=== PATIENT | male | born 1945 | race Caucasian/White ===

== ENCOUNTER 2017-09-03 15:17 | Inpatient (IN) | payer OTHER, MEDICARE ==
[~2017-09-03] VITALS: Ht 180.3 cm; Wt 138.9 kg
[2017-09-03 16:25] LABS: ABSOLUTE BASOPHIL COUNT 0 /CUMM (0.0-0.2); ABSOLUTE EOSINOPHIL COUNT 0.2 /CUMM (0.0-0.7); ABSOLUTE GRANULOCYTE CT 4.6 /CUMM (1.4-6.5); ABSOLUTE LYMPH COUNT 1.8 /CUMM (1.2-3.4); ABSOLUTE MONOCYTE COUNT 0.7 /CUMM (0.10-0.60); BASOPHIL % 0.5 % (0.0-2.0); EOSINOPHIL % 2.9 % (0-5); GRANULOCYTE % 62.5 % (42.2-75.2); HEMATOCRIT 37.7 % (42-52); MEAN CORPUSCULAR HGB 29.5 PG (27.0-31.0); MEAN CORPUSCULAR HGB CONC 33.5 G/DL (33.0-37.0); MEAN CORPUSCULAR VOLUME 88.2 FL (80.0-94.0); MEAN PLATELET VOLUME 9.1 FL (7.4-10.4); PLATELET COUNT 96 /CUMM (130-400); RBC DISTRIBUTION WIDTH 14.4 % (11.5-14.5); RED BLOOD CELL CT 4.28 /CUMM (4.70-6.10); WHITE BLOOD CELL COUNT 7.4 /CUMM (4.8-10.8)
--- NOTE | 2017-09-03 17:20 | ED DYSPNEA/ASTHMA COMPLAINT ---
History of Present Illness General Chief Complaint: General Adult Stated Complaint: SENT IN BY MD CORDOBA FOR ABNORMAL XRAY Source: patient Exam Limitations: no limitations Vital Signs & Intake/Output Vital Signs & Intake/Output Vital Signs Date Time Temp Pulse Resp B/P B/P Pulse O2 O2 Flow FiO2 Mean Ox Delivery Rate 09/04 0309 89 117/83 09/03 2244 97.4 66 18 140/80 94 Nasal 2.0L Cannula 09/03 2217 Nasal 2.0L Cannula 09/03 2054 98.2 72 22 154/68 92 Nasal 2.0L Cannula 09/03 2032 97.1 73 22 145/68 94 Nasal 2.0L Cannula 09/03 1955 Nasal 2.0L Cannula 09/03 1906 98.1 09/03 165 100 Nasal 2.0L Cannula 09/03 1656 97.3 77 20 121/64 100 Nasal 2.0L Cannula 09/03 1549 98.2 61 16 129/83 93 Room Air ED Intake and Output 09/04 0000 09/03 1200 Intake Total 0 Output Total Balance 0 Intake, Oral 0 Patient 306 lb Weight Weight Bed scale Measurement Method Allergies Coded Allergies: No Known Allergies (09/03/17) Triage Note: 72M C/O WORSENING SOB AT REST AND EXERTION X1 WEEK. DID AMBLATORY O2 AT DR SNEED OFFICE AND O2 SAT MID 80'S. AMB O2 90-91% IN TRIAGE AND 93% AT REST. REPORTS MARKETING RESEARCH COORDINATOR COUGH AND GENERAL MAILAISE. AFEBRILE. DENIES CHEST PAIN. DENIES SORE THROAT. ON COUMADIN FOR AFIB INR 2.9 TODAY Triage Nurses Notes Reviewed? yes Onset: Abrupt Duration: week(s):, constant, getting worse Timing: recent history Severity: severe HPI: 72-year-old male comes into the emergency room with worsening or shortness of breath has been going on for the past 6 months. Patient reports that his symptoms got profoundly worse over the past month in the past day especially. He has had a nonproductive cough. Shortness of breath is worse with exertion of any sort. He's had some intermittent chest tightness at times. Denies any fever. Denies any vomiting. Denies any diaphoresis. Denies any other associated symptoms. (Scot VENTURA,Montrell) Reconcile Medications Digoxin 250 MCG TABLET 1 TAB PO DAILY HEART (Reported) Fluticasone/Vilanterol (Breo Ellipta 200-25 Mcg INH) 200 MCG-25 MCG/DOSE BLST.W.DEV 1 PUFF INH QAM RESP. (Reported) Gabapentin 300 MG CAPSULE 1 CAP PO TID PRN NERVE PAIN (Reported) Glipizide 10 MG TABLET 1 TAB PO QAM DM (Reported) Insulin Glargine,Hum.rec.anlog (Lantus Solostar) 100 UNIT/ML (3 ML) INSULN.PEN 32 UNITS SC QAM DM (Reported) Insulin Lispro (Humalog Kwikpen U-100) 100 UNIT/ML INSULN.PEN 9 UNITS SC TIDAC /HS DM (Reported) Ipratropium [place] 21 MCG (0.03 %) SPRAY 2 SPRAY NASB AD PRN NASAL CONGESTION (Reported) Levocetirizine Dihydrochloride 5 MG TABLET 1 TAB PO QPM ALLERGIES (Reported) Metoprolol Succinate 200 MG TAB.ER.24H 1 TAB PO QAM HEART/BP (Reported) Metoprolol Succinate 100 MG TAB.ER.24H 1 TAB PO QPM HEART/BP (Reported) Multiple Vitamin (Multivitamins) 1 EACH TABLET 1 TAB PO DAILY SUPPLEMENT ( Reported) Oxycodone HCl/Acetaminophen (Oxycodone-Acetaminophen 5-325) 5 MG-325 MG TABLET 1 TAB PO TIDPRN PRN PAIN (Reported) Saxagliptin (Onglyza) 5 MG TABLET 1 TAB PO QAM DM (Reported) Trazodone HCl 100 MG TABLET 1 TAB PO QPM SLEEP (Reported) Valsartan 80 MG TABLET 1 TAB PO DAILY HEART (Reported) Warfarin Sodium (Jantoven) 7.5 MG TABLET 1 TAB PO Friday BLOOD THINNER (Reported) Warfarin Sodium (Coumadin) 5 MG TABLET 1 TAB PO [facility] BLOOD THINNER ( Reported) (Scott HICKEY,Venessa) Past History Travel History Traveled to [place] past 21 day No Medical History Any Pertinent Medical History? see below for history Cardiovascular: AFIB Endocrine: diabetes Surgical History Surgical History: non-contributory Psychosocial History Tobacco Use: Never used Family History Hx Contributory? No (Montrell Peres) Review of Systems Review of Systems Constitutional: Reports: no symptoms. EENTM: Reports: no symptoms. Respiratory: Reports: see HPI. Cardiovascular: Reports: no symptoms. GI: Reports: no symptoms. Genitourinary: Reports: no symptoms. Musculoskeletal: Reports: no symptoms. Skin: Reports: no symptoms. Neurological/Psychological: Reports: no symptoms. Hematologic/Endocrine: Reports: no symptoms. Immunologic/Allergic: Reports: no symptoms. All Other Systems: Reviewed and Negative (Montrell Peres) Physical Exam Physical Exam General Appearance: well developed/nourished, alert, awake Head: atraumatic, normal appearance Eyes: Bilateral: normal appearance. Ears, Nose, Throat: normal ENT inspection, hearing grossly normal Neck: normal inspection Respiratory: no respiratory distress, decreased breath sounds Cardiovascular: irregularly irregular Extremities: normal inspection Neurologic/Psych: awake, alert, oriented x 3 Skin: intact, normal color Core Measures ACS in differential dx? Yes CVA/TIA Diagnosis No Sepsis Present: No Sepsis Focused Exam Completed? No (Montrell Peres) Progress Differential Diagnosis: asthma, AMI, bronchitis, costochondritis, CHF, COPD, musculoskeletal pain, pericarditis, pulmonary embolism, pneumonia, pneumothorax, rib fracture, unstable angina Plan of Care: Orders Procedure Date/time Status Consistent Carbohydrate 3 09/04 B Active PROTHROMBIN TIME 09/04 06 Active CBC WITHOUT DIFFERENTIAL 09/04 0600 Active BASIC ELECTROLYTES PLUS BUN&CR 09/04 0600 Active PROTHROMBIN TIME 09/03 2344 Complete TRC EVALUATION (GEN) 09/03 2324 Active Pathway - chart 09/03 2324 Active House Staff 09/03 2324 Active Patient Data 09/03 2324 Active Code Status 09/03 2324 Active FingerStick- Glucose 09/03 225 Active Wound Care/Dressing 09/03 2252 Active Vital Signs 09/03 221 Active Teach/Educate 09/03 2214 Active Pain Treatment and Response 09/03 2214 Active Nutritional Intake, Monitor 09/03 2214 Active Isolation 09/03 2214 Active Intake & Output 09/03 2214 Active Patient Care Conference 09/03 2214 Active Activity/Ambulation 09/03 2214 Active OXYGEN SETUP (GEN) 09/03 2199 Complete Patient Data 09/03 205 Active Admit to inpatient 09/03 2044 Active Vital Signs 09/03 204 Active Intake & Output 09/03 1658 Complete B-TYPE NATRIURETIC PEP (BNP) 09/03 1614 Complete TROPONIN LEVEL 09/03 1605 Complete COMPREHENSIVE METABOLIC PANEL 09/03 1605 Complete CBC WITHOUT DIFFERENTIAL 09/03 1605 Complete RAPID VIRAL INFLUENZA A 09/03 1548 Complete EKG 09/03 1548 Active Lab Add-on Test 09/03 UNK Active VTE Mechanical Prophylaxis 09/03 UNK Active Vital Signs 09/03 UNK Complete Intake & Output 09/03 UNK Active Current Medications Sig/Shavon Start time Last Medication Dose Stop Time Status Admin Azithromycin 500 MG DAILY 09/04 1000 AC (Zithromax) Dextrose/Water 250 ML (D5W) Digoxin 0.25 MG DAILY 09/04 1000 AC (Lanoxin) Insulin Detemir 32 UNITS DAILY 09/04 1000 AC (Levemir) Losartan Potassium 25 MG DAILY 09/04 1000 AC (Cozaar) Methylprednisolone 40 MG Q12 09/04 1000 AC (Solumedrol) Metoprolol Succinate 200 MG DAILY 09/04 1000 CAN (Toprol Xl) Insulin Aspart 0 TIDAC 09/04 0800 AC (NovoLOG) Metoprolol Succinate 100 MG QPM 09/04 0300 AC 09/04 (Toprol Xl) 0309 Gabapentin 300 MG TID PRN 09/03 2330 AC (Neurontin) Acetaminophen 650 MG Q6P PRN 09/03 2315 AC (Tylenol) Oxycodone/ 1 TAB Q6P PRN 09/03 2315 AC Acetaminophen (Percocet) Laboratory Tests 09/04/17 0020: PT 32.8 H, INR 3.16 H 09/03/17 1614: Anion Gap 11, Estimated GFR > 60, BUN/Creatinine Ratio 30.0 H, Glucose 244 H, Calcium 8.9, Total Bilirubin 0.7, AST 40, ALT 51, Alkaline Phosphatase 60, Troponin I < 0.01, Kkl-R-Zyutrvugsxh Pept 1360 H, Total Protein 6.8, Albumin 3.3 L, Globulin 3.5, Albumin/Globulin Ratio 0.9 L, CBC w Diff NO MAN DIFF REQ, RBC 4.28 L, MCV 88.2, MCH 29.5, MCHC 33.5, RDW 14.4, MPV 9.1, Gran % 62.5, Lymphocytes % 24.5, Monocytes % 9.6 H, Eosinophils % 2.9, Basophils % 0.5, Absolute Granulocytes 4.6, Absolute Lymphocytes 1.8, Absolute Monocytes 0.7 H, Absolute Eosinophils 0.2, Absolute Basophils 0 Microbiology 09/03 1553 NASOPHARYN: Influenza Virus A & B Rapid Smear - COMP PATIENT REPORTS SEEING A MANAGER CLINICAL INFORMATICS IN [facility] 6 MONTHS AGO. DUE FOR PFT'S IN OCTOBER. HE WAS PRESCRIBED BREO. ALSO HAS A DIAGNOSIS OF LARISA BUT NON COMPLIANT WITH CPAP. TOLD THAT HE HAD SCARRING OF HIS LUNGS AND WAS EVALUTED AT THAT TIME FOR PNEUMONIA. PROGRESSIVE SOB WITH EXERTION FOR ONE MONTH BUT STATES THAT TODAY AND YESTERDAY SYMPTOMS GOT WORSE. (Scott HICKEY,Venessa) Diagnostic Imaging: Viewed by Me: CT Scan. Discussed w/RAD: CT Scan. Radiology Impression: PATIENT: ELAINE DELACRUZ PRESENT AGE: 72 PATIENT ACCOUNT NO: [id number] : 45 LOCATION: [facility] ORDERING PHYSICIAN: Montrell VENTURA SERVICE DATE: 09/03/17 EXAM TYPE: CAT - CTA CHEST-PULMONARY EMBOLISM EXAMINATION: CT ANGIOGRAM OF THE CHEST WITH AND WITHOUT CONTRAST (CT PULMONARY ANGIOGRAM FOR PE) CLINICAL INFORMATION: Shortness of breath and hypoxia. Assess for pulmonary embolus. COMPARISON: Chest x-ray obtained earlier 09/03/2017. TECHNIQUE: Prior to contrast administration, noncontrast localization images were obtained. Subsequently, multidetector volumetric imaging was performed from the thoracic inlet to below the diaphragms following the administration of 95 mL Optiray 320 intravenous contrast. No contrast reaction reported. Sagittal, coronal, and MIP oblique sagittal reformatted images were obtained on the CT workstation, uploaded to PACS, and reviewed. Total exam dose-length product 623.82 mGy-cm. FINDINGS: QUALITY OF STUDY/CONTRAST BOLUS: Satisfactory PULMONARY ARTERIES: There are no central or segmental pulmonary emboli or thrombi. THORACIC AORTA: There are atheromatous calcifications of the aortic arch and origins of the great vessels of the neck. There is no evidence of thoracic aortic aneurysm or dissection on the available images. LUNG: There are patchy areas of opacity in the left upper and left lower lobes peripherally. Subpleural nodular opacities with increased interstitial markings are seen in the right upper lobe anteriorly and at the right base posteriorly. Tree-in-bud opacities are seen in the anterior right upper lobe. PLEURA: There are small right and trace left pleural effusions. There is some fluid within the left major fissure. MEDIASTINUM: The heart is mildly prominent. There is no pericardial effusion. There are AP window, paratracheal, para-aortic , azygoesophageal and subcarinal enlarged lymph nodes measuring up to 2.2 cm ( image 31/69). The thyroid gland is not well assessed due to beam hardening artifact from adjacent contrast. The central airways are patent. The esophagus appears normal. No evidence of septal bowing or right heart strain. CHEST WALL/ AXILLA: There are no chest wall masses. There is no axillary lymphadenopathy. OSSEOUS STRUCTURES: There is a mild dextroscoliosis. There is multilevel narrowing of intervertebral disc height with marginal osteophytes and facet arthropathic changes. There are multilevel costovertebral degenerative changes. There are no suspicious lytic or sclerotic foci. The L1 transverse processes are partially articulated. UPPER ABDOMEN: The gallbladder is well-distended. The other upper abdominal structures are unremarkable. There is no reflux of contrast into the hepatic veins to suggest elevated right heart pressures. IMPRESSION: 1. There are no central segmental pulmonary emboli or thrombi. 2. There are multifocal interstitial changes, which may be consistent with interstitial lung disease, or inflammatory or infectious processes. These correspond to findings on the recent chest x-ray. There are small right and trace left pleural effusions. There is mild cardiomegaly. 3. There are enlarged mediastinal and subcarinal lymph nodes. VTE: Negative. DICTATED BY: Sylvester Cline MD DATE/TIME DICTATED:09/03/171804 HOME HEALTH CARE COORDINATOR:GALE DATE/TIME TRANSCRIBED:09/03/171804 CONFIDENTIAL, DO NOT COPY WITHOUT APPROPRIATE AUTHORIZATION. <Electronically signed in Other Vendor System> SIGNED BY: Sylvester Cline MD 09/03/17 1984 Initial ED EKG: rate (65), AFIB (Montrell Peres) Departure Departure Disposition: STILL A PATIENT Condition: Stable Clinical Impression Primary Impression: Hypoxia Secondary Impressions: Pulmonary fibrosis Referrals: Brittnee Sterling MD (PCP/Family) Departure Forms: Customer Survey General Discharge Information Admission Note Spoke With: Felicita Villagran MD Documentation of Exam: Documentation of any treatments & extenuating circumstances including Concerns Regarding Discharge (functional status, medication knowledge or non-compliance, living conditions, etc.) that warrant an admission rather than observation: Patient will require supplemental oxygen. Patient's oxygen saturation dropped to 88% upon ambulation. Patient feel short of breath. Patient will require IV steroids. Pulmonary consultation. Medically not safe for discharge. These areas in the lung potentially be infectious. Patient may require IV antibiotics repeat imaging. (Montrell Peres) PA/MARKETING RESEARCH COORDINATOR Co-Sign Statement Statement: ED Attending supervision documentation- [X] I saw and evaluated the patient. I have also reviewed all the pertinent lab results and diagnostic results. I agree with the findings and the plan of care as documented in the PA's/MARKETING RESEARCH COORDINATOR's documentation. [X] I have reviewed the ED Record and agree with the PA's/MARKETING RESEARCH COORDINATOR's documentation. [] Additions or exceptions (if any) to the PAs/MARKETING RESEARCH COORDINATOR's note and plan are summarized below: [] (Scott HICKEY,Venessa) Critical Care Note Critical Care Note Critical Care Time: non-applicable (Montrell Peres)
--- NOTE | 2017-09-03 18:24 | CT SCAN REPORT ---
EXAMINATION: CT ANGIOGRAM OF THE CHEST WITH AND WITHOUT CONTRAST (CT PULMONARY ANGIOGRAM FOR PE) CLINICAL INFORMATION: Shortness of breath and hypoxia. Assess for pulmonary embolus. COMPARISON: Chest x-ray obtained earlier 09/03/2017. TECHNIQUE: Prior to contrast administration, noncontrast localization images were obtained. Subsequently, multidetector volumetric imaging was performed from the thoracic inlet to below the diaphragms following the administration of 95 mL Optiray 320 intravenous contrast. No contrast reaction reported. Sagittal, coronal, and MIP oblique sagittal reformatted images were obtained on the CT workstation, uploaded to PACS, and reviewed. Total exam dose-length product 623.82 mGy-cm. FINDINGS: QUALITY OF STUDY/CONTRAST BOLUS: Satisfactory PULMONARY ARTERIES: There are no central or segmental pulmonary emboli or thrombi. THORACIC AORTA: There are atheromatous calcifications of the aortic arch and origins of the great vessels of the neck. There is no evidence of thoracic aortic aneurysm or dissection on the available images. LUNG: There are patchy areas of opacity in the left upper and left lower lobes peripherally. Subpleural nodular opacities with increased interstitial markings are seen in the right upper lobe anteriorly and at the right base posteriorly. Tree-in-bud opacities are seen in the anterior right upper lobe. PLEURA: There are small right and trace left pleural effusions. There is some fluid within the left major fissure. MEDIASTINUM: The heart is mildly prominent. There is no pericardial effusion. There are AP window, paratracheal, para-aortic, azygoesophageal and subcarinal enlarged lymph nodes measuring up to 2.2 cm (image 31/69). The thyroid gland is not well assessed due to beam hardening artifact from adjacent contrast. The central airways are patent. The esophagus appears normal. No evidence of septal bowing or right heart strain. CHEST WALL/AXILLA: There are no chest wall masses. There is no axillary lymphadenopathy. OSSEOUS STRUCTURES: There is a mild dextroscoliosis. There is multilevel narrowing of intervertebral disc height with marginal osteophytes and facet arthropathic changes. There are multilevel costovertebral degenerative changes. There are no suspicious lytic or sclerotic foci. The L1 transverse processes are partially articulated. UPPER ABDOMEN: The gallbladder is well-distended. The other upper abdominal structures are unremarkable. There is no reflux of contrast into the hepatic veins to suggest elevated right heart pressures. IMPRESSION: 1. There are no central segmental pulmonary emboli or thrombi. 2. There are multifocal interstitial changes, which may be consistent with interstitial lung disease, or inflammatory or infectious processes. These correspond to findings on the recent chest x-ray. There are small right and trace left pleural effusions. There is mild cardiomegaly. 3. There are enlarged mediastinal and subcarinal lymph nodes. VTE: Negative.
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
[2017-09-03] MEDS ORDERED: METOPROLOL SUC200 M2 PO (21:10)
[2017-09-03] MEDS ORDERED: DIGOXIN250 MCG PO (21:10)
[2017-09-03] MEDS ORDERED: GLIPIZIDE10 M2 PO (21:10)
[2017-09-03] MEDS ORDERED: METOPROLOL SUC100 M2 PO (21:11)
[2017-09-03] MEDS ORDERED: HUMALOG KW100 UNIT/1 SC (21:11)
[2017-09-03] MEDS ORDERED: VALSARTAN80 M1 PO (21:11)
[2017-09-03] MEDS ORDERED: LANTUS SOL100 UNIT/1 SC (21:12)
[2017-09-03] MEDS ORDERED: OXYCODONE-ACET1 EACH PO (21:12)
[2017-09-03] MEDS ORDERED: TRAZODONE HCL100 M1 PO (21:13)
[2017-09-03] MEDS ORDERED: JANTOVEN7.5 M1 PO (21:13)
[2017-09-03] MEDS ORDERED: BREO ELLIPTA 21 EACH INH (21:14)
[2017-09-03] MEDS ORDERED: GABAPENTIN300 M2 PO (21:14)
[2017-09-03] MEDS ORDERED: LEVOCETIRIZINE D5 M1 PO (21:14)
[2017-09-03] MEDS ORDERED: COUMADIN5 M2 PO (21:14)
[2017-09-03] MEDS ORDERED: MULTIVITAMINS1 EAC9 PO (21:15)
[2017-09-03] MEDS ORDERED: ONGLYZA5 M1 PO (21:15)
[2017-09-03] MEDS ORDERED: IPRATROPIUM BRO30 M2 NASB (21:15)
[2017-09-03 22:44] VITALS: BP 140/80
[2017-09-04 00:52] LABS: PT 32.8 SEC (9.4-12.5)
[2017-09-04 06:11] VITALS: BP 150/78
--- NOTE | 2017-09-04 08:01 | PN- Housestaff ---
[place] 09/04/17 0801: Subjective Follow-up For: Acute hypoxic respiratory failure due to COPD exacerbation Interstitial lung disease Subjective: No overnight events. Patient remained afebrile bladder. Seen and examined this morning. He is using 2 L of oxygen maintaining saturation 92%. Patient denied any chest pain, short of breath, nausea, vomiting, abdominal pain dysuria. Patient is following bark tanner (Dr. Estrada)as outpatient and he is scheduled for pulmonary function test in October 2017. Review of Systems Constitutional: Reports: no symptoms. EENTM: Reports: no symptoms. Cardiovascular: Reports: no symptoms. Respiratory: Reports: see HPI. Gastrointestinal: Reports: no symptoms. Genitourinary: Reports: no symptoms. Neurological/Psychological: Reports: no symptoms. Objective Last 24 Hrs of Vital Signs/I&O Vital Signs Date Time Temp Pulse Resp B/P B/P Pulse O2 O2 Flow FiO2 Mean Ox Delivery Rate 09/04 0852 66 148/76 09/04 0852 66 148/76 09/04 0800 93 Nasal 2.0L Cannula 09/04 0611 97.9 63 18 150/78 92 Nasal Cannula 09/04 0309 89 117/83 09/03 2244 97.4 66 18 140/80 94 Nasal 2.0L Cannula 09/03 2218 Nasal 2.0L Cannula 09/03 2054 98.2 72 22 154/68 92 Nasal 2.0L Cannula 09/03 2033 97.1 73 22 145/68 94 Nasal 2.0L Cannula 09/03 1956 Nasal 2.0L Cannula 09/03 1906 98.1 09/03 1657 100 Nasal 2.0L Cannula 09/03 165 97.3 77 20 121/64 100 Nasal 2.0L Cannula 09/03 1549 98.2 61 16 129/83 93 Room Air Intake & Output 09/04 1600 09/04 0800 09/04 0000 Intake Total 1050 0 Output Total Balance 1050 0 Intake, IV 250 Intake, Oral 800 0 Patient 306 lb Weight Weight Bed scale Measurement Method Physical Exam General Appearance: Alert, Oriented X3, Cooperative, No Acute Distress Skin Temp/Moisture Exam: Warm/Dry Sepsis Skin Exam (color): Normal for Ethnicity HEENT: Atraumatic, PERRLA, EOMI Neck: Supple Cardiovascular: Normal S1, Normal S2 Lungs: Decreased breath sound b/l Abdomen: Soft, No Tenderness Neurological: Normal Speech, Strength at 5/5 X4 Ext, Normal Tone, Sensation Intact Extremities: B/L pedal edema Assessment/Plan Assessment: 72 YO M with PMH of obstructive sleep apnea noncompliant on CPAP, DM and A. fib on warfarin presenting for worsening shortness of breath. The patient was at his electrician underground's office (Dr. Alejandro) when ambulating oxygen patient test was performed and he was satting at 82%. He was advised to get a chest x-ray and then went home. We will admit the patient on general medicine floor for the treatment of acute hypoxic respiratory failure due to COPD exacerbation. Acute hypoxic respiratory failure due to COPD exacerbation: -Patient reported desaturated to 82% on routine follow-up visit with cardiology. -Oxygen supplementation as needed to keep oxygen saturation above 92%. -TRC nebulization as needed -IV Solu-Medrol changed to by mouth prednisone. -Sputum cultures -IV azithromycin for 5 days -We will continue Mucinex -We will follow pulmonology recommendations History of Diabetes mellitus: -Accu-Cheks -Insulin NovoLog according to sliding scale -We will continue insulin Levemir 32 units daily History of A. fib: -We will continue warfarin according to INR to keep it 2-2.5 -We will continue metoprolol according to the recommendations of electrician underground. History of hypertension: We will continue metoprolol and losartan History of chronic pain: We'll continue his home medications. DVT Prophylaxis: Mechanical and patient is already on warfarin CODE STATUS: Full code Problem List: 1. COPD exacerbation 2. Acute respiratory failure with hypoxia Pain Ratin Pain Location: none Pain Goal: Remain pain free Pain Plan: pain path way Tomorrow's Labs & Rationales: cbc/bep/inr Ghulam Huizar MD 09/04/17 1637: Attending MD Review Statement Attending Statement Attending MD Statement: examined this patient, discuss w/resident/PA/SUPPLIER QUALITY, agreed w/resident/PA/SUPPLIER QUALITY, reviewed EMR data (avail) Attending Assessment/Plan: 72M PMH paroxysmal atrial fibrillation on Coumadin, HTN, COPD, ILD presenting with dyspnea and hypoxia 82%, with CT showing evidence of ILD with mediastinal and hilar lymphadenopathy. Patient feels better today. His breathing has improved. He has no other complaints. Vitals stable. 1. Acute exacerbation of interestitial lung disease 2. Acute hypoxemic respiratory failure Plan - Continue on general medicine - Continue Prednisone - Continue IV Lasix - I/O, daily weights - Cardiology and pulmonary consults - Obtain echocardiogram - Continue Azithromycin - Nebulizer treatments - Titrate down oxygen as tolerated - Continue home medications - DVT PPx
--- NOTE | 2017-09-04 08:26 | Admission Certification ---
Admission Certification Certification Statement - As attending physician, I certify that at the time of - admission, based on clinical presentation, severity of - symptoms, need for further diagnostic testing and - therapeutic interventions, and risk of adverse outcomes - without in-hospital treatment, in my clinical assessment, - this patient requires an acute hospital stay for a minimum - of two nights or longer. I have also considered psychsocial - factors such as support system, advanced age, financial - issues, cognitive issues, and failed out-patient treatments, - past re-admission history, safety of patient, and lack of - compliance as applicable. Specific rationale supporting this admission is: COPD exacerbation, suspected ILD
[2017-09-04 08:56] LABS: ABSOLUTE BASOPHIL COUNT 0 /CUMM (0.0-0.2); ABSOLUTE EOSINOPHIL COUNT 0 /CUMM (0.0-0.7); ABSOLUTE GRANULOCYTE CT 6.4 /CUMM (1.4-6.5); ABSOLUTE LYMPH COUNT 0.9 /CUMM (1.2-3.4); ABSOLUTE MONOCYTE COUNT 0.1 /CUMM (0.10-0.60); BASOPHIL % 0.3 % (0.0-2.0); EOSINOPHIL % 0 % (0-5); HEMATOCRIT 40.7 % (42-52); MEAN CORPUSCULAR HGB 29.5 PG (27.0-31.0); MEAN CORPUSCULAR HGB CONC 33.4 G/DL (33.0-37.0); MEAN CORPUSCULAR VOLUME 88.3 FL (80.0-94.0); MEAN PLATELET VOLUME 10.1 FL (7.4-10.4); RBC DISTRIBUTION WIDTH 14.1 % (11.5-14.5); RED BLOOD CELL CT 4.61 /CUMM (4.70-6.10); WHITE BLOOD CELL COUNT 7.4 /CUMM (4.8-10.8)
[2017-09-04 10:00] LABS: GRANULOCYTE % 85.9 % (42.2-75.2); PLATELET COUNT 90 /CUMM (130-400)
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
[2017-09-04 15:10] VITALS: BP 148/80
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
[2017-09-04 22:22] VITALS: BP 140/80
[2017-09-05 07:11] VITALS: BP 144/82
--- NOTE | 2017-09-05 07:45 | PN- Housestaff ---
[facility]45: Subjective Follow-up For: Acute hypoxic respiratory failure due to COPD exacerbation Interstitial lung disease Hypomagnesemia Subjective: No overnight events. Patient remained afebrile overnight. Seen and examined this morning. Patient is using 2 L of oxygen maintaining saturation 94%. Patient denied any chest pain, short of breath, nausea, vomiting, chills, fever, abdominal pain dysuria. Review of Systems Constitutional: Reports: no symptoms. EENTM: Reports: no symptoms. Cardiovascular: Reports: no symptoms. Respiratory: Reports: see HPI. Gastrointestinal: Reports: no symptoms. Musculoskeletal: Reports: no symptoms. Neurological/Psychological: Reports: no symptoms. Objective Last 24 Hrs of Vital Signs/I&O Vital Signs Date Time Temp Pulse Resp B/P B/P Pulse O2 O2 Flow FiO2 Mean Ox Delivery Rate 09/05 0915 80 144/82 09/05 0915 80 144/82 09/05 0800 94 Nasal 2.0L Cannula 09/05 0711 97.9 80 22 144/82 94 Nasal 2.0L Cannula 09/05 0000 Nasal 2.0L Cannula 09/04 2224 140/80 02 2222 97.9 82 22 140/80 94 Nasal 2.0L Cannula 09/04 2054 94 Nasal 2.0L Cannula 09/04 1735 Nasal 2.0L Cannula 09/04 1600 94 Nasal 2.0L Cannula 09/04 1510 97.7 80 30 148/80 92 Nasal 2.0L Cannula Intake & Output 09/05 1600 09/05 0800 09/05 0000 Intake Total 800 Output Total Balance 800 Intake, Oral 800 Physical Exam General Appearance: Alert, Oriented X3, Cooperative Skin Temp/Moisture Exam: Warm/Dry Sepsis Skin Exam (color): Normal for Ethnicity HEENT: Atraumatic, PERRLA, EOMI Neck: Supple Cardiovascular: Normal S1, Normal S2 Lungs: Clear to Auscultation Abdomen: Soft, No Tenderness Neurological: Normal Speech, Strength at 5/5 X4 Ext, Normal Tone, Sensation Intact Extremities: B/L pedal edema Assessment/Plan Assessment: 72 YO M with PMH of obstructive sleep apnea noncompliant on CPAP, DM and A. fib on warfarin presenting for worsening shortness of breath. The patient was at his mover helper's office (Dr. Alejandro) when ambulating oxygen patient test was performed and he was satting at 82%. He was advised to get a chest x-ray and then went home. We will admit the patient on general medicine floor for the treatment of acute hypoxic respiratory failure due to COPD exacerbation. Acute hypoxic respiratory failure due to COPD exacerbation: -Patient reported desaturated to 82% on routine follow-up visit with cardiology. -Oxygen supplementation as needed to keep oxygen saturation above 92%. -TRC nebulization as needed -Continue prednisone 40mg -Sputum cultures -IV azithromycin for 5 days. Day 2 -We will continue Mucinex -We will follow pulmonology recommendations Hypomagnesemia: -we will replete magnesium. -we will follow the levels. History of Diabetes mellitus: -Accu-Cheks -Insulin NovoLog according to sliding scale -We will continue insulin Levemir 32 units daily History of A. fib: -We will continue warfarin according to INR to keep it 2-2.5 -We will continue metoprolol according to the recommendations of mover helper. History of hypertension: We will continue metoprolol and losartan History of chronic pain: We'll continue his home medications. DVT Prophylaxis: Mechanical and patient is already on warfarin CODE STATUS: Full code Problem List: 1. Acute respiratory failure with hypoxia 2. COPD exacerbation Pain Ratin Pain Location: none Pain Goal: Remain pain free Pain Plan: pain pathway Tomorrow's Labs & Rationales: cbc/bep/inr Ghulam Huizar MD 09/05/17 1329: Attending MD Review Statement Attending Statement Attending MD Statement: examined this patient, discuss w/resident/PA/REGULATORY COMPLIANCE SPECIALIST, agreed w/resident/PA/REGULATORY COMPLIANCE SPECIALIST, reviewed EMR data (avail) Attending Assessment/Plan: 72M PMH paroxysmal atrial fibrillation on Coumadin, HTN, COPD, ILD presenting with dyspnea and hypoxia 82%, with CT showing evidence of ILD with mediastinal and hilar lymphadenopathy. Patient feels better today. His breathing has improved. He has no other complaints. Vitals stable. His leg edema appears much improved. 1. Acute exacerbation of interestitial lung disease 2. Acute hypoxemic respiratory failure Plan - Continue on general medicine - Continue Prednisone - Continue IV Lasix - I/O, daily weights - Cardiology and pulmonary consults - Obtain echocardiogram - Continue Azithromycin - Nebulizer treatments - Titrate down oxygen as tolerated - Continue home medications - DVT PPx
[2017-09-05 08:19] LABS: PT 20.3 SEC (9.4-12.5)
[2017-09-05 09:11] LABS: ABSOLUTE BASOPHIL COUNT 0 /CUMM (0.0-0.2); ABSOLUTE EOSINOPHIL COUNT 0 /CUMM (0.0-0.7); ABSOLUTE GRANULOCYTE CT 10.2 /CUMM (1.4-6.5); ABSOLUTE LYMPH COUNT 1.9 /CUMM (1.2-3.4); ABSOLUTE MONOCYTE COUNT 0.6 /CUMM (0.10-0.60); BASOPHIL % 0.4 % (0.0-2.0); EOSINOPHIL % 0.3 % (0-5); GRANULOCYTE % 79.8 % (42.2-75.2); HEMATOCRIT 40.4 % (42-52); MEAN CORPUSCULAR HGB 29.3 PG (27.0-31.0); MEAN CORPUSCULAR HGB CONC 33.2 G/DL (33.0-37.0); MEAN CORPUSCULAR VOLUME 88.4 FL (80.0-94.0); MEAN PLATELET VOLUME 9.8 FL (7.4-10.4); PLATELET COUNT 115 /CUMM (130-400); RBC DISTRIBUTION WIDTH 14.4 % (11.5-14.5); RED BLOOD CELL CT 4.57 /CUMM (4.70-6.10)
--- NOTE | 2017-09-05 09:26 | ECHOCARDIOGRAM REPORT ---
ELAINE DELACRUZ Age: 72 : 1945 Gender: M Exam Date: 09/04/2017 18:52 Exam Location: [address] [place] [address] Ht (in): 71 Wt (lb): 306 BSA: 2.70 BP: 148 / 80 Ordering Physician: Issac Izquierdo MD Referring Physician: Jd Alejandro MD Technologist: Lissa Carty [facility] Room Number: 215-01 Indications: SHORTNESS OF BREATH Rhythm: Atrial fibrillation Technical Quality: good FINDINGS Left Ventricle Normal left ventricular size, wall thickness and systolic function with no obvious regional wall motion abnormalities. The ejection fraction is visually estimated at 60%. Right Ventricle The right ventricle is normal in size and function. Right Atrium The right atrium is normal in size. Left Atrium The left atrium is moderately enlarged. The interatrial septum is intact. Mitral Valve The mitral valve is normal in structure and function. There is trace to mild mitral regurgitation. Aortic Valve Midly thickened aortic valve without significant sclerosis or stenosis. There is no aortic regurgitation. Tricuspid Valve The tricuspid valve is normal in structure and function. There is mild tricuspid regurgitation. Pulmonary artery systolic pressure is elevated to 50mm Hg. Pulmonic Valve Structurally normal pulmonic valve. There is no pulmonic regurgitation. Pericardium Normal pericardium without effusion. No pleural effusion. Great Vessels Normal aortic root dimension. The aortic arch and great vessels are well seen and are normal. CONCLUSIONS 1. Normal EF of 60%. 2. Moderate left atrial enlargement. 3. Trace to mild mitral regurgitation. 4. Mild tricuspid regurgitation. 5. Moderate pulmonary hypertension. Arian Giron M.D. (Electronically Signed) Final Date: 05 September 2017 09:25 MEASUREMENTS (Male / Female) Normal Values 2D ECHO LV Diastolic Diameter PLAX 5.1 cm 4.2 - 5.9 / 3.9 - 5.3 cm LV Systolic Diameter PLAX 2.7 cm 2.1 - 4.0 cm LV Fractional Shortening PLAX 47.1 % 25 - 46 % LV Ejection Fraction 2D Teich 78.2 % IVS Diastolic Thickness 1.0 cm LVPW Diastolic Thickness 1.2 cm LV Relative Wall Thickness 0.4 RV Internal Dim ED PLAX 3.4 cm 1.9 - 3.8 cm LVOT Diameter 2.1 cm Aortic Root Diameter 3.2 cm LA Systolic Diameter LX 4.7 cm 3.0 - 4.0 / 2.7 - 3.8 cm LA Volume 92.0 cm 18 - 58 / 22 - 52 cm Ascending Aorta Diameter 3.4 cm DOPPLER AV Peak Velocity 154.0 cm/s AV Peak Gradient 9.5 mmHg AV Mean Velocity 104.0 cm/s AV Mean Gradient 5.0 mmHg AV Velocity Time Integral 28.3 cm LVOT Peak Velocity 94.4 cm/s LVOT Peak Gradient 3.6 mmHg LVOT Mean Velocity 62.8 cm/s LVOT Mean Gradient 2.0 mmHg LVOT Velocity Time Integral 17.3 cm LVOT Stroke Volume 59.9 cm AV Area Cont Eq vti 2.1 cm AV Area Cont Eq pk 2.1 cm MV Peak Velocity 150.0 cm/s MV Peak Gradient 9.0 mmHg MV Mean Velocity 62.4 cm/s MV Mean Gradient 2.0 mmHg Mitral E Point Velocity 127.0 cm/s MV PHT Velocity 163.0 cm/s MV Deceleration [place] 881.0 cm/s MV Pressure Half Time 55.5 ms MV Area PHT 4.0 cm MV Deceleration Time 169.0 ms TR Peak Velocity 336.0 cm/s TR Peak Gradient 45.2 mmHg Right Atrial Pressure 5.0 mmHg Pulmonary Artery Systolic Pressu 50.2 mmHg Right Ventricular Systolic Press 50.2 mmHg PV Peak Velocity 92.2 cm/s PV Peak Gradient 3.4 mmHg PV Mean Velocity 67.1 cm/s PV Mean Gradient 2.0 mmHg PV Velocity Time Integral 19.5 cm LV E' Lateral Velocity 15.2 cm/s Mitral E to LV E' Lateral Ratio 8.4 LV E' Septal Velocity 16.3 cm/s Mitral E to LV E' Septal Ratio 7.8
[2017-09-05 09:38] LABS: WHITE BLOOD CELL COUNT 12.7 /CUMM (4.8-10.8)
--- NOTE | 2017-09-05 10:21 | PN- Pulmonary ---
Subjective HPI/Critical Care Issues: Appears comfortable Laying in bed Objective Current Medications: Current Medications Sig/Shavon Start time Last Medication Dose Route Stop Time Status Admin Acetaminophen 650 MG Q6P PRN 09/03 2315 AC PO Albuterol Sulfate 3 ML Q4-PRN PRN 09/04 1745 AC 09/04 INH 2051 Azithromycin 500 MG DAILY 09/04 1000 AC 09/05 Dextrose/Water 250 ML IV 0915 Digoxin 0.25 MG DAILY 09/04 1000 AC 09/05 PO 0915 Furosemide 20 MG DAILY 09/05 1000 AC 09/05 IV 0915 Furosemide 40 MG ONCE ONE 09/04 1445 DC 09/04 IV 09/04 1446 1537 Gabapentin 300 MG TID PRN 09/03 2330 AC 09/04 PO 2220 Insulin Aspart 0 TIDAC 09/04 0800 AC 09/05 SC 0811 Insulin Detemir 32 UNITS DAILY 09/04 1000 AC 09/05 SC 0810 Losartan Potassium 25 MG DAILY 09/04 1000 AC 09/05 PO 0915 Methylprednisolone 40 MG Q12 09/04 1000 DC 09/04 IV 0851 Metoprolol Succinate 100 MG QPM 09/04 0300 AC 09/04 PO 2224 Oxycodone/ 1 TAB Q6P PRN 09/03 2315 AC 09/04 Acetaminophen PO 2220 Prednisone 40 MG DAILY 09/05 1000 AC 09/05 PO 0915 Trazodone HCl 100 MG ONCE ONE 09/04 2030 DC 09/04 PO 09/04 2031 2220 Warfarin Sodium 2 MG COUMADIN 1700 ONE 09/04 1700 DC 09/04 PO 09/04 1701 1739 Vital Signs & I&O Last 24 Hrs of Vitals and I&O: Vital Signs Date Time Temp Pulse Resp B/P B/P Pulse O2 O2 Flow FiO2 Mean Ox Delivery Rate 09/05 0915 80 144/82 09/05 0915 80 144/82 09/05 0800 94 Nasal 2.0L Cannula 09/05 0711 97.9 80 22 144/82 94 Nasal 2.0L Cannula 09/05 0000 Nasal 2.0L Cannula 09/04 2224 140/80 09/04 2222 97.9 82 22 140/80 94 Nasal 2.0L Cannula 09/04 2054 94 Nasal 2.0L Cannula 09/04 1735 Nasal 2.0L Cannula 09/04 1600 94 Nasal 2.0L Cannula 09/04 1510 97.7 80 30 148/80 92 Nasal 2.0L Cannula Intake & Output 09/05 1600 09/05 0800 09/05 0000 Intake Total 800 Output Total Balance 800 Intake, Oral 800 Laboratory Tests 09/05 09/05 09/04 0831 0715 1555 Chemistry Sodium (137 - 145 mmol/L) 138 Potassium (3.5 - 5.1 mmol/L) 4.1 Chloride (98 - 107 mmol/L) 97 L Carbon Dioxide (22 - 30 mmol/L) 30 Anion Gap (5 - 16) 11 BUN (9 - 20 mg/dL) 18 Creatinine (0.7 - 1.2 mg/dL) 0.5 L Estimated GFR (>60 ml/min) > 60 BUN/Creatinine Ratio (7 - 25 %) 36.0 H TSH &T3 &Free T4 Intrp (0.27 - 4.20 uIU/mL) 0.858 Coagulation PT (9.4 - 12.5 SEC) 20.3 H INR (0.90 - 1.17) 1.95 H Hematology CBC w Diff NO MAN DIFF REQ WBC (4.8 - 10.8 /CUMM) 12.7 H RBC (4.70 - 6.10 /CUMM) 4.57 L Hgb (14.0 - 18.0 G/DL) 13.4 L Hct (42 - 52 %) 40.4 L MCV (80.0 - 94.0 FL) 88.4 MCH (27.0 - 31.0 PG) 29.3 MCHC (33.0 - 37.0 G/DL) 33.2 RDW (11.5 - 14.5 %) 14.4 Plt Count (130 - 400 /CUMM) 115 L MPV (7.4 - 10.4 FL) 9.8 Gran % (42.2 - 75.2 %) 79.8 H Lymphocytes % (20.5 - 51.1 %) 14.8 L Monocytes % (1.7 - 9.3 %) 4.7 Eosinophils % (0 - 5 %) 0.3 Basophils % (0.0 - 2.0 %) 0.4 Absolute Granulocytes (1.4 - 6.5 /CUMM) 10.2 H Absolute Lymphocytes (1.2 - 3.4 /CUMM) 1.9 Absolute Monocytes (0.10 - 0.60 /CUMM) 0.6 Absolute Eosinophils (0.0 - 0.7 /CUMM) 0 Absolute Basophils (0.0 - 0.2 /CUMM) 0 Serology Hepatitis C Antibody (NONREACTIVE) Pending HCV RNA (PCR) IUs/ml Pending HCV RNA PCR log IUs/ml Pending 09/04 09/04 09/04 0741 0600 0020 Chemistry Sodium (137 - 145 mmol/L) 139 Potassium (3.5 - 5.1 mmol/L) 4.2 Chloride (98 - 107 mmol/L) 98 Carbon Dioxide (22 - 30 mmol/L) 26 Anion Gap (5 - 16) 15 BUN (9 - 20 mg/dL) 16 Creatinine (0.7 - 1.2 mg/dL) 0.5 L Estimated GFR (>60 ml/min) > 60 BUN/Creatinine Ratio (7 - 25 %) 32.0 H Hemoglobin A1c (4.2 - 5.8 %) 9.9 H Magnesium (1.6 - 2.3 mg/dL) 1.2 L Troponin I (<0.11 ng/ml) < 0.01 Cancelled Coagulation PT (9.4 - 12.5 SEC) 28.0 H 32.8 H INR (0.90 - 1.17) 2.69 H 3.16 H Hematology CBC w Diff NO MAN DIFF REQ WBC (4.8 - 10.8 /CUMM) 7.4 RBC (4.70 - 6.10 /CUMM) 4.61 L Hgb (14.0 - 18.0 G/DL) 13.6 L Hct (42 - 52 %) 40.7 L MCV (80.0 - 94.0 FL) 88.3 MCH (27.0 - 31.0 PG) 29.5 MCHC (33.0 - 37.0 G/DL) 33.4 RDW (11.5 - 14.5 %) 14.1 Plt Count (130 - 400 /CUMM) 90 L MPV (7.4 - 10.4 FL) 10.1 Gran % (42.2 - 75.2 %) 85.9 H Lymphocytes % (20.5 - 51.1 %) 12.5 L Monocytes % (1.7 - 9.3 %) 1.3 L Eosinophils % (0 - 5 %) 0 Basophils % (0.0 - 2.0 %) 0.3 Absolute Granulocytes (1.4 - 6.5 /CUMM) 6.4 Absolute Lymphocytes (1.2 - 3.4 /CUMM) 0.9 L Absolute Monocytes (0.10 - 0.60 /CUMM) 0.1 Absolute Eosinophils (0.0 - 0.7 /CUMM) 0 Absolute Basophils (0.0 - 0.2 /CUMM) 0 09/03 1614 Chemistry Sodium (137 - 145 mmol/L) 139 Potassium (3.5 - 5.1 mmol/L) 4.3 Chloride (98 - 107 mmol/L) 99 Carbon Dioxide (22 - 30 mmol/L) 28 Anion Gap (5 - 16) 11 BUN (9 - 20 mg/dL) 15 Creatinine (0.7 - 1.2 mg/dL) 0.5 L Estimated GFR (>60 ml/min) > 60 BUN/Creatinine Ratio (7 - 25 %) 30.0 H Glucose (65 - 99 mg/dL) 244 H Calcium (8.4 - 10.2 mg/dL) 8.9 Total Bilirubin (0.2 - 1.3 mg/dL) 0.7 AST (17 - 59 U/L) 40 ALT (21 - 72 U/L) 51 Alkaline Phosphatase (< 127 U/L) 60 Troponin I (<0.11 ng/ml) < 0.01 [id number] Pept (<125 pg/mL) 1360 H Total Protein (6.3 - 8.2 g/dL) 6.8 Albumin (3.5 - 5.0 g/dL) 3.3 L Globulin (1.9 - 4.2 gm/dL) 3.5 Albumin/Globulin Ratio (1.1 - 2.2 %) 0.9 L Hematology CBC w Diff NO MAN DIFF REQ WBC (4.8 - 10.8 /CUMM) 7.4 RBC (4.70 - 6.10 /CUMM) 4.28 L Hgb (14.0 - 18.0 G/DL) 12.6 L Hct (42 - 52 %) 37.7 L MCV (80.0 - 94.0 FL) 88.2 MCH (27.0 - 31.0 PG) 29.5 MCHC (33.0 - 37.0 G/DL) 33.5 RDW (11.5 - 14.5 %) 14.4 Plt Count (130 - 400 /CUMM) 96 L MPV (7.4 - 10.4 FL) 9.1 Gran % (42.2 - 75.2 %) 62.5 Lymphocytes % (20.5 - 51.1 %) 24.5 Monocytes % (1.7 - 9.3 %) 9.6 H Eosinophils % (0 - 5 %) 2.9 Basophils % (0.0 - 2.0 %) 0.5 Absolute Granulocytes (1.4 - 6.5 /CUMM) 4.6 Absolute Lymphocytes (1.2 - 3.4 /CUMM) 1.8 Absolute Monocytes (0.10 - 0.60 /CUMM) 0.7 H Absolute Eosinophils (0.0 - 0.7 /CUMM) 0.2 Absolute Basophils (0.0 - 0.2 /CUMM) 0 Microbiology Date/Time Procedure - Status Source Growth 09/04 1535 Influenza Virus A & B Rapid Smear - COMP NASOPHARYN 09/03 1553 Influenza Virus A & B Rapid Smear - COMP NASOPHARYN Impression/Plan Impression/Plan Impression/Plan: Physical Exam General Appearance Alert, Oriented X3, Cooperative, No Acute Distress Neck no JVD Cardiovascular Regular Rate, Normal S1, Normal S2 Lungs basilar crackles Abdomen Normal Bowel Sounds, Soft, No Tenderness Extremities 2+ LE edema, L wrist wart removal x2 CT CHEST 09/03/17 PULMONARY ARTERIES: There are no central or segmental pulmonary emboli or thrombi. LUNG: There are patchy areas of opacity in the left upper and left lower lobes peripherally. Subpleural nodular opacities with increased interstitial markings are seen in the right upper lobe anteriorly and at the right base posteriorly. Tree-in-bud opacities are seen in the anterior right upper lobe. PLEURA: There are small right and trace left pleural effusions. There is some fluid within the left major fissure. MEDIASTINUM: The heart is mildly prominent. There is no pericardial effusion. There are AP window, paratracheal, para-aortic, azygoesophageal and subcarinal enlarged lymph nodes measuring up to 2.2 cm (image 31/69). The thyroid gland is not well assessed due to beam hardening artifact from adjacent contrast. The central airways are patent. The esophagus appears normal. No evidence of septal bowing or right heart strain. CHEST WALL/AXILLA: There are no chest wall masses. There is no axillary lymphadenopathy. UPPER ABDOMEN: The gallbladder is well-distended. The other upper abdominal structures are unremarkable. There is no reflux of contrast into the hepatic veins to suggest elevated right heart pressures. IMPRESSION: 1. There are no central segmental pulmonary emboli or thrombi. 2. There are multifocal interstitial changes, which may be consistent with interstitial lung disease, or inflammatory or infectious processes. These correspond to findings on the recent chest x-ray. There are small right and trace left pleural effusions. There is mild cardiomegaly. 3. There are enlarged mediastinal and subcarinal lymph nodes. VTE: Negative. IMPRESSION This is a gentleman with morbid obesity, previous diagnosis sleep apnea not on CPAP therapy, atrial fibrillation on anticoagulation, diabetes, morbid obesity, cirrhosis of the liver with previous alcohol abuse, previous hepatitis C infection, carpal tunnel syndrome, thrombocytopenia, previous history of significant smoking with previous CT scans being followed by Dr. Deshawn Estrada, with CT suggestive of nonspecific interstitial pneumonitis with previous workup for inflammatory and vasculitis negative, with recent rheumatology evaluation which did apparently suggest that he did not have any active inflammatory disease, previous pneumonia with left-sided pleural effusion which seems to have resolved now, is now admitted with shortness of breath. His issues include * Interstitial lung disease which appears to be nonspecific ILD which has been present and seems to be slowly progressing in the recent past year causing to have hypoxemia on exertion. At this time he may have a mild exacerbation of acute interstitial pneumonitis. * Significant mediastinal and subcarinal lymphadenopathy which is new for him as his last CT did not suggest this. Rule out malignancy but however no major lung opacity or nodule noted in the CT scan. This may be a reactive lymphadenopathy * Clinical evidence suggestive of a mild congestive heart failure with elevated proBNP probably diastolic dysfunction * Previous CT scan suggestive of cirrhosis of the liver with portal hypertension with low platelets suggestive of that. CT scan of the chest did not reveal any significant ascites. * Bilateral pedal edema, clinical evidence suggestive of total body fluid overload may be related to right heart dysfunction from untreated sleep apnea and interstitial lung disease compounded by cirrhosis * No clinical evidence suggestive of significant COPD exacerbation. Patient has interstitial lung disease predominantly. He does have recurrent bronchitis RECOMMENDATION * Change him to by mouth prednisone 40 mg daily and wean over 2 weeks * Continue azithromycin for five days * Intravenous Lasix 40 mg 1 now, and continue on Lasix 20 mg IV every 12 hrs * Wean oxygen and ambulate, and if oxygen sat is more 90 on room air at rest and more than 83 on excertion then dc oxygen * Keep his potassium more than 4 * Replace magnesium * Continue to monitor sugar * Keep his INR at 2-2.5 * Nebulizer therapy only as needed if he is wheezing * Follow his platelets * Increase activity * Keep his head of bed elevated * Confirm his outpatient medications * Patient would require an outpatient PET scan as he has significant lymphadenopathy and eventually might require bronchoscopy with endobronchial ultrasound-guided biopsy of his lymph nodes and probable biopsy of this lung depending on his pulmonary artery pressures from his echocardiogram Will discuss with his out pt Deanne HICKEY
--- NOTE | 2017-09-05 11:54 | RADIOLOGY REPORT ---
EXAMINATION: XR PORTABLE CHEST CLINICAL INFORMATION: Shortness of breath. Follow-up fluid overload. COMPARISON: 09/03/2017 TECHNIQUE: Portable frontal view of the chest was obtained. FINDINGS: Cardiomegaly and persistent pulmonary vascular congestion. However, interval improvement as manifest by decreased interstitial opacity in both lungs. There is some residual peribronchial thickening in both lungs. The left lateral costophrenic sulcus is partially excluded from the [id number]. No pneumothorax or other interval change. IMPRESSION: Interval improvement in pulmonary edema compared to 09/03/2017.
--- NOTE | 2017-09-05 11:55 | PN- Cardiology ---
Subjective Subjective: Breathing has improved. Objective Vital Signs and I&Os Vital Signs Date Time Temp Pulse Resp B/P B/P Pulse O2 O2 Flow FiO2 Mean Ox Delivery Rate 09/05 0915 80 144/82 09/05 0915 80 144/82 09/05 0800 94 Nasal 2.0L Cannula 09/05 0711 97.9 80 22 144/82 94 Nasal 2.0L Cannula 09/05 0000 Nasal 2.0L Cannula 09/04 2224 140/80 09/04 2222 97.9 82 22 140/80 94 Nasal 2.0L Cannula 09/04 2054 94 Nasal 2.0L Cannula 09/04 1735 Nasal 2.0L Cannula 09/04 1600 94 Nasal 2.0L Cannula 09/04 1510 97.7 80 30 148/80 92 Nasal 2.0L Cannula Intake & Output 09/05 1600 09/05 0800 09/05 0000 09/04 1600 09/04 0800 09/04 0000 Intake Total 800 1050 0 Output Total 400 Balance -676 142 0471 0 Intake, IV 250 Intake, Oral 800 800 0 Output, Urine 400 Patient 306 lb Weight Weight Bed scale Measurement Method Physical Exam: Well-developed, obese elderly male in no acute distress with nasal oxygen in place. Neck: No JVD, no bruits. Lungs: Few bibasilar crackles. Heart: S1, S2 with no murmur, gallop, or rub. PMI not well felt. Abdomen: Soft, nontender, positive bowel sounds. Extremities: 1-2+ edema. Current Medications: Current Medications Sig/Shavon Start time Last Medication Dose Route Stop Time Status Admin Acetaminophen 650 MG Q6P PRN 09/03 2315 AC PO Albuterol Sulfate 3 ML Q4-PRN PRN 09/04 1745 AC 09/04 INH 2051 Azithromycin 500 MG DAILY 09/04 1000 AC 09/05 Dextrose/Water 250 ML IV 0915 Digoxin 0.25 MG DAILY 09/04 1000 AC 09/05 PO 0915 Furosemide 20 MG Q12 09/05 2200 DC IV Furosemide 20 MG 0600,1700 09/05 1700 AC IV Furosemide 20 MG ONCE ONE 09/05 1115 DC IV 09/05 1116 Furosemide 20 MG DAILY 09/05 1000 DC 09/05 IV 0915 Furosemide 40 MG ONCE ONE 09/04 1445 DC 09/04 IV 09/04 1446 1537 Gabapentin 300 MG TID PRN 09/03 2330 AC 09/04 PO 2220 Insulin Aspart 0 TIDAC 09/04 0800 AC 09/05 SC 0811 Insulin Detemir 32 UNITS DAILY 09/04 1000 AC 09/05 SC 0810 Losartan Potassium 25 MG DAILY 09/04 1000 AC 09/05 PO 0915 Magnesium Oxide 400 MG ONE ONE 09/05 1100 DC PO 09/05 1101 Methylprednisolone 40 MG Q12 09/04 1000 DC 09/04 IV 0851 Metoprolol Succinate 100 MG QPM 09/04 0300 AC 09/04 PO 2224 Oxycodone/ 1 TAB Q6P PRN 09/03 2315 AC 09/04 Acetaminophen PO 2220 Prednisone 40 MG DAILY 09/05 1000 AC 09/05 PO 0915 Trazodone HCl 100 MG ONCE ONE 09/04 2030 DC 09/04 PO 09/04 203 2220 Warfarin Sodium 4 MG COUMADIN 1700 ONE 09/05 1700 AC PO 09/05 1701 Warfarin Sodium 2 MG COUMADIN 1700 ONE 09/04 1700 DC 09/04 PO 09/04 1701 1739 Results Last 48 Hrs of Labs/Mics: Laboratory Tests 09/05/17 1102: Digoxin Pending 09/05/17 0831: CBC w Diff NO MAN DIFF REQ, RBC 4.57 L, MCV 88.4, MCH 29.3, MCHC 33.2, RDW 14.4 , MPV 9.8, Gran % 79.8 H, Lymphocytes % 14.8 L, Monocytes % 4.7, Eosinophils % 0.3, Basophils % 0.4, Absolute Granulocytes 10.2 H, Absolute Lymphocytes 1.9, Absolute Monocytes 0.6, Absolute Eosinophils 0, Absolute Basophils 0 09/05/17 0715: Anion Gap 11, Estimated GFR > 60, BUN/Creatinine Ratio 36.0 H, TSH &T3 &Free T4 Intrp 0.858, PT 20.3 H, INR 1.95 H, Hepatitis C Antibody Pending 09/04/17 1555: HCV RNA (PCR) IUs/ml Pending, HCV RNA PCR log IUs/ml Pending 09/04/17 0741: Anion Gap 15, Estimated GFR > 60, BUN/Creatinine Ratio 32.0 H, Hemoglobin A1c 9.9 H, Magnesium 1.2 L, Troponin I < 0.01, PT 28.0 H, INR 2.69 H, CBC w Diff NO MAN DIFF REQ, RBC 4.61 L, MCV 88.3, MCH 29.5, MCHC 33.4, RDW 14.1, MPV 10.1, Gran % 85.9 H, Lymphocytes % 12.5 L, Monocytes % 1.3 L, Eosinophils % 0, Basophils % 0.3, Absolute Granulocytes 6.4, Absolute Lymphocytes 0.9 L, Absolute Monocytes 0.1, Absolute Eosinophils 0, Absolute Basophils 0 09/04/17 0600: Troponin I Cancelled 09/04/17 0020: PT 32.8 H, INR 3.16 H 09/03/17 1614: Anion Gap 11, Estimated GFR > 60, BUN/Creatinine Ratio 30.0 H, Glucose 244 H, Calcium 8.9, Total Bilirubin 0.7, AST 40, ALT 51, Alkaline Phosphatase 60, Troponin I < 0.01, Hlc-N-Uavjubspfia Pept 1360 H, Total Protein 6.8, Albumin 3.3 L, Globulin 3.5, Albumin/Globulin Ratio 0.9 L, CBC w Diff NO MAN DIFF REQ, RBC 4.28 L, MCV 88.2, MCH 29.5, MCHC 33.5, RDW 14.4, MPV 9.1, Gran % 62.5, Lymphocytes % 24.5, Monocytes % 9.6 H, Eosinophils % 2.9, Basophils % 0.5, Absolute Granulocytes 4.6, Absolute Lymphocytes 1.8, Absolute Monocytes 0.7 H, Absolute Eosinophils 0.2, Absolute Basophils 0 Microbiology 09/04 1535 NASOPHARYN: Influenza Virus A & B Rapid Smear - COMP 09/03 1553 NASOPHARYN: Influenza Virus A & B Rapid Smear - COMP Recent Imaging Studies: Echocardiogram 09/04/2017: 1. Normal EF of 60%. 2. Moderate left atrial enlargement. 3. Trace to mild mitral regurgitation. 4. Mild tricuspid regurgitation. 5. Moderate pulmonary hypertension. Assessment/Plan Assessment/Plan [id number] w/ hx obesity, fmr tob use, w/o CPAP 2/2 noncompliance, HTN, DM, & AF who was recommended evaluation at the ED after he was found to be significantly hypoxemic on ambulation in our office after c/o SOB/and intermittent CP over the past month and having a CXR performed that revealed nonspecific, diffusely prominent and reticulated interstitial lung markings with a broad differential diagnosis including interstitial lung disease, atypical infection, and lymphangitic spread of malignancy and a chest CT that also revealed multifocal interstitial changes, as well as, enlarged mediastinal and subcarinal lymph nodes, small right and trace left pleural effusions, & mild cardiomegaly. Along with his obvious pulmonary issues, he also appears to be clinically volume overloaded and could benefit from some diuresis. Recommendations: * Continue on gen med. * Daily weights and strict inputs/outputs. * Continue on IV furosemide 20 mg twice daily. * Follow-up on pulmonary recommendations. * DVT prophylaxis. Continue telemetry? Not applicable (On Gen Med 2 No.)
--- NOTE | 2017-09-05 15:45 | Patient Discharge Instructions ---
Discharge Instructions General Discharge Information You were seen/treated for: Acute hypoxic respiratory failure due to COPD exacerbation. Interstitial lung disease. Watch for these problems: Lightheadedness, shortness of breath, cough, fever, chills, sputum and chest pain. If you experience any of these symptoms please come to ED or call your primary care physician. Special Instructions: Follow-up with your primary care physician in one week. Follow-up with your environmental manager in 1 week. Discuss with environmental manager to adjust the lasix dose. Follow-up with your medical chief technician in 1 week. Patient would require an outpatient PET scan as he has significant lymphadenopathy and eventually might require bronchoscopy with endobronchial ultrasound-guided biopsy of his lymph nodes and probable biopsy of this lung depending on his pulmonary artery pressures from his echocardiogram. PT aware and will follow with his primary pulm md Dr Deshawn Arechiga We discontinued the metoprolol 200mg and continuing metoprolol 100mg at QPM. Please discuss with your environmental manager if he wants continue this combination or not. Check your INR and dose coumadin accordingly. Target INR is between 2-2.5. Patient was instructed to see his pcp if his INR remaied low. We are bridging him with lovenox for two day till his INR comes between 2-2.5. Diet Recommended Diet: Diabetic Activity Activity Self Limited: Yes Acute Coronary Syndrome Inclusion Criteria At DC or during hospital stay patient has or had the following: ACS DIAGNOSIS No Discharge Core Measures Meds if any: Prescribed or Continued at Discharge Meds if any: NOT Prescribed or Continued at Discharge Congestive Heart Failure Inclusion Criteria At DC or during hospital stay patient has or had the following: CHF DIAGNOSIS No Discharge Core Measures Meds if any: Prescribed or Continued at Discharge Meds if any: NOT Prescribed or Continued at Discharge Cerebrovascular accident Inclusion Criteria At DC or during hospital stay patient has or had the following: CVA/TIA Diagnosis No Discharge Core Measures Meds if any: Prescribed or Continued at Discharge Meds if any: NOT Prescribed or Continued at Discharge Venous thromboembolism Inclusion Criteria VTE Diagnosis No VTE Type NONE VTE Confirmed by (Test) NONE Discharge Core Measures - Per Current guidelines, there needs to be overlap - treatment for the first 5 days of Warfarin therapy. - If discharged on Warfarin prior to 5 days of - overlap therapy, the patient will need to be - assessed for post discharge needs including - *Post discharge parental anticoagulation - *Warfarin and/or parental anticoagulation education - *Follow up date to check INR post discharge At least 5 days overlap therapy as Inpatient No Meds if any: Prescribed or Continued at Discharge Note: Overlap Therapy is Warfarin and Anticoagulant Meds if any: NOT Prescribed or Continued at Discharge
[2017-09-05 15:52] VITALS: BP 160/88
[2017-09-05 22:12] VITALS: BP 160/80
[2017-09-06 06:58] VITALS: BP 132/74
[2017-09-06 09:07] LABS: PT 18.1 SEC (9.4-12.5)
[2017-09-06 09:08] LABS: ABSOLUTE BASOPHIL COUNT 0.1 /CUMM (0.0-0.2); ABSOLUTE EOSINOPHIL COUNT 0.1 /CUMM (0.0-0.7); ABSOLUTE LYMPH COUNT 2.5 /CUMM (1.2-3.4); ABSOLUTE MONOCYTE COUNT 0.8 /CUMM (0.10-0.60); BASOPHIL % 0.5 % (0.0-2.0); EOSINOPHIL % 0.9 % (0-5); GRANULOCYTE % 67.1 % (42.2-75.2); HEMATOCRIT 42.5 % (42-52); MEAN CORPUSCULAR HGB 29.2 PG (27.0-31.0); MEAN CORPUSCULAR HGB CONC 33.1 G/DL (33.0-37.0); MEAN CORPUSCULAR VOLUME 88.2 FL (80.0-94.0); MEAN PLATELET VOLUME 9.8 FL (7.4-10.4); RBC DISTRIBUTION WIDTH 14.3 % (11.5-14.5); RED BLOOD CELL CT 4.82 /CUMM (4.70-6.10); WHITE BLOOD CELL COUNT 10.4 /CUMM (4.8-10.8)
--- NOTE | 2017-09-06 10:17 | Discharge Summary ---
Hospital Course Allergies: Coded Allergies: No Known Allergies (09/03/17) Discharge Instructions Medications at Discharge Discharge Medications: Continue taking these medications: Metoprolol Succinate (Metoprolol Succinate) 200 MG TAB.ER.24H 1 Tablet ORAL Every Morning Qty = 90 Digoxin (Digoxin) 250 MCG TABLET 1 Tablet ORAL DAILY Qty = 90 Glipizide (Glipizide) 10 MG TABLET 1 Tablet ORAL Every Morning Qty = 90 Valsartan (Valsartan) 80 MG TABLET 1 Tablet ORAL DAILY Qty = 90 Metoprolol Succinate (Metoprolol Succinate) 100 MG TAB.ER.24H 1 Tablet ORAL Every night Qty = 60 Insulin Lispro (Humalog Kwikpen U-100) 100 UNIT/ML INSULN.PEN 9 Units Inject into fatty tissue BEFORE MEALS AND AT BEDTIME Qty = 15 Insulin Glargine,Hum.rec.anlog (Lantus Solostar) 100 UNIT/ML (3 ML) INSULN.PEN 32 Units Inject into fatty tissue Every Morning Qty = 15 Oxycodone HCl/Acetaminophen (Oxycodone-Acetaminophen 5-325) 5 MG-325 MG TABLET 1 Tablet ORAL THREE TIMES A DAY NEEDED as needed for PAIN Qty = 90 Trazodone HCl (Trazodone HCl) 100 MG TABLET 1 Tablet ORAL Every night Qty = 90 Warfarin Sodium (Jantoven) 7.5 MG TABLET 1 Tablet ORAL FRIDAY, FRIDAY AND FRIDAY Warfarin Sodium (Coumadin) 5 MG TABLET 1 Tablet ORAL [facility] Gabapentin (Gabapentin) 300 MG CAPSULE 1 Capsule ORAL THREE TIMES DAILY as needed for NERVE PAIN Qty = 90 Levocetirizine Dihydrochloride (Levocetirizine Dihydrochloride) 5 MG TABLET 1 Tablet ORAL Every night Qty = 90 Fluticasone/Vilanterol (Breo Ellipta 200-25 Mcg INH) 200 MCG-25 MCG/DOSE BLST.W.DEV 1 PUFF Inhale through mouth Every Morning Qty = 60 Ipratropium [place] (Ipratropium [place]) 21 MCG (0.03 %) SPRAY 2 Hibernia Both sides of nose As Directed as needed for NASAL CONGESTION Qty = 30 Saxagliptin (Onglyza) 5 MG TABLET 1 Tablet ORAL Every Morning Qty = 30 Multiple Vitamin (Multivitamins) 1 EACH TABLET 1 Tablet ORAL DAILY
[2017-09-06 10:23] LABS: PLATELET COUNT 87 /CUMM (130-400)
--- NOTE | 2017-09-06 13:29 | PN- Gen Med ---
Assessment/Plan Assessment: 72 YO M with PMH of LARISA on CPAP, DM and A. fib on warfarin presented with worsening SOB. Was found hypoxic in to 82%. admitted for acute hypoxic resp failure. Acute hypoxic respiratory failure in the setting of right sided heart failure and COPD exacerbation: - c/w IV lasix 20 bid, follow cardiology recs. I/O - wean o2 as tolerated - c/w prednisone and azithromtycin History of A. fib: -c/w coumadin - c/w metoprolol for rate control. DVT Prophylaxis: pt is on therapeutic dose of coumadin CODE STATUS: Full code Subjective Subjective: denies any new complains reports that his breathing is improving Objective Last 24 Hrs of Vital Signs/I&O Vital Signs Date Time Temp Pulse Resp B/P B/P Pulse O2 O2 Flow FiO2 Mean Ox Delivery Rate 09/06 0748 Nasal 2.0L Cannula 09/06 0745 72 132/74 09/06 0745 72 132/74 09/06 0658 97.8 71 20 132/74 94 09/06 0000 Nasal 2.0L Cannula 09/05 2212 97.8 81 20 160/80 95 Nasal 2.0L Cannula 09/05 2130 81 160/80 09/05 1600 94 Nasal 2.0L Cannula 09/05 1552 97.9 86 20 160/88 96 Nasal Cannula Intake & Output 09/06 1600 09/06 0800 09/06 0000 Intake Total 800 Output Total 600 Balance 200 Intake, Oral 800 Output, Urine 600 Physical Exam General Appearance: Alert, Oriented X3, Cooperative HEENT: Atraumatic, PERRLA, EOMI Neck: Supple, No JVD Cardiovascular: Regular Rate, Normal S1, Normal S2 Lungs: Clear to Auscultation (bibasilar crackles) Abdomen: Normal Bowel Sounds, Soft, No Tenderness Extremities: No Clubbing (+edema) Current Medications: Current Medications Sig/Shavon Start time Last Medication Dose Route Stop Time Status Admin Acetaminophen 650 MG Q6P PRN 09/03 2315 AC PO Albuterol Sulfate 3 ML Q4-PRN PRN 09/04 1745 AC 09/04 INH 2051 Azithromycin 500 MG DAILY 09/04 1000 AC 09/06 Dextrose/Water 250 ML IV 0904 Digoxin 0.25 MG DAILY 09/04 1000 AC 09/06 PO 0745 Furosemide 20 MG Q12 09/05 2200 DC IV Furosemide 20 MG 0600,1700 09/05 1700 AC 09/06 IV 0531 Gabapentin 300 MG TID PRN 09/03 2330 AC 09/05 PO 2204 Guaifenesin/ 10 ML Q6P PRN 09/05 1615 AC Dextromethorphan PO Guaifenesin/ 10 ML ONCE ONE 09/05 1400 DC 09/05 Dextromethorphan PO 09/05 1401 1418 Insulin Aspart 0 TIDAC 09/04 0800 AC 09/06 SC 1141 Insulin Detemir 32 UNITS DAILY 09/04 1000 AC 09/06 SC 0743 Losartan Potassium 25 MG DAILY 09/04 1000 AC 09/06 PO 0745 Magnesium Oxide 400 MG ONE ONE 09/05 1400 DC 09/05 PO 09/05 1401 1417 Metoprolol Succinate 100 MG QPM 09/04 0300 AC 09/05 PO 2130 Oxycodone/ 1 TAB Q6P PRN 09/03 2315 AC 09/06 Acetaminophen PO 1045 Prednisone 40 MG DAILY 09/05 1000 AC 09/06 PO 0745 Warfarin Sodium 4 MG COUMADIN 1700 ONE 09/06 1700 AC PO 09/06 1701 Warfarin Sodium 4 MG COUMADIN 1700 ONE 09/05 1700 DC 09/05 PO 09/05 1701 1707 Last 24 Hrs of Labs/Mics: Laboratory Tests 09/06/17 0655: Anion Gap 11, Estimated GFR > 60, BUN/Creatinine Ratio 28.3 H, Magnesium 1.4 L , PT 18.1 H, INR 1.73 H, CBC w Diff NO MAN DIFF REQ, RBC 4.82, MCV 88.2, MCH 29.2, MCHC 33.1, RDW 14.3, MPV 9.8, Gran % 67.1, Lymphocytes % 24.1, Monocytes % 7.4, Eosinophils % 0.9, Basophils % 0.5, Absolute Granulocytes 7.0 H, Absolute Lymphocytes 2.5, Absolute Monocytes 0.8 H, Absolute Eosinophils 0.1, Absolute Basophils 0.1 Microbiology 09/05 1350 LOWER RESP: Respiratory Culture - COLB 09/05 1349 LOWER RESP: Gram Stain - COLB
[2017-09-06 14:22] VITALS: BP 150/84
--- NOTE | 2017-09-06 15:08 | PN- Pulmonary ---
Subjective HPI/Critical Care Issues: Patient seen and examined this morning. He continues to be on oxygen and there is plan for him to possibly be discharged tomorrow. Objective Current Medications: Current Medications Sig/Shavon Start time Last Medication Dose Route Stop Time Status Admin Acetaminophen 650 MG Q6P PRN 09/03 2315 AC PO Albuterol Sulfate 3 ML Q4-PRN PRN 09/04 1745 AC 09/04 INH 2051 Azithromycin 500 MG DAILY 09/04 1000 AC 09/06 Dextrose/Water 250 ML IV 0904 Digoxin 0.25 MG DAILY 09/04 1000 AC 09/06 PO 0745 Furosemide 20 MG Q12 09/05 2200 DC IV Furosemide 20 MG 0600,1700 09/05 1700 AC 09/06 IV 0531 Gabapentin 300 MG TID PRN 09/03 2330 AC 09/05 PO 2204 Guaifenesin/ 10 ML Q6P PRN 09/05 1615 AC Dextromethorphan PO Insulin Aspart 0 TIDAC 09/04 0800 AC 09/06 SC 1141 Insulin Detemir 32 UNITS DAILY 09/04 1000 AC 09/06 SC 0743 Losartan Potassium 25 MG DAILY 09/04 1000 AC 09/06 PO 0745 Metoprolol Succinate 100 MG QPM 09/04 0300 AC 09/05 PO 2130 Oxycodone/ 1 TAB Q6P PRN 09/03 2315 AC 09/06 Acetaminophen PO 1045 Prednisone 40 MG DAILY 09/05 1000 AC 09/06 PO 0745 Warfarin Sodium 4 MG COUMADIN 1700 ONE 09/06 1700 AC PO 09/06 1701 Warfarin Sodium 4 MG COUMADIN 1700 ONE 09/05 1700 DC 09/05 PO 09/05 1701 1707 Vital Signs & I&O Last 24 Hrs of Vitals and I&O: Vital Signs Date Time Temp Pulse Resp B/P B/P Pulse O2 O2 Flow FiO2 Mean Ox Delivery Rate 09/06 1422 98.1 84 20 150/84 93 Nasal 1.0L Cannula 09/06 0748 Nasal 2.0L Cannula 09/06 0745 72 132/74 / 0745 72 132/74 / 0658 97.8 71 20 132/74 94 02/03 0000 Nasal 2.0L Cannula 09/05 2212 97.8 81 20 160/80 95 Nasal 2.0L Cannula 09/05 2130 81 160/80 09/05 1600 94 Nasal 2.0L Cannula 09/05 1552 97.9 86 20 160/88 96 Nasal Cannula Intake & Output 09/06 1600 09/06 0800 09/06 0000 Intake Total 1075 800 Output Total 250 600 Balance 825 200 Intake, IV 275 Intake, Oral 800 800 Output, Urine 250 600 Exam Other Physical Findings: Generally - Awake, alert and comfortable without distress Head and neck - normocephalic, atraumatic, EOMI grossly intact Cardiovascular - S1, S2, no murmurs, rubs or gallops Lungs -crackles at the bases Abdomen - Bowel sounds positive, soft, non-tender Extremities - edema Results Last 24 Hrs of Lab Results: Laboratory Tests 09/06/17 0655: Anion Gap 11, Estimated GFR > 60, BUN/Creatinine Ratio 28.3 H, Magnesium 1.4 L , PT 18.1 H, INR 1.73 H, CBC w Diff NO MAN DIFF REQ, RBC 4.82, MCV 88.2, MCH 29.2, MCHC 33.1, RDW 14.3, MPV 9.8, Gran % 67.1, Lymphocytes % 24.1, Monocytes % 7.4, Eosinophils % 0.9, Basophils % 0.5, Absolute Granulocytes 7.0 H, Absolute Lymphocytes 2.5, Absolute Monocytes 0.8 H, Absolute Eosinophils 0.1, Absolute Basophils 0.1 Impression/Plan Impression/Plan Impression/Plan: Impression 72-year-old man * Acute hypoxemic respiratory failure * Obstructive sleep apnea * A. fib * Mediastinal lymphadenopathy * COPD exacerbation Plan -Continue steroid taper as recommended -Will require follow-up with his primary auto research engineer -Continue anticoagulation -TRC/nebs -Assess ambulatory oxygen and determine if the oxygen is necessary prior to discharge -Follow up cardiology recommendations -Zithromax course was ordered DVT prophylaxis at all times
[2017-09-06 21:49] VITALS: BP 152/80
[2017-09-07 06:46] VITALS: BP 144/74
--- NOTE | 2017-09-07 07:32 | PN- Housestaff ---
[place] 09/07/17 0732: Subjective Follow-up For: Acute hypoxic respiratory failure due to COPD exacerbation Interstitial lung disease Subjective: No overnight events. Patient remained afebrile overnight. Seen and examined this morning. Patient is room air maintaining saturation 92%. He reported feeling tired. Patient denied any chest pain, short of breath, nausea, vomiting, chills, fever, abdominal pain dysuria. Review of Systems Constitutional: Reports: weakness. EENTM: Reports: no symptoms. Cardiovascular: Reports: no symptoms. Respiratory: Reports: no symptoms. Gastrointestinal: Reports: no symptoms. Genitourinary: Reports: no symptoms. Neurological/Psychological: Reports: no symptoms. Objective Last 24 Hrs of Vital Signs/I&O Vital Signs Date Time Temp Pulse Resp B/P B/P Pulse O2 O2 Flow FiO2 Mean Ox Delivery Rate 09/07 0820 96 144/74 09/07 0819 96 144/74 09/07 0646 97.8 96 18 144/74 92 / 0000 Room Air 09/06 2153 88 152/80 09/06 2149 97.4 88 18 152/80 92 Room Air 09/06 1422 98.1 84 20 150/84 93 Nasal 1.0L Cannula Intake & Output 09/07 1600 09/07 0800 09/07 0000 Intake Total 720 Output Total Balance 720 Intake, Oral 720 Number 0 Bowel Movements Physical Exam General Appearance: Alert, Oriented X3, Cooperative Skin Temp/Moisture Exam: Warm/Dry Sepsis Skin Exam (color): Normal for Ethnicity HEENT: Atraumatic, PERRLA, EOMI Neck: Supple Cardiovascular: Normal S1, Normal S2 Lungs: Clear to Auscultation Abdomen: Soft, No Tenderness Neurological: Normal Speech, Strength at 5/5 X4 Ext, Normal Tone, Sensation Intact Extremities: No Edema Assessment/Plan Assessment: 72 YO M with PMH of obstructive sleep apnea noncompliant on CPAP, DM and A. fib on warfarin presenting for worsening shortness of breath. The patient was at his copyist's office (Dr. Alejandro) when ambulating oxygen patient test was performed and he was satting at 82%. He was advised to get a chest x-ray and then went home. We will admit the patient on general medicine floor for the treatment of acute hypoxic respiratory failure due to COPD exacerbation. Acute hypoxic respiratory failure due to COPD exacerbation and right heart failure: -Patient reported desaturated to 82% on routine follow-up visit with cardiology. -TRC nebulization as needed -Continue prednisone 40mg -continue lasix 20mg iv. We will follow cardiology recommendations. -Sputum cultures -IV azithromycin for 5 days. Day 4 -We will continue Mucinex -We will follow pulmonology recommendations Hypomagnesemia:(improving) -we will replete magnesium. -we will follow the levels. History of Diabetes mellitus: -Accu-Cheks -Insulin NovoLog according to sliding scale -We will continue insulin Levemir 32 units daily History of A. fib: -We will continue warfarin according to INR to keep it 2-2.5 -We will continue metoprolol according to the recommendations of copyist. History of hypertension: We will continue metoprolol and losartan History of chronic pain: We'll continue his home medications. DVT Prophylaxis: Mechanical and patient is already on warfarin CODE STATUS: Full code Problem List: 1. Acute respiratory failure with hypoxia 2. COPD exacerbation Pain Ratin Pain Location: none Pain Goal: Remain pain free Pain Plan: pain pathway Tomorrow's Labs & Rationales: luciano Mitchell MD,B 09/07/17 1109: Attending MD Review Statement Attending Statement Attending MD Statement: examined this patient, discuss w/resident/PA/SHOVEL OPERATOR, agreed w/resident/PA/SHOVEL OPERATOR, discussed with case mgmt Attending Assessment/Plan: 72 YO M with PMH of LARISA on CPAP, DM and A. fib on warfarin presented with worsening SOB. Was found hypoxic in to 82%. admitted for acute hypoxic resp failure. pt is doing much better today and is off O2. breathing is improved Acute hypoxic respiratory failure in the setting of right sided heart failure and COPD exacerbation: - switch lasix to 40 qd. I/O - wean o2 as tolerated - c/w prednisone taper and azithromycin History of A. fib: c/w coumadin for AC. c/w metoprolol for rate control and dogoxin Dispo planning for today if does fine with ambulatory sats.
[2017-09-07 09:22] LABS: ABSOLUTE BASOPHIL COUNT 0.1 /CUMM (0.0-0.2); ABSOLUTE EOSINOPHIL COUNT 0.2 /CUMM (0.0-0.7); ABSOLUTE GRANULOCYTE CT 7.3 /CUMM (1.4-6.5); ABSOLUTE LYMPH COUNT 3.6 /CUMM (1.2-3.4); ABSOLUTE MONOCYTE COUNT 1.1 /CUMM (0.10-0.60); BASOPHIL % 0.6 % (0.0-2.0); EOSINOPHIL % 1.4 % (0-5); GRANULOCYTE % 59.9 % (42.2-75.2); MEAN PLATELET VOLUME 10.1 FL (7.4-10.4); RBC DISTRIBUTION WIDTH 13.9 % (11.5-14.5); RED BLOOD CELL CT 5.48 /CUMM (4.70-6.10); WHITE BLOOD CELL COUNT 12.2 /CUMM (4.8-10.8)
[2017-09-07 09:24] LABS: PT 17.9 SEC (9.4-12.5)
--- NOTE | 2017-09-07 09:50 | PN- Cardiology ---
Subjective Subjective: * Patient is lying supine without shortness of breath. No palpitations or lightheadedness. He does complain of palpitations. * Atrial fibrillation * INR is 1.71 * digoxin level is 1.1 Objective Vital Signs and I&Os Vital Signs Date Time Temp Pulse Resp B/P B/P Pulse O2 O2 Flow FiO2 Mean Ox Delivery Rate 09/07 819 96 144/74 09/07 0819 96 144/74 09/07 0646 97.8 96 18 144/74 92 09/07 0000 Room Air 09/06 2153 88 152/80 09/06 2149 97.4 88 18 152/80 92 Room Air 09/06 1422 98.1 84 20 150/84 93 Nasal 1.0L Cannula Intake & Output 09/07 1600 09/07 0800 09/07 0000 09/06 1600 09/06 0800 09/06 0000 Intake Total 720 1075 800 Output Total 250 600 Balance 720 825 200 Intake, IV 275 Intake, Oral 720 800 800 Number 0 Bowel Movements Output, Urine 250 600 Physical Exam: General: WD/overweight male in NAD; alert and oriented x 3 Neck: No JVD, no bruits Heart: irregularly irregular w/o murmur Lungs: clear bilaterally Abdomen: Soft, nontender, positive bowel sounds. Extremities: No edema Assessment/Plan Assessment/Plan * Atrial fibrillation is well controlled on current dose of Digoxin and Metoprolol. Keep INR in the 2-2.5 range. * replete magnesium * Breathing is improved. Change Lasix to 40mg PO daily. Continue telemetry? No
[2017-09-07 10:48] LABS: HEMATOCRIT 48.2 % (42-52)
[2017-09-07 10:50] LABS: PLATELET COUNT 132 /CUMM (130-400)
[2017-09-07] MEDS ORDERED: LASIX40 M1 PO (11:43)
[2017-09-07] MEDS ORDERED: PREDNISONE10 M2 PO (11:43)
--- NOTE | 2017-09-07 13:51 | PN- Pulmonary ---
Subjective HPI/Critical Care Issues: Patient seen and examined this morning. He is awaiting his M ventilatory oxygen check and discharge planning will continue. Objective Current Medications: Current Medications Sig/Shavon Start time Last Medication Dose Route Stop Time Status Admin Acetaminophen 650 MG Q6P PRN 09/03 2315 AC PO Albuterol Sulfate 3 ML Q4-PRN PRN 09/04 1745 AC 09/04 INH 2051 Azithromycin 500 MG DAILY 09/04 1000 AC 09/07 Dextrose/Water 250 ML IV 0820 Bisacodyl 5 MG DAILY 09/07 1015 AC PO Digoxin 0.25 MG DAILY 09/04 1000 AC 09/07 PO 0819 Furosemide 40 MG DAILY 09/07 1138 AC PO Furosemide 20 MG 0600,1700 09/05 1700 DC 09/07 IV 0518 Gabapentin 300 MG TID PRN 09/03 2330 AC 09/07 PO 1124 Guaifenesin/ 10 ML Q6P PRN 09/05 1615 AC Dextromethorphan PO Insulin Aspart 0 TIDAC 09/04 0800 AC 09/07 SC 1300 Insulin Detemir 32 UNITS DAILY 09/04 1000 AC 09/07 SC 0820 Losartan Potassium 25 MG DAILY 09/04 1000 AC 09/07 PO 0820 Magnesium Oxide 400 MG ONE ONE 09/07 1145 DC PO 09/07 1146 Metoprolol Succinate 100 MG QPM 09/04 0300 AC 09/06 PO 2153 Oxycodone/ 1 TAB Q6P PRN 09/03 2315 AC 09/07 Acetaminophen PO 1123 Polyethylene Glycol 17 GM DAILY 09/07 1015 AC PO Potassium Chloride 40 MEQ ONCE ONE 09/07 1245 DC 09/07 PO 09/07 1246 1300 Prednisone 40 MG DAILY 09/05 1000 AC 09/07 PO 0819 Warfarin Sodium 5 MG COUMADIN 1700 ONE 09/07 1700 AC PO 09/07 1701 Warfarin Sodium 4 MG COUMADIN 1700 ONE 09/06 1700 DC 09/06 PO 09/06 1701 1706 Vital Signs & I&O Last 24 Hrs of Vitals and I&O: Vital Signs Date Time Temp Pulse Resp B/P B/P Pulse O2 O2 Flow FiO2 Mean Ox Delivery Rate 09/07 0820 96 144/74 09/07 0819 96 144/74 09/07 0800 92 Room Air 09/07 0646 97.8 96 18 144/74 92 09/07 0000 Room Air 02/03 2153 88 152/80 09/06 2149 97.4 88 18 152/80 92 Room Air 09/06 1422 98.1 84 20 150/84 93 Nasal 1.0L Cannula Intake & Output 09/07 1600 09/07 0800 09/07 0000 Intake Total 720 Output Total Balance 720 Intake, Oral 720 Number 0 Bowel Movements Exam Other Physical Findings: Generally - Awake, alert and comfortable without distress Head and neck - normocephalic, atraumatic, EOMI grossly intact Cardiovascular - S1, S2, no murmurs, rubs or gallops Lungs -crackles at the bases Abdomen - Bowel sounds positive, soft, non-tender Extremities - edema Results Last 24 Hrs of Lab Results: Laboratory Tests 09/07/17 0825: Anion Gap 12, Estimated GFR > 60, BUN/Creatinine Ratio 26.7 H, Magnesium 1.4 L , PT 17.9 H, INR 1.71 H, CBC w Diff NO MAN DIFF REQ, RBC 5.48, MCV 88.0, MCH 29.0, MCHC 33.0, RDW 13.9, MPV 10.1, Gran % 59.9, Lymphocytes % 29.2, Monocytes % 8.9, Eosinophils % 1.4, Basophils % 0.6, Absolute Granulocytes 7.3 H, Absolute Lymphocytes 3.6 H, Absolute Monocytes 1.1 H, Absolute Eosinophils 0.2 , Absolute Basophils 0.1 Impression/Plan Impression/Plan Impression/Plan: Impression 72-year-old man * Acute hypoxemic respiratory failure * Obstructive sleep apnea * A. fib * Mediastinal lymphadenopathy * COPD exacerbation Plan -Continue steroid taper as recommended -Will require follow-up with his primary bag machine helper -Continue anticoagulation -TRC/nebs -Assess ambulatory oxygen and determine if the oxygen is necessary prior to discharge -Follow up cardiology recommendations -Zithromax course was ordered DC planning DVT prophylaxis at all times
[2017-09-07 14:24] VITALS: BP 144/96
[2017-09-07 14:49] VITALS: BP 132/88
[2017-09-07 22:23] VITALS: BP 138/88
[2017-09-08 05:50] VITALS: BP 138/86
--- NOTE | 2017-09-08 07:19 | PN- Housestaff ---
[facility] 09/08/17 0719: Subjective Follow-up For: Acute hypoxic respiratory failure due to COPD exacerbation Interstitial lung disease Subjective: No overnight events. Patient remained afebrile overnight. Seen and examined this morning. He denied any chest pain, short of breath at rest, nausea, vomiting, chills, fever, abdominal pain dysuria. Patient is using 2 L of oxygen maintaining saturation 96%. Patient couldn't leave yesterday because he desaturated to 87 on room air. We will ambulate him today and assess him again if he needs home oxygen. Review of Systems Constitutional: Reports: no symptoms. EENTM: Reports: no symptoms. Cardiovascular: Reports: no symptoms. Respiratory: Reports: no symptoms. Gastrointestinal: Reports: no symptoms. Genitourinary: Reports: no symptoms. Neurological/Psychological: Reports: no symptoms. Objective Last 24 Hrs of Vital Signs/I&O Vital Signs Date Time Temp Pulse Resp B/P B/P Pulse O2 O2 Flow FiO2 Mean Ox Delivery Rate 09/08 0854 90 138/86 09/08 0853 90 138/86 09/08 0550 97.8 91 20 138/86 96 Nasal 2.0L Cannula 09/08 0000 Nasal 2.0L Cannula 09/07 2223 97.7 98 18 138/88 95 Nasal 2.0L Cannula 09/07 2124 138/88 09/07 2000 95 Nasal 2.0L Cannula 09/07 1449 98.3 89 18 132/88 96 Room Air 09/07 1424 98.0 87 20 144/96 94 Nasal Cannula Physical Exam General Appearance: Alert, Oriented X3, Cooperative Skin Temp/Moisture Exam: Warm/Dry Sepsis Skin Exam (color): Normal for Ethnicity HEENT: Atraumatic, PERRLA, EOMI Neck: Supple Cardiovascular: Normal S1, Normal S2 Lungs: Clear to Auscultation Abdomen: Soft, No Tenderness Neurological: Normal Speech, Strength at 5/5 X4 Ext, Normal Tone, Sensation Intact Extremities: No Edema Assessment/Plan Assessment: 72 YO M with PMH of obstructive sleep apnea noncompliant on CPAP, DM and A. fib on warfarin presenting for worsening shortness of breath. The patient was at his director of religious life's office (Dr. Alejandro) when ambulating oxygen patient test was performed and he was satting at 82%. He was advised to get a chest x-ray and then went home. We will admit the patient on general medicine floor for the treatment of acute hypoxic respiratory failure due to COPD exacerbation. Acute hypoxic respiratory failure due to COPD exacerbation and right heart failure: -Patient reported desaturated to 82% on routine follow-up visit with cardiology. -TRC nebulization as needed -Continue prednisone 40mg -continue lasix 20mg iv. We will follow cardiology recommendations. -Sputum cultures -IV azithromycin for 5 days. Day 5 -We will continue Mucinex -We will follow pulmonology recommendations Hypomagnesemia:(improving) -we will replete magnesium. -we will follow the levels. History of Diabetes mellitus: -Accu-Cheks -Insulin NovoLog according to sliding scale -We will continue insulin Levemir 32 units daily History of A. fib: -We will continue warfarin according to INR to keep it 2-2.5 -We will continue metoprolol according to the recommendations of director of religious life. History of hypertension: We will continue metoprolol and losartan History of chronic pain: We'll continue his home medications. DVT Prophylaxis: Mechanical and patient is already on warfarin CODE STATUS: Full code Problem List: 1. Acute respiratory failure with hypoxia 2. COPD exacerbation Pain Ratin Pain Location: none Pain Goal: Remain pain free Pain Plan: pain pathway Tomorrow's Labs & Rationales: bep/inr Ghulam Huizar MD 09/08/17 1246: Attending MD Review Statement Attending Statement Attending MD Statement: examined this patient, discuss w/resident/PA/AUTO CLUTCH SPECIALIST, agreed w/resident/PA/AUTO CLUTCH SPECIALIST, reviewed EMR data (avail) Attending Assessment/Plan: 72M PMH paroxysmal atrial fibrillation on Coumadin, HTN, COPD, ILD presenting with dyspnea and hypoxia 82%, with CT showing evidence of ILD with mediastinal and hilar lymphadenopathy. Patient feels better today. His breathing has improved. He has no other complaints. Vitals stable. His leg edema appears much improved. Saturating 91 % on room air with ambulation today. 1. Acute exacerbation of interestitial lung disease 2. Acute hypoxemic respiratory failure 3. Moderate pulmonary hypertension Plan - Likely discharge today, will discuss with pulmonary - Continue Prednisone - PO Lasix - Cardiology and pulmonary outpatient follow up - Continue home medications
[2017-09-08 08:25] LABS: PT 17.8 SEC (9.4-12.5)
[2017-09-08 10:26] LABS: ABSOLUTE BASOPHIL COUNT 0.1 /CUMM (0.0-0.2); ABSOLUTE EOSINOPHIL COUNT 0.3 /CUMM (0.0-0.7); ABSOLUTE GRANULOCYTE CT 9.3 /CUMM (1.4-6.5); ABSOLUTE LYMPH COUNT 4.6 /CUMM (1.2-3.4); ABSOLUTE MONOCYTE COUNT 1.2 /CUMM (0.10-0.60); BASOPHIL % 0.8 % (0.0-2.0); EOSINOPHIL % 1.8 % (0-5); HEMATOCRIT 50.5 % (42-52); MEAN CORPUSCULAR HGB 29.1 PG (27.0-31.0); MEAN CORPUSCULAR VOLUME 88.3 FL (80.0-94.0); MEAN PLATELET VOLUME 10.9 FL (7.4-10.4); PLATELET COUNT 132 /CUMM (130-400); RBC DISTRIBUTION WIDTH 14.1 % (11.5-14.5); RED BLOOD CELL CT 5.72 /CUMM (4.70-6.10); WHITE BLOOD CELL COUNT 15.5 /CUMM (4.8-10.8)
[2017-09-08 11:40] LABS: GRANULOCYTE % 59.9 % (42.2-75.2)
--- NOTE | 2017-09-08 13:33 | PN- Pulmonary ---
Subjective HPI/Critical Care Issues: Much improved on room air 92 on excertion 92 on room air Objective Current Medications: Current Medications Sig/Shavon Start time Last Medication Dose Route Stop Time Status Admin Acetaminophen 650 MG Q6P PRN 09/03 2315 AC PO Albuterol Sulfate 3 ML Q4-PRN PRN 09/04 1745 AC 09/04 INH 2051 Azithromycin 500 MG DAILY 09/04 1000 DC 09/08 Dextrose/Water 250 ML IV 0851 Bisacodyl 5 MG DAILY 09/07 1015 AC 09/08 PO 1102 Digoxin 0.25 MG DAILY 09/04 1000 AC 09/08 PO 0854 Furosemide 40 MG DAILY 09/07 1138 AC 09/08 PO 1102 Gabapentin 300 MG TID PRN 09/03 2330 AC 09/08 PO 1102 Guaifenesin/ 10 ML Q6P PRN 09/05 1615 AC Dextromethorphan PO Insulin Aspart 0 TIDAC 09/04 0800 AC 09/08 SC 1153 Insulin Detemir 32 UNITS DAILY 09/04 1000 AC 09/08 SC 0804 Losartan Potassium 25 MG DAILY 09/04 1000 AC 09/08 PO 0853 Magnesium Oxide 400 MG ONE ONE 09/08 1330 DC PO 09/08 1331 Metoprolol Succinate 100 MG QPM 09/04 0300 AC 09/07 PO 2124 Oxycodone/ 1 TAB Q6P PRN 09/03 2315 AC 09/08 Acetaminophen PO 1104 Polyethylene Glycol 17 GM DAILY 09/07 1015 AC 09/08 PO 1103 Prednisone 40 MG DAILY 09/05 1000 AC 09/08 PO 0854 Warfarin Sodium 6 MG COUMADIN 1700 ONE 09/08 1700 AC PO 09/08 1701 Warfarin Sodium 5 MG COUMADIN 1700 ONE 09/07 1700 DC 09/07 PO 09/07 1701 1714 Vital Signs & I&O Last 24 Hrs of Vitals and I&O: Vital Signs Date Time Temp Pulse Resp B/P B/P Pulse O2 O2 Flow FiO2 Mean Ox Delivery Rate 09/08 1048 94 Nasal 2.0L Cannula 09/08 0854 90 138/86 09/08 0853 90 138/86 09/08 0800 93 Nasal 2.0L Cannula 09/08 0550 97.8 91 20 138/86 96 Nasal 2.0L Cannula 09/08 0000 Nasal 2.0L Cannula 02/04 2223 97.7 98 18 138/88 95 Nasal 2.0L Cannula 09/07 2124 138/88 09/07 1999 95 Nasal 2.0L Cannula 09/07 1449 98.3 89 18 132/88 96 Room Air 09/07 1424 98.0 87 20 144/96 94 Nasal Cannula Intake & Output 09/08 1600 02/05 0800 0205 0000 Intake Total Output Total 200 Balance -200 Output, Urine 200 Impression/Plan Impression/Plan Impression/Plan: Physical Exam General Appearance Alert, Oriented X3, Cooperative, No Acute Distress Neck no JVD Cardiovascular Regular Rate, Normal S1, Normal S2 Lungs basilar crackles Abdomen Normal Bowel Sounds, Soft, No Tenderness Extremities 2+ LE edema, L wrist wart removal x2 CT CHEST 09/03/17 PULMONARY ARTERIES: There are no central or segmental pulmonary emboli or thrombi. LUNG: There are patchy areas of opacity in the left upper and left lower lobes peripherally. Subpleural nodular opacities with increased interstitial markings are seen in the right upper lobe anteriorly and at the right base posteriorly. Tree-in-bud opacities are seen in the anterior right upper lobe. PLEURA: There are small right and trace left pleural effusions. There is some fluid within the left major fissure. MEDIASTINUM: The heart is mildly prominent. There is no pericardial effusion. There are AP window, paratracheal, para-aortic, azygoesophageal and subcarinal enlarged lymph nodes measuring up to 2.2 cm (image 31/69). The thyroid gland is not well assessed due to beam hardening artifact from adjacent contrast. The central airways are patent. The esophagus appears normal. No evidence of septal bowing or right heart strain. CHEST WALL/AXILLA: There are no chest wall masses. There is no axillary lymphadenopathy. UPPER ABDOMEN: The gallbladder is well-distended. The other upper abdominal structures are unremarkable. There is no reflux of contrast into the hepatic veins to suggest elevated right heart pressures. IMPRESSION: 1. There are no central segmental pulmonary emboli or thrombi. 2. There are multifocal interstitial changes, which may be consistent with interstitial lung disease, or inflammatory or infectious processes. These correspond to findings on the recent chest x-ray. There are small right and trace left pleural effusions. There is mild cardiomegaly. 3. There are enlarged mediastinal and subcarinal lymph nodes. VTE: Negative. IMPRESSION This is a gentleman with morbid obesity, previous diagnosis sleep apnea not on CPAP therapy, atrial fibrillation on anticoagulation, diabetes, morbid obesity, cirrhosis of the liver with previous alcohol abuse, previous hepatitis C infection, carpal tunnel syndrome, thrombocytopenia, previous history of significant smoking with previous CT scans being followed by Dr. Deshawn Estrada, with CT suggestive of nonspecific interstitial pneumonitis with previous workup for inflammatory and vasculitis negative, with recent rheumatology evaluation which did apparently suggest that he did not have any active inflammatory disease, previous pneumonia with left-sided pleural effusion which seems to have resolved now, is now admitted with shortness of breath. His issues include * Interstitial lung disease which appears to be nonspecific ILD which has been present and seems to be slowly progressing in the recent past year causing to have hypoxemia on exertion. At this time he may have a mild exacerbation of acute interstitial pneumonitis. WHich is better * Significant mediastinal and subcarinal lymphadenopathy which is new for him as his last CT did not suggest this. Rule out malignancy but however no major lung opacity or nodule noted in the CT scan. This may be a reactive lymphadenopathy * Clinical evidence suggestive of a mild congestive heart failure with elevated proBNP probably diastolic dysfunction, did respond to lasix * Previous CT scan suggestive of cirrhosis of the liver with portal hypertension with low platelets suggestive of that. CT scan of the chest did not reveal any significant ascites. * Bilateral pedal edema, clinical evidence suggestive of total body fluid overload may be related to right heart dysfunction from untreated sleep apnea and interstitial lung disease compounded by cirrhosis * No clinical evidence suggestive of significant COPD exacerbation. Patient has interstitial lung disease predominantly. He does have recurrent bronchitis RECOMMENDATION * PRednisone wean * PO lasix upon dc prob qod * Keep his INR at 2-2.5s * Patient would require an outpatient PET scan as he has significant lymphadenopathy and eventually might require bronchoscopy with endobronchial ultrasound-guided biopsy of his lymph nodes and probable biopsy of this lung depending on his pulmonary artery pressures from his echocardiogram. PT aware and will follow with his primary pulm md Dr Deshawn Flores
[2017-09-08 13:41] VITALS: BP 132/76
[2017-09-08] MEDS ORDERED: PREDNISONE10 M2 PO (13:59)
[2017-09-08 14:16] VITALS: BP 132/74
[2017-09-08] MEDS ORDERED: COUMADIN5 M2 PO (14:17)
[2017-09-08] MEDS ORDERED: LOVENOX40 MG/0.1 SC (14:39)
== END 2017-09-08 18:02 | DRG 196 ==
LOC: ERH 15:17 → 2NB 20:44 → ERHI 20:44 → 2NB 20:44 → ENRESERV 21:16 → ENTRNSPT 21:42 → EDTRNSPTSTS 21:49 → 2NB 21:57 → CMPTRNSPT 22:06 → ENPENDDIS 09-08 14:02 → 2NB 09-08 18:02
PROVIDERS: Emergency Medicine; Student in an Organized Health Care Education/Training Program
DX: J84.114 Acute interstitial pneumonitis (principal); J96.01 Acute respiratory failure with hypoxia; I50.33 Acute on chronic diastolic (congestive) heart failure; D69.6 Thrombocytopenia, unspecified; E11.8 Type 2 diabetes mellitus with unspecified complications; E66.01 Morbid (severe) obesity due to excess calories; Z68.41 Body mass index [BMI] 40.0-44.9, adult; J44.1 Chronic obstructive pulmonary disease with (acute) exacerbation; E87.70 Fluid overload, unspecified; I48.91 Unspecified atrial fibrillation; Z79.01 Long term (current) use of anticoagulants; Z79.4 Long term (current) use of insulin; Z79.84 Long term (current) use of oral hypoglycemic drugs; G47.33 Obstructive sleep apnea (adult) (pediatric); Z91.19 Patient's noncompliance with other medical treatment and regimen; Z87.891 Personal history of nicotine dependence; G89.29 Other chronic pain; K74.60 Unspecified cirrhosis of liver; B19.20 Unspecified viral hepatitis C without hepatic coma; R59.1 Generalized enlarged lymph nodes
CPT/HCPCS: 2NBSP; 36415; 71045; 71046; 82436; 86803; 87070; 87804; 87804-59; 93005; 93010; 93306; 96374; J0456; J1650; J1940; J2920; J2930; J7060; J7508; J7512

== ENCOUNTER 2018-01-10 09:09 | Inpatient (IN) | payer OTHER, MEDICARE ==
[~2018-01-10] VITALS: Ht 180.3 cm; Wt 130.3 kg
[~2018-01-10 09:09] MED LIST: BREO ELLIPTA 21 EACH INH; COUMADIN5 M2 PO; DIGOXIN250 MCG PO; GABAPENTIN300 M2 PO; GLIPIZIDE10 M2 PO; HUMALOG KW100 UNIT/1 SC; IPRATROPIUM BRO30 M2 NASB; JANTOVEN7.5 M1 PO; LANTUS SOL100 UNIT/1 SC; LASIX40 M1 PO; LEVOCETIRIZINE D5 M1 PO; LOVENOX40 MG/0.1 SC; METOPROLOL SUC100 M2 PO; METOPROLOL SUC200 M2 PO; MULTIVITAMINS1 EAC9 PO; ONGLYZA5 M1 PO; OXYCODONE-ACET1 EACH PO; PREDNISONE10 M2 PO; TRAZODONE HCL100 M1 PO; VALSARTAN80 M1 PO
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
--- NOTE | 2018-01-10 10:43 | RADIOLOGY REPORT ---
EXAMINATION: XR PORTABLE CHEST CLINICAL INFORMATION: Hemoptysis. Cough. Shortness of breath. COMPARISON: Chest radiograph done on 09/05/2017. TECHNIQUE: Portable frontal view of the chest was obtained. FINDINGS: Interval development of a rounded masslike opacity identified at right mid to lower lung field, may represent pneumonia or evolving neoplasm or hemorrhage. The remainder of the lung mauricio are clear. The cardiomediastinal silhouette is mildly enlarged, unchanged. No evidence of any pleural effusion. Visualized upper abdomen is unremarkable. IMPRESSION: Rounded masslike opacity at right mid to lower lung field, may represent pneumonia versus neoplasm or hemorrhage, new since 09/05/2017.
[2018-01-10 10:51] LABS: ABSOLUTE BASOPHIL COUNT 0 /CUMM (0.0-0.2); ABSOLUTE EOSINOPHIL COUNT 0.1 /CUMM (0.0-0.7); ABSOLUTE GRANULOCYTE CT 9.7 /CUMM (1.4-6.5); ABSOLUTE LYMPH COUNT 2.1 /CUMM (1.2-3.4); ABSOLUTE MONOCYTE COUNT 1.8 /CUMM (0.10-0.60); BASOPHIL % 0.3 % (0.0-2.0); EOSINOPHIL % 0.5 % (0-5); HEMATOCRIT 43.8 % (42-52); MEAN CORPUSCULAR HGB 29.9 PG (27.0-31.0); MEAN CORPUSCULAR HGB CONC 33.5 G/DL (33.0-37.0); MEAN CORPUSCULAR VOLUME 89.1 FL (80.0-94.0); MEAN PLATELET VOLUME 10.7 FL (7.4-10.4); PLATELET COUNT 110 /CUMM (130-400); RBC DISTRIBUTION WIDTH 14.1 % (11.5-14.5); RED BLOOD CELL CT 4.92 /CUMM (4.70-6.10); WHITE BLOOD CELL COUNT 13.6 /CUMM (4.8-10.8)
[2018-01-10 11:05] LABS: PT 22.3 SEC (9.4-12.5); PTT 34 SEC (25-37)
--- NOTE | 2018-01-10 13:30 | CT SCAN REPORT ---
EXAMINATION: CT ANGIOGRAM CHEST WITHOUT AND WITH CONTRAST (CT PULMONARY ANGIOGRAM FOR PE) CLINICAL INFORMATION: Chest pain, hemoptysis, abnormal chest x-ray. COMPARISON: Chest x-ray done earlier today. TECHNIQUE: Prior to contrast administration, noncontrast localization images were obtained. Subsequently, multidetector volumetric imaging was performed from the thoracic inlet to below the diaphragms following the administration of 82 mL Optiray 320 intravenous contrast. No contrast reaction reported. Sagittal, coronal, and MIP oblique sagittal reformatted images were obtained on the CT workstation, uploaded to PACS, and reviewed. Total exam dose-length product 580.02 mGy-cm. FINDINGS: QUALITY OF STUDY/CONTRAST BOLUS: Satisfactory PULMONARY ARTERIES: No central or segmental pulmonary emboli. THORACIC AORTA: No aneurysm or dissection. LUNG: Pleural-based dense irregular lobulated airspace opacification is noted at superior segment of right lower lobe of the lung, measures 7.8 x 5.5 cm at its maximum transverse by anteroposterior dimension. Differential includes infection versus neoplasm or pulmonary infarct. The remainder of the lung mauricio show nonspecific linear prominent interstitial lung markings, may represent interstitial edema, evolving fibrosis, interstitial spread of neoplasm and less likely to be interstitial infiltrate. Few subpleural cystic changes are also noted predominantly at both upper lobes. The tracheobronchial tree appeared patent. PLEURA: Small amount of right-sided pleural effusion is present, appears slightly loculated posteromedially at superior to mid hemithorax. MEDIASTINUM: Normal heart size. No pericardial effusion. There are multiple shotty middle mediastinal, prevascular, right paratracheal lymph nodes present. Few shotty right infrahilar lymph nodes are also noted. No evidence of septal bowing or right heart strain. CHEST WALL/AXILLA: No axillary or internal mammary lymphadenopathy. OSSEOUS STRUCTURES: No acute or suspicious osseous abnormality. UPPER ABDOMEN: Unremarkable. No reflux of contrast into the hepatic veins to suggest elevated right heart pressures. When compared to most recent prior CT of the chest done on 09/03/2017, the right lower lobar pleural-based mass appears new. The size of the right-sided pleural effusion appears to have mildly increased while the left-sided pleural effusion is no longer present. IMPRESSION: 1. No CT evidence of pulmonary embolism. 2. Interval development of pleural-based dense irregular lobulated airspace opacification is noted at superior segment of right lower lobe of the lung, may represent infection versus neoplasm or pulmonary infarct. 3. Persistent stable nonspecific diffuse linear interstitial prominence and nonspecific shotty mediastinal lymph nodes, similar to prior study dated 09/03/2017. 4. Mild interval increase in size of the right-sided pleural effusion and interval resolution of the left-sided pleural effusion and interval development of few shotty right infrahilar lymph nodes. VTE: Negative
[2018-01-10] MEDS ORDERED: COUMADIN7.5 M1 PO (13:41)
[2018-01-10] MEDS ORDERED: MAGNESIUM OXID420 M1 PO (13:41)
[2018-01-10] MEDS ORDERED: TAMSULOSIN HCL0.4 M1 PO (13:42)
[2018-01-10] MEDS ORDERED: ALPRAZOLAM0.5 M4 PO (13:42)
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
--- NOTE | 2018-01-10 15:40 | Admission Certification ---
Admission Certification Certification Statement - As attending physician, I certify that at the time of - admission, based on clinical presentation, severity of - symptoms, need for further diagnostic testing and - therapeutic interventions, and risk of adverse outcomes - without in-hospital treatment, in my clinical assessment, - this patient requires an acute hospital stay for a minimum - of two nights or longer. I have also considered psychsocial - factors such as support system, advanced age, financial - issues, cognitive issues, and failed out-patient treatments, - past re-admission history, safety of patient, and lack of - compliance as applicable. Specific rationale supporting this admission is: Hospitalization was required for management of patient's acute respiratory failure and pneumonia
[2018-01-10 17:15] VITALS: BP 142/76
[2018-01-10 22:14] VITALS: BP 128/78
[2018-01-11 06:55] VITALS: BP 130/70
[2018-01-11 08:03] LABS: ABSOLUTE BASOPHIL COUNT 0.1 /CUMM (0.0-0.2); ABSOLUTE EOSINOPHIL COUNT 0.2 /CUMM (0.0-0.7); ABSOLUTE GRANULOCYTE CT 9.8 /CUMM (1.4-6.5); ABSOLUTE LYMPH COUNT 1.8 /CUMM (1.2-3.4); ABSOLUTE MONOCYTE COUNT 1.6 /CUMM (0.10-0.60); BASOPHIL % 0.4 % (0.0-2.0); EOSINOPHIL % 1.3 % (0-5); GRANULOCYTE % 72.9 % (42.2-75.2); HEMATOCRIT 42.5 % (42-52); MEAN CORPUSCULAR HGB 29.7 PG (27.0-31.0); MEAN CORPUSCULAR HGB CONC 33.2 G/DL (33.0-37.0); MEAN CORPUSCULAR VOLUME 89.5 FL (80.0-94.0); MEAN PLATELET VOLUME 10.9 FL (7.4-10.4); PLATELET COUNT 120 /CUMM (130-400); RBC DISTRIBUTION WIDTH 14.1 % (11.5-14.5); RED BLOOD CELL CT 4.74 /CUMM (4.70-6.10); WHITE BLOOD CELL COUNT 13.5 /CUMM (4.8-10.8)
[2018-01-11 08:26] LABS: PT 22.5 SEC (9.4-12.5)
--- NOTE | 2018-01-11 08:56 | PN- Att Addend ---
Attending Addendum Attending Brief Note Patient seen and examined. No issues overnight reported by nursing staff. Remains afebrile and hemodynamically stable. Resting comfortably and not in any acute distress. No events on telemetry monitoring overnight. Reports feeling better compared to presentation. Reports less shortness of breath. Still complaining of cough. Noted to have low-grade fever of 100.1 overnight. Vital Signs Date Time Temp Pulse Resp B/P B/P Pulse O2 O2 Flow FiO2 Mean Ox Delivery Rate 01/11 0655 99.5 91 30 130/70 95 01/11 0038 96 Nasal 40% Cannula 01/10 2309 Nasal 40% Cannula 01/10 2258 93 Nasal 40% Cannula 01/10 2214 100.1 102 30 128/78 93 01/10 1900 Nasal 6.0L Cannula 01/10 1844 114 142/76 01/10 1833 94 Nasal 40% Cannula 01/10 1715 99.7 100 36 142/76 100 01/10 1700 95 Nasal 40% Cannula 01/10 1153 99.7 103 18 145/78 92 Nasal 4.0L Cannula 01/10 0940 90 Nasal 5.0L Cannula 01/10 0912 98.2 87 16 142/85 86 Room Air General appearance: Obese male and not in any acute distress. HEENT: Anicteric, no pallor, pupils equal and reactive. Neck: Supple with no jugular venous distention. Heart: S1-S2 irregular. Lungs: Diminished breath sounds bilateral lung bases. Right basal crepitus. Abdomen: Nondistended with normal bowel sounds. Soft, nontender with no palpable masses. Extremities: Trace pedal edema bilaterally. Skin: Intact Laboratory Tests 01/11/18 0634: Anion Gap 8, Estimated GFR > 60, BUN/Creatinine Ratio 20.0, PT 22.5 H, INR 2.05 H, CBC w Diff NO MAN DIFF REQ, RBC 4.74, MCV 89.5, MCH 29.7, MCHC 33.2, RDW 14.1, MPV 10.9 H, Gran % 72.9, Lymphocytes % 13.4 L, Monocytes % 12.0 H, Eosinophils % 1.3, Basophils % 0.4, Absolute Granulocytes 9.8 H, Absolute Lymphocytes 1.8, Absolute Monocytes 1.6 H, Absolute Eosinophils 0.2, Absolute Basophils 0.1 06/09/18 1835: Troponin I < 0.01 01/10/18 1815: Urinalysis LIGHT H, Urine Color YEL, Urine Clarity CLEAR, Urine pH 6.0, Ur Specific [place] 1.020, Urine Protein TRACE H, Urine Ketones NEG, Urine Nitrite POS H, Urine Bilirubin NEG, Urine Urobilinogen 0.2, Ur Leukocyte Esterase TRACE H, Ur Microscopic SEDIMENT EXAMINED, Urine RBC RARE, Urine WBC 25-50 H, Ur Epithelial Cells FEW, Urine Bacteria MANY H, Urine Hemoglobin TRACE-INTACT H, Urine Glucose 500 H 01/10/18 1020: Anion Gap 11, Estimated GFR > 60, BUN/Creatinine Ratio 25.0, Glucose 287 H, Calcium 9.2, Total Bilirubin 1.5 H, AST 34, ALT 41, Alkaline Phosphatase 82, Troponin I < 0.01, Total Protein 7.5, Albumin 3.6, Globulin 3.9, Albumin/ Globulin Ratio 0.9 L, PT 22.3 H, INR 2.03 H, APTT 34, D-Dimer High Sensitivty 476 H, CBC w Diff NO MAN DIFF REQ, RBC 4.92, MCV 89.1, MCH 29.9, MCHC 33.5, RDW 14.1, MPV 10.7 H, Gran % 71.0, Lymphocytes % 15.1 L, Monocytes % 13.1 H, Eosinophils % 0.5, Basophils % 0.3, Absolute Granulocytes 9.7 H, Absolute Lymphocytes 2.1, Absolute Monocytes 1.8 H, Absolute Eosinophils 0.1, Absolute Basophils 0 Microbiology 01/10 1817 URINE ROUT: Legionella Antigen - COMP 01/10 1817 URINE ROUT: Streptococcus pneumoniae Antigen (M - COMP 01/10 1657 LOWER RESP: Respiratory Culture - COLB 01/10 1657 LOWER RESP: Gram Stain - COLB 01/10 1657 BLOOD: Blood Culture - CAN Cancelled: Cancelled via OE: Per MD Decision 01/10 1657 BLOOD: Blood Culture - CAN Cancelled: Cancelled via OE: Per MD Decision 01/10 1653 LOWER RESP: Respiratory Culture - COLB 01/10 1653 LOWER RESP: Gram Stain - COLB 01/10 1550 BLOOD: Blood Culture - RECD 01/10 1546 BLOOD: Blood Culture - RECD Problems: 1. Acute hypoxic respiratory failure 2. Abnormal pulmonary imaging raising concern for right-sided pneumonia versus malignancy versus pulmonary infarct. 3. Right-sided pleural effusion 4. Obstructive sleep apnea. 5. Atrial fibrillation currently rate controlled. Plan: -Low-grade fever noted overnight. Continue antibiotic therapy. Follow sputum cultures if available. -Follow-up pulmonary consult regarding need for diagnostic thoracocentesis. -Wean off oxygen supplementation as tolerated. -Patient is rate controlled. Discontinue telemetry monitoring. -Follow-up Dopplers to rule out deep vein thrombosis. D-dimer is not significantly elevated.
--- NOTE | 2018-01-11 09:50 | PN- Housestaff ---
Subjective Follow-up For: Acute hypoxic respiratory failure Plueral effusion Tele-Events Since Last Visit: Afib rate controlled Subjective: Patient was seen and examined this morning, no overnight events reported by the patient or the nurses. No acute distress, low-grade fever with T-max 100.1. Patient is on 40% high flow mask saturating 95%. He reported improvement of his symptoms. No hemoptysis this morning. Chest pain improved. Review of Systems Constitutional: Reports: see HPI. Objective Last 24 Hrs of Vital Signs/I&O Vital Signs Date Time Temp Pulse Resp B/P B/P Pulse O2 O2 Flow FiO2 Mean Ox Delivery Rate 01/11 913 101 134/70 01/11 0913 101 134/70 01/11 0912 100 134/70 01/11 0904 93 Nasal 40% Cannula 01/11 0800 94 Nasal 40% Cannula 01/11 0655 99.5 91 30 130/70 95 01/11 0038 96 Nasal 40% Cannula 01/10 2309 Nasal 40% Cannula 01/10 2258 93 Nasal 40% Cannula 01/10 2214 100.1 102 30 128/78 93 01/10 1900 Nasal 6.0L Cannula 01/10 1844 114 142/76 01/10 1833 94 Nasal 40% Cannula 01/10 1715 99.7 100 36 142/76 100 01/10 1700 95 Nasal 40% Cannula 01/10 1153 99.7 103 18 145/78 92 Nasal 4.0L Cannula Intake & Output 01/11 1600 01/11 0800 01/11 0000 Intake Total 0 Output Total 775 2050 Balance -775 -2050 Intake, Oral 0 Output, Urine 775 2050 Patient 134.49 kg Weight Physical Exam General Appearance: Alert, Oriented X3, Cooperative, No Acute Distress Skin: No Rashes, No Breakdown, No Significant Lesion Skin Temp/Moisture Exam: Warm/Dry HEENT: Atraumatic, PERRLA, EOMI, Mucous Membr. moist/pink Neck: Supple Cardiovascular: Normal S1, Normal S2, No Murmurs, irregular irregular Lungs: bilateral diffuse fine crackles Abdomen: Normal Bowel Sounds, Soft, No Tenderness Extremities: No Clubbing, No Cyanosis, Normal Pulses, +1 bilateral pedal edema Assessment/Plan Assessment: Patient is 72 year old male with past medical history significant for diabetes mellitus, atrial fibrillation on warfarin, obstructive sleep apnea noncompliant with CPAP, right-sided heart failure, pulmonary hypertension, interstitial lung disease not on home oxygen who presented to ED with chief complain of cough associated with hemoptysis, right-sided chest pain and shortness of breath pulseox 71 at home. Problem list Cough with hemoptysis due to community-acquired infection versus neoplasm versus pulmonary infarction Atrial fibrillation with therapeutic INR Interstitial lung disease Acute hypoxic respiratory failure Diabetes mellitus Plan Follow-up sputum and blood culture Legionella and strep test urine antigen negative Age adjusted d-dimer negative for DVT Venous Doppler ultrasound negative for DVT Troponins and EKG 2 Ceftriaxone and azithromycin IV Pulmonary consultation appreciated will follow recommendation--patient may need thoracentesis diagnostic the future Cardiac consultation PENDING Will hold warfarin in setting of hemoptysis--please follow-up cardiology recommendation regarding when to start warfarin Accu-Chek readings run in high 200 will increase NovoLog sliding scale to high- dose Continue home medication DVT prophylaxis Alps Code full Problem List: 1. Hypoxia 2. Shortness of breath 3. Acute respiratory failure with hypoxia 4. Pneumonia 5. Hemoptysis Pain Ratin Pain Location: n/a Pain Goal: Pain 4 or less Pain Plan: see medication Tomorrow's Labs & Rationales: CBC, BEP, INR
--- NOTE | 2018-01-11 09:51 | ULTRASOUND REPORT ---
EXAMINATION: US TRIPLEX OF LOWER EXTREMITIES, BILATERAL CLINICAL INFORMATION: Bilateral lower extremity pain, swelling. COMPARISON: None TECHNIQUE: Color-flow triplex imaging with spectral analysis and compression Doppler were performed on the lower extremities. FINDINGS: Respiratory variation, normal compression and augmented flow are noted throughout the lower extremities. The visualized common femoral vein, superficial femoral vein, profunda femoral vein, popliteal vein and midcalf peroneal and posterior tibial venous segments show no evidence of deep venous thrombosis. There is no Gaxiola's cyst. IMPRESSION: No evidence of deep venous thrombosis involving the bilateral lower extremities.
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
[2018-01-11 13:50] VITALS: BP 138/60
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
[2018-01-11 22:00] VITALS: BP 152/78
[2018-01-12 07:02] VITALS: BP 142/78
--- NOTE | 2018-01-12 07:03 | PN- Housestaff ---
Prachi HICKEY,Sujata 01/12/18 0703: Subjective Follow-up For: Acute hypoxic respiratory failure Plueral effusion Tele-Events Since Last Visit: Judy gardner, heart rate 13273 Subjective: Patient was seen and examined at bedside, he denies any shortness of breath, still complaining of mild right-sided chest pain which increased with deep breathing and coughing. Waiting for the results of the lateral decubitus x-ray to decide on thoracocentesis, currently off anticoagulant but if he needs thoracocentesis will be switched to IV heparin drip for anticoagulation. The patient was initially on high flow oxygen, later on early this morning he was switched to nasal cannula and is saturating well. He reports that his sputum is yellowish now was no blood in Review of Systems Constitutional: Reports: see HPI. Objective Last 24 Hrs of Vital Signs/I&O Vital Signs Date Time Temp Pulse Resp B/P B/P Pulse O2 O2 Flow FiO2 Mean Ox Delivery Rate 01/12 0933 140/78 01/12 0933 140/78 01/12 0933 140/68 01/12 0800 94 Nasal 3.0L Cannula 01/12 0702 98.4 90 18 142/78 95 Nasal Cannula 01/12 0106 93 Nasal 40% Cannula 01/12 0000 93 Nasal 40% Cannula 01/11 2200 98.5 105 18 152/78 93 Nasal 40% Cannula 01/11 2055 105 152/78 01/11 1600 94 Nasal 40% Cannula 01/11 1350 98.8 90 20 138/60 96 Intake & Output 01/12 1600 01/12 0800 01/12 0000 Intake Total Output Total 900 775 Balance -900 -775 Number 1 Bowel Movements Output, Urine 900 775 Patient 299 lb Weight Weight Bed scale Measurement Method Physical Exam General Appearance: Alert, Oriented X3, Cooperative, No Acute Distress HEENT: Atraumatic, PERRLA, EOMI Neck: Supple, No JVD Cardiovascular: Normal S1, Normal S2 Lungs: decreased breath sounds on the right lower lung base Abdomen: Normal Bowel Sounds, Soft, No Tenderness Extremities: No Clubbing, No Cyanosis, No Edema Assessment/Plan Assessment: Patient is 72 year old male with past medical history significant for diabetes mellitus, atrial fibrillation on warfarin, obstructive sleep apnea noncompliant with CPAP, right-sided heart failure, pulmonary hypertension, interstitial lung disease not on home oxygen who presented to ED with chief complain of cough associated with hemoptysis, right-sided chest pain and shortness of breath pulseox 71 at home. Problem list Cough with hemoptysis due to community-acquired infection versus neoplasm versus pulmonary infarction Atrial fibrillation with therapeutic INR Interstitial lung disease Acute hypoxic respiratory failure Diabetes mellitus Plan Follow-up sputum and blood culture Follow-up on lateral decubitus chest x-ray Patient might need thoracocentesis, currently Coumadin held. If needed we will start him on IV heparin drip ID consult appreciated Follow-up cardiology and pulmonary recommendation Legionella and strep test urine antigen negative Age adjusted d-dimer negative for DVT Venous Doppler ultrasound negative for DVT Troponins and EKG 2 Ceftriaxone and azithromycin IV Accu-Chek readings run in high 200 will increase NovoLog sliding scale to high- dose Continue home medication DVT prophylaxis Alps Code full Problem List: 1. Pneumonia Pain Ratin Pain Location: N/A Pain Goal: Remain pain free Pain Plan: Pathway Tomorrow's Labs & Rationales: CBC BEp INR Gloria Willingham 01/12/18 1119: Attending MD Review Statement Attending Statement Attending MD Statement: examined this patient, discuss w/resident/PA/BOOKKEEPERS SUPERVISOR, agreed w/resident/PA/BOOKKEEPERS SUPERVISOR, discussed with family, reviewed EMR data (avail), discussed with nursing, discussed with case mgmt, reviewed images, amended to note Attending Assessment/Plan: 72 o/m with acute hypoxic respiratroy failure on admission is being treated for community acquired pnenumonia. Patient says he c/o pleuritic chest pain, Leukocytosis 13>>11, Chest xray with right sided small loculated collection. Plan is to obtain ID consult for appropriate antibiotic regimen. Obtain lateral/ Decubiti xray chest to evalaute/follow pleural effusion. Continue follow pulmonary recommendations. ILD cont supportive therapy Lymphadenopathy might benefit from EUS in future. Outpatient PET scan once infection resolves. afib on anticoagulation, held warfarin INR 1.6 today, migh transtion to heparin iv in case he needs Thoracocentesis. rest cont current care plan of care d/wed patient bedside, gi/dvt prophyalxis full code.
[2018-01-12 07:54] LABS: ABSOLUTE BASOPHIL COUNT 0 /CUMM (0.0-0.2); ABSOLUTE EOSINOPHIL COUNT 0.4 /CUMM (0.0-0.7); ABSOLUTE GRANULOCYTE CT 8.2 /CUMM (1.4-6.5); ABSOLUTE LYMPH COUNT 1.7 /CUMM (1.2-3.4); ABSOLUTE MONOCYTE COUNT 1.5 /CUMM (0.10-0.60); BASOPHIL % 0.2 % (0.0-2.0); EOSINOPHIL % 3.1 % (0-5); GRANULOCYTE % 69.2 % (42.2-75.2); HEMATOCRIT 42.9 % (42-52); MEAN CORPUSCULAR HGB 30.1 PG (27.0-31.0); MEAN CORPUSCULAR HGB CONC 33.8 G/DL (33.0-37.0); MEAN PLATELET VOLUME 10.3 FL (7.4-10.4); PLATELET COUNT 137 /CUMM (130-400); RBC DISTRIBUTION WIDTH 14.1 % (11.5-14.5); RED BLOOD CELL CT 4.82 /CUMM (4.70-6.10); WHITE BLOOD CELL COUNT 11.8 /CUMM (4.8-10.8)
[2018-01-12 08:17] LABS: PT 18.1 SEC (9.4-12.5)
--- NOTE | 2018-01-12 10:45 | PN- Pulmonary ---
Subjective HPI/Critical Care Issues: Little better Hemoptysis improved No further fever or chills Sputum pending Objective Current Medications: Current Medications Sig/Shavon Start time Last Medication Dose Route Stop Time Status Admin Acetaminophen 650 MG .STK-MED ONE 01/12 2104 DC PO 01/11 2105 Acetaminophen 650 MG Q6P PRN 01/10 1700 AC 01/12 PO 0633 Albuterol Sulfate 3 ML Q4H PRN 01/10 1700 AC INH Azithromycin 500 MG DAILY@1600 01/11 1600 AC 01/11 Sodium Chloride 250 ML IV 1520 Ceftriaxone Sodium 1,000 MG DAILY@1600 01/11 1600 AC 01/11 IV 1520 Digoxin 0.25 MG DAILY 01/11 09 AC 01/12 PO 0933 Furosemide 40 MG DAILY 01/11 900 AC 01/12 PO 0933 Gabapentin 300 MG TID PRN 01/10 1700 AC 01/10 PO 1845 Insulin Aspart 0 TIDAC 01/11 1700 AC 01/12 SC 0933 Insulin Aspart 0 TIDAC 01/10 1700 DC 01/11 SC 0914 Insulin Detemir 32 UNITS DAILY 01/11 09 AC 01/12 SC 0935 Losartan Potassium 25 MG DAILY 01/11 09 AC 01/12 PO 0933 Magnesium Oxide 400 MG BID 01/12 06 AC 01/12 PO 0626 Metoprolol Succinate 150 MG QPM 01/12 2100 AC PO Metoprolol Succinate 100 MG QPM 01/10 2100 DC 01/11 PO 205 Tamsulosin HCl 0.4 MG DAILY 01/11 900 AC 01/12 PO 0933 Trazodone HCl 100 MG .STK-MED ONE 01/12 2104 DC PO 01/11 2105 Trazodone HCl 100 MG ONCE ONE 01/11 2100 DC 01/11 PO 01/11 Warfarin Sodium 5 MG COUMADIN 1700 ONE 01/11 1700 DC 01/11 PO 01/11 [id number] Vital Signs & I&O Last 24 Hrs of Vitals and I&O: Vital Signs Date Time Temp Pulse Resp B/P B/P Pulse O2 O2 Flow FiO2 Mean Ox Delivery Rate 01/12 933 140/78 01/12 933 140/78 01/12 0933 140/68 01/12 0800 94 Nasal 3.0L Cannula 01/12 07 98.4 90 18 142/78 95 Nasal Cannula 01/12 0106 93 Nasal 40% Cannula 01/12 0000 93 Nasal 40% Cannula 01/11 2200 98.5 105 18 152/78 93 Nasal 40% Cannula 01/11 2055 105 152/78 01/11 1600 94 Nasal 40% Cannula 01/11 1350 98.8 90 20 138/60 96 Intake & Output 01/12 1600 01/12 0800 01/12 0000 Intake Total Output Total 900 775 Balance -900 -775 Number 1 Bowel Movements Output, Urine 900 775 Patient 299 lb Weight Weight Bed scale Measurement Method Laboratory Tests 01/12 01/11 0632 0634 Chemistry Sodium (137 - 145 mmol/L) 136 L 133 L Potassium (3.5 - 5.1 mmol/L) 4.1 4.2 Chloride (98 - 107 mmol/L) 98 95 L Carbon Dioxide (22 - 30 mmol/L) 29 30 Anion Gap (5 - 16) 9 8 BUN (9 - 20 mg/dL) 10 10 Creatinine (0.7 - 1.2 mg/dL) 0.5 L 0.5 L Estimated GFR (>60 ml/min) > 60 > 60 BUN/Creatinine Ratio (7 - 25 %) 20.0 20.0 Magnesium (1.6 - 2.3 mg/dL) 1.4 L Coagulation PT (9.4 - 12.5 SEC) 18.1 H 22.5 H INR (0.90 - 1.17) 1.65 H 2.05 H Hematology CBC w Diff NO MAN DIFF REQ NO MAN DIFF REQ WBC (4.8 - 10.8 /CUMM) 11.8 H 13.5 H RBC (4.70 - 6.10 /CUMM) 4.82 4.74 Hgb (14.0 - 18.0 G/DL) 14.5 14.1 Hct (42 - 52 %) 42.9 42.5 MCV (80.0 - 94.0 FL) 89.0 89.5 MCH (27.0 - 31.0 PG) 30.1 29.7 MCHC (33.0 - 37.0 G/DL) 33.8 33.2 RDW (11.5 - 14.5 %) 14.1 14.1 Plt Count (130 - 400 /CUMM) 137 120 L MPV (7.4 - 10.4 FL) 10.3 10.9 H Gran % (42.2 - 75.2 %) 69.2 72.9 Lymphocytes % (20.5 - 51.1 %) 14.7 L 13.4 L Monocytes % (1.7 - 9.3 %) 12.8 H 12.0 H Eosinophils % (0 - 5 %) 3.1 1.3 Basophils % (0.0 - 2.0 %) 0.2 0.4 Absolute Granulocytes (1.4 - 6.5 /CUMM) 8.2 H 9.8 H Absolute Lymphocytes (1.2 - 3.4 /CUMM) 1.7 1.8 Absolute Monocytes (0.10 - 0.60 /CUMM) 1.5 H 1.6 H Absolute Eosinophils (0.0 - 0.7 /CUMM) 0.4 0.2 Absolute Basophils (0.0 - 0.2 /CUMM) 0 0.1 Toxicology Digoxin (0.8 - 2.0 ng/mL) < 0.4 L 01/10 01/10 1835 1815 Chemistry Troponin I (<0.11 ng/ml) < 0.01 Urines Urinalysis LIGHT H Urine Color (YEL,AMB,STR) YEL Urine Clarity (CLEAR) CLEAR Urine pH (5.0 - 8.0) 6.0 Ur Specific [place] (1.001 - 1.035) 1.020 Urine Protein (NEG,<30 MG/DL) TRACE H Urine Ketones (NEG) NEG Urine Nitrite (NEG) POS H Urine Bilirubin (NEG) NEG Urine Urobilinogen (0.1 - 1.0 EU/dl) 0.2 Ur Leukocyte Esterase (NEG) TRACE H Ur Microscopic SEDIMENT EXAMINED Urine RBC (0 - 5 /HPF) RARE Urine WBC (0 - 2 /HPF) 25-50 H Ur Epithelial Cells (NONE,FEW) FEW Urine Bacteria (NEG/NONE) MANY H Urine Hemoglobin (NEG) TRACE-INTACT H Urine Glucose (N MG/DL) 500 H Microbiology Date/Time Procedure - Status Source Growth 01/10 1817 Legionella Antigen - COMP URINE ROUT 01/10 1817 Streptococcus pneumoniae Antigen (M - COMP URINE ROUT 01/10 1657 Respiratory Culture - CAN LOWER RESP Cancelled: SPECIMEN NOT RECEIVED IN LABORATORY 01/10 1657 Gram Stain - CAN LOWER RESP Cancelled: SPECIMEN NOT RECEIVED IN LABORATORY 01/10 1657 Blood Culture - CAN BLOOD Cancelled: Cancelled via OE: Per MD Decision 01/10 1657 Blood Culture - CAN BLOOD Cancelled: Cancelled via OE: Per Decision 01/10 1653 Respiratory Culture - CAN LOWER RESP Cancelled: DUPLICATE 01/10 1653 Gram Stain - CAN LOWER RESP Cancelled: DUPLICATE 01/10 1550 Blood Culture - RES BLOOD 01/10 1546 Blood Culture - RES BLOOD Impression/Plan Impression/Plan Impression/Plan: CT IN 08/21 IMPRESSION: 1. There are no central segmental pulmonary emboli or thrombi. 2. There are multifocal interstitial changes, which may be consistent with interstitial lung disease, or inflammatory or infectious processes. These correspond to findings on the recent chest x-ray. There are small right and trace left pleural effusions. There is mild cardiomegaly. 3. There are enlarged mediastinal and subcarinal lymph nodes. VTE: Negative. DICTATED BY: Sylvester Cline MD DATE/TIME DICTATED:09/03/171804 PATIENT: ELAINE DELACRUZ PRESENT AGE: 72 PATIENT ACCOUNT NO: [id number] : 45 LOCATION: [facility] ORDERING PHYSICIAN: Elaine Reyes MD SERVICE DATE: 01/10/18 EXAM TYPE: CAT - CTA CHEST-PULMONARY EMBOLISM PULMONARY ARTERIES: No central or segmental pulmonary emboli. THORACIC AORTA: No aneurysm or dissection. LUNG: Pleural-based dense irregular lobulated airspace opacification is noted at superior segment of right lower lobe of the lung, measures 7.8 x 5.5 cm at its maximum transverse by anteroposterior dimension. Differential includes infection versus neoplasm or pulmonary infarct. The remainder of the lung mauricio show nonspecific linear prominent interstitial lung markings, may represent interstitial edema, evolving fibrosis, interstitial spread of neoplasm and less likely to be interstitial infiltrate. Few subpleural cystic changes are also noted predominantly at both upper lobes. The tracheobronchial tree appeared patent. PLEURA: Small amount of right-sided pleural effusion is present, appears slightly loculated posteromedially at superior to mid hemithorax. MEDIASTINUM: Normal heart size. No pericardial effusion. There are multiple shotty middle mediastinal, prevascular, right paratracheal lymph nodes present. Few shotty right infrahilar lymph nodes are also noted. No evidence of septal bowing or right heart strain. CHEST WALL/AXILLA: No axillary or internal mammary lymphadenopathy. OSSEOUS STRUCTURES: No acute or suspicious osseous abnormality. UPPER ABDOMEN: Unremarkable. No reflux of contrast into the hepatic veins to suggest elevated right heart pressures. When compared to most recent prior CT of the chest done on 09/03/2017, the right lower lobar pleural-based mass appears new. The size of the right-sided pleural effusion appears to have mildly increased while the left-sided pleural effusion is no longer present. IMPRESSION: 1. No CT evidence of pulmonary embolism. 2. Interval development of pleural-based dense irregular lobulated airspace opacification is noted at superior segment of right lower lobe of the lung, may represent infection versus neoplasm or pulmonary infarct. 3. Persistent stable nonspecific diffuse linear interstitial prominence and nonspecific shotty mediastinal lymph nodes, similar to prior study dated 09/03/2017. 4. Mild interval increase in size of the right-sided pleural effusion and interval resolution of the left-sided pleural effusion and interval development of few shotty right infrahilar lymph nodes. VTE: Negative DATE/TIME DICTATED:01/10/18 / 2 General Appearance: Alert, Oriented X3, Cooperative, No Acute Distress Skin: No Rashes, No Breakdown, No Significant Lesion Skin Temp/Moisture Exam: Warm/Dry HEENT: Atraumatic, PERRLA, EOMI, Mucous Membr. moist/pink Neck: Supple Cardiovascular: Normal S1, Normal S2, No Murmurs, irregular irregular Lungs: bilateral diffuse fine crackles Abdomen: Normal Bowel Sounds, Soft, No Tenderness Extremities: No Clubbing, No Cyanosis, Normal Pulses, +1 bilateral pedal edema MPRESSION This is a gentleman with morbid obesity, previous diagnosis sleep apnea not on CPAP therapy, atrial fibrillation on anticoagulation, diabetes, morbid obesity, cirrhosis of the liver with previous alcohol abuse, previous hepatitis C infection, carpal tunnel syndrome, thrombocytopenia, previous history of significant smoking with previous CT scans being followed by Dr. Deshawn Estrada, with CT suggestive of nonspecific interstitial pneumonitis with previous workup for inflammatory and vasculitis negative, rheum work up neg now with His issues include * New rt lower lobe infiltrate consistant with rt lower lobe pneumona clinically , rt effusion small needs eval if worse * Interstitial lung disease which appears to be nonspecific ILD which has been present and seems to be slowly progressing in the recent past year causing to have hypoxemia on exertion. * Significant mediastinal and subcarinal lymphadenopathy, needs ebus * Previous diastolic dysfunction, afib on warfarin * Sig pulm htn due ot diastolic dz and prob untreated bernice * Previous CT scan suggestive of cirrhosis of the liver with portal hypertension * Bilateral pedal edema, * No clinical evidence suggestive of significant COPD exacerbation. Patient has interstitial lung disease predominantly. He does have recurrent bronchitis in the past RECOMMENDATION * COnt abx * sputum culture * Hold warfarin and transition to heparin if cardio wishes to cont anticoag * Check rt lateral decub to rule out effusion which may need to be tapped * Patient would require an outpatient PET scan as he has significant lymphadenopathy and eventually might require bronchoscopy with endobronchial ultrasound-guided biopsy of his lymph nodes and probable biopsy of this lung depending on his pulmonary artery pressures from his echocardiogram
--- NOTE | 2018-01-12 11:50 | PN- Cardiology ---
Subjective Subjective: Breathing a little better. Remains on oxygen. In atrial fibrillation on telemetry with ventricular response varying from 88- 116 bpm. Objective Vital Signs and I&Os Vital Signs Date Time Temp Pulse Resp B/P B/P Pulse O2 O2 Flow FiO2 Mean Ox Delivery Rate 01/12 0933 140/78 01/12 0933 140/78 01/12 0933 140/68 01/12 0800 94 Nasal 3.0L Cannula 01/12 0702 98.4 90 18 142/78 95 Nasal Cannula 01/12 0106 93 Nasal 40% Cannula 01/12 0000 93 Nasal 40% Cannula 01/11 2200 98.5 105 18 152/78 93 Nasal 40% Cannula 01/11 2055 105 152/78 01/11 1600 94 Nasal 40% Cannula 01/11 1350 98.8 90 20 138/60 96 Intake & Output 01/12 1600 01/12 0800 01/12 0000 01/11 1600 01/11 0800 01/11 0000 Intake Total 400 0 Output Total 900 775 994 438 6964 Balance -900 -775 -550 -775 Intake, Oral 400 0 Number 1 2 Bowel Movements Output, Urine 900 775 [phone] Patient 299 lb 297 lb Weight Weight Bed scale Measurement Method Physical Exam: Well-developed, morbidly obese elderly male in mild respiratory distress with oxygen in place. Vital signs: See above. HEENT: Normocephalic, atraumatic, EOMI, moist mucous membranes. Neck: No JVD, no bruits. Lungs: Decreased breath sounds bilaterally, especially at the bases. Heart: S1, S2 (both distant) and irregularly, irregular. Abdomen: Soft, nontender, positive bowel sounds. Extremities: No edema. Assessment/Plan Assessment/Plan [id number] w/ hx of obesity, fmr tob use, LARISA w/o CPAP 2/2 noncompliance, ILD, HTN, DM, & permanent AF on AC w/ beta yeni/digoxin for rate control who presented to the ED 01/10/2018 w/ a 3 day c/o progressive SOB, bld-tinged sputum, & worsening O2 sats that dipped into the low 70% range on Friday, 04/2018 a.m. w/ assoc initial constant R sided back pain that subsequently radiated around to his R chest that was also constant, but had exacerbations w/ positional change. He did not note any exacerbation w/ deep inspiration. Acute respiratory failure likely 2/2 community-acquired PNA w/ a pleuritic component possibly 2/2 an empyema, parapneumonic effusion, malignancy, etc. The ventricular response to his age fibrillation is a little rapid, despite him being on metoprolol succinate 100 mg daily and digoxin 0.25 mg daily. Recommendations: * Continue on telemetry. * Diltiazem 30 mg 3 times daily to help with the ventricular response. * Decubitus x-ray as per pulmonary to see if there is enough pleural effusion to tap and if there is hold warfarin anticoagulation and transition to IV heparin which can be discontinued a few hours prior to thoracentesis. * Consider echocardiogram to reassess LV/RV function, PA pressure, etc. * Outpatient PET scan as per pulmonary medicine. * DVT prophylaxis. Continue telemetry? Yes
--- NOTE | 2018-01-12 13:42 | PN- Student ---
Subjective Subjective: Student H&P HPI: Patient is a 72 YOM who presented to the ER yesterday for a cough with hemoptysis, shortness of breath, and chest pain. The pain had an abrupt onset 3 days prior, was initially severe, and is now moderate. Patient describes a sharp pain that was initially felt on the posterior wall of his right chest, but which has since moved to the anterior wall of his right chest. He denies radiation into his arms or neck. It is made worse by taking deep breaths. The cough initially contained roselyn blood, but now has a more mucousy/white character. Patient measured his SpO2 at home to be at 71%. He states that he has recently gotten back from a trip to [place] where he visited [facility]; return trip involved a [address] ride. The symptoms began the same day as he went to the [facility], which was also the day of the trip home. He had one episode of night sweats that evening, but he otherwise denies F/C/N/V. PMH: DM, AFIB w/ Warfarin, Right HF, LARISA w/ CPAP, Pulmonary HTN, Interstitial lung disease, remote alcohol dependence, and anxiety. Last colonoscopy 2 years ago with no findings. ROS: CONST - Positive for 11 lb weight gain over two months and generalized weakness of 1 month duration. Else as per HPI. HEENT - denies headache, sore throat, or vision changes CHEST - as per HPI ABDOM - denies pain, N/V, diarrhea, or other changes in bowel habits MSK - Positive for knee pain and cramping in hands NEURO - Positive for memory difficulties over the past year and numbness/ tingling/pain in feet Home Meds: Alprazolam Digoxin Fluticasone/Vilanterol Furosemide Gabapentin Glipizide Insulin Glargine Insulin Lispro Ipratropium [place] Levocetirizine Dihydrochloride Magnesium Oxide Metoprolol Succinate Oxycodone HCl/Acetaminophen Saxagliptin Tamsulosin HCl Trazodone HCl Valsartan Warfarin Sodium Allergies: NKDA FH: Father - Pacreatic cancer Paternal Uncle - Pacreatic Cancer Brother - pneumoconiosis with lung resection, heart attack SH: Denies current alcohol, tobacco, or illicit drug use Lives with Objective Objective: On physical exam, patient is resting comfortably in bed. He is alert and oriented speaking in full sentances. His skin is PWD. Neck is supple and free of lymphadenopathy. There are no supraclavicular lymph nodes. Chest has diminished lung sounds and dullness to percussion at the posterior lower right side. Patient denies tenderness on the anterior right side, but does flinch slightly with palpation. Heart has an irregular rythym with normal S1/S2 and no MRG. Abdomen is distended and ascitic but soft and non-tender with no palpable masses. Liver is palpable 1cm below the right costal margin. Evidence of grady and skin grafts on right arm/hand. Legs have trace edema with palpable and equal DP/PT pulses. There is no evidence of bruising or skin lesions. Laboratory Workup A D-dimer was slightly elevated and was followed by a CTA, which showed no evidence of a PE but did show an opacity in the right posterior lung midway up and a loculated pleural effusion on the right side, as well as some shotty sara- hilar lymph nodes. Lateral decubitus x-ray further confirmed pleural effusion on the right. - Serial troponins and EKG were negative. - White count was elevated at 13.5 initially and is down to 11.8 today - His diabetes appears poorly controlled with a random glucose of 287. - T-bili was high at 1.5, and albumin:globulin ratio was low. Other liver tests were normal. - Urinalysis showed trace proteins, N+, LE+, WBC, glucose, and many bacteria - Digoxin levels were low Laboratory Tests 01/12 01/11 0632 0634 Chemistry Sodium (137 - 145 mmol/L) 136 L 133 L Potassium (3.5 - 5.1 mmol/L) 4.1 4.2 Chloride (98 - 107 mmol/L) 98 95 L Carbon Dioxide (22 - 30 mmol/L) 29 30 Anion Gap (5 - 16) 9 8 BUN (9 - 20 mg/dL) 10 10 Creatinine (0.7 - 1.2 mg/dL) 0.5 L 0.5 L Estimated GFR (>60 ml/min) > 60 > 60 BUN/Creatinine Ratio (7 - 25 %) 20.0 20.0 Magnesium (1.6 - 2.3 mg/dL) 1.4 L Coagulation PT (9.4 - 12.5 SEC) 18.1 H 22.5 H INR (0.90 - 1.17) 1.65 H 2.05 H Hematology CBC w Diff NO MAN DIFF REQ NO MAN DIFF REQ WBC (4.8 - 10.8 /CUMM) 11.8 H 13.5 H RBC (4.70 - 6.10 /CUMM) 4.82 4.74 Hgb (14.0 - 18.0 G/DL) 14.5 14.1 Hct (42 - 52 %) 42.9 42.5 MCV (80.0 - 94.0 FL) 89.0 89.5 MCH (27.0 - 31.0 PG) 30.1 29.7 MCHC (33.0 - 37.0 G/DL) 33.8 33.2 RDW (11.5 - 14.5 %) 14.1 14.1 Plt Count (130 - 400 /CUMM) 137 120 L MPV (7.4 - 10.4 FL) 10.3 10.9 H Gran % (42.2 - 75.2 %) 69.2 72.9 Lymphocytes % (20.5 - 51.1 %) 14.7 L 13.4 L Monocytes % (1.7 - 9.3 %) 12.8 H 12.0 H Eosinophils % (0 - 5 %) 3.1 1.3 Basophils % (0.0 - 2.0 %) 0.2 0.4 Absolute Granulocytes (1.4 - 6.5 /CUMM) 8.2 H 9.8 H Absolute Lymphocytes (1.2 - 3.4 /CUMM) 1.7 1.8 Absolute Monocytes (0.10 - 0.60 /CUMM) 1.5 H 1.6 H Absolute Eosinophils (0.0 - 0.7 /CUMM) 0.4 0.2 Absolute Basophils (0.0 - 0.2 /CUMM) 0 0.1 Toxicology Digoxin (0.8 - 2.0 ng/mL) < 0.4 L 01/10 01/10 1835 1815 Chemistry Troponin I (<0.11 ng/ml) < 0.01 Urines Urinalysis LIGHT H Urine Color (YEL,AMB,STR) YEL Urine Clarity (CLEAR) CLEAR Urine pH (5.0 - 8.0) 6.0 Ur Specific [place] (1.001 - 1.035) 1.020 Urine Protein (NEG,<30 MG/DL) TRACE H Urine Ketones (NEG) NEG Urine Nitrite (NEG) POS H Urine Bilirubin (NEG) NEG Urine Urobilinogen (0.1 - 1.0 EU/dl) 0.2 Ur Leukocyte Esterase (NEG) TRACE H Ur Microscopic SEDIMENT EXAMINED Urine RBC (0 - 5 /HPF) RARE Urine WBC (0 - 2 /HPF) 25-50 H Ur Epithelial Cells (NONE,FEW) FEW Urine Bacteria (NEG/NONE) MANY H Urine Hemoglobin (NEG) TRACE-INTACT H Urine Glucose (N MG/DL) 500 H Vital Signs Date Time Temp Pulse Resp B/P B/P Pulse O2 O2 Flow FiO2 Mean Ox Delivery Rate 01/12 1431 98.1 100 20 122/70 98 Nasal 3.0L Cannula 01/12 1248 136/70 01/12 0933 140/78 01/12 0933 140/78 01/12 0933 140/68 01/12 0800 94 Nasal 3.0L Cannula 01/12 0702 98.4 90 18 142/78 95 Nasal Cannula 01/12 0106 93 Nasal 40% Cannula 01/12 0000 93 Nasal 40% Cannula 01/11 2200 98.5 105 18 152/78 93 Nasal 40% Cannula 01/11 2055 105 152/78 Assessment/Plan Assessment: 72 YOM with a PMH of DM, AFIB, Right HF, LARISA, Pulmonary HTN, and interstitial lung disease presents with acute hemoptysis, night sweats, dyspnea, and pleuritic chest pain with an opacity and pleural effusion noted in his right lung on CTA. Problem 1: Hemoptysis/chest pain/dyspnea with opacity and pleural effusion Ddx: CAP, histoplasmosis, neoplasm, pulmonary infarct Given his falling white count in response to treatment, an infectious etiology seems more likely at this point. Histoplasmosis seems unlikely given the timeline of the cave trip and symptom onset. Given his family history of cancer and his own history of lung disease, as well as the appearance of the opacity ( which seems attached to the chest wall), thoracocentesis may still be warranted to assess for any neoplastic process. - Continue or adjust IV antibiotics per ID recs - Consult with IR for thoracocentesis - Continue to hold warfarin - Start IV heparin for anitcoagulation - Continue other home meds - Repeat CMP with amylase/lipase - Close followup with plan for repeat CT at 3 months Problem 2: Bacteruria Patient is asymptomatic in this regard, and this infection is likely 2/2 uncontrolled diabetes. IV antibiotics should clear it up incidentally. - Monitor for future symptoms Problem 3: Poorly controlled diabetes Patient is already on 4 home meds in an attempt to controll this, but he may still benefit from an icrease to his insulin dose. He is interested in losing weight. - Lifestyle modification counseling - Consider increasing short-acting insulin dose.
[2018-01-12 14:31] VITALS: BP 122/70
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
--- NOTE | 2018-01-12 15:38 | RADIOLOGY REPORT ---
EXAMINATION: XR DECUBITUS FILMS CLINICAL INFORMATION: 72-year-old male with chest pain, hemoptysis and abnormal chest x-ray. CTA of the chest showed pleural-based dense irregular lobulated airspace opacification and small right-sided pleural effusion. Right decubitus chest x-ray is requested to reassess right-sided effusion. COMPARISON: CT of the chest done on 01/10/2018 and chest radiograph also done on 01/10/2018. TECHNIQUE: Decubitus right chest radiograph. FINDINGS: There is a layering small right-sided pleural effusion present. Previously identified pleural-based opacity is also visualized. IMPRESSION: Layering small right-sided pleural effusion. Previously documented pleural-based right-sided nonspecific airspace opacification is reidentified.
[2018-01-12 23:01] VITALS: BP 116/66
[2018-01-13 03:22] LABS: PTT 35 SEC (25-37)
[2018-01-13 07:02] VITALS: BP 120/72
[2018-01-13 07:40] LABS: ABSOLUTE BASOPHIL COUNT 0.1 /CUMM (0.0-0.2); ABSOLUTE EOSINOPHIL COUNT 0.4 /CUMM (0.0-0.7); ABSOLUTE GRANULOCYTE CT 6.4 /CUMM (1.4-6.5); ABSOLUTE LYMPH COUNT 2.3 /CUMM (1.2-3.4); ABSOLUTE MONOCYTE COUNT 1.4 /CUMM (0.10-0.60); BASOPHIL % 1.3 % (0.0-2.0); EOSINOPHIL % 3.5 % (0-5); GRANULOCYTE % 60.2 % (42.2-75.2); HEMATOCRIT 42.3 % (42-52); MEAN CORPUSCULAR HGB 29.5 PG (27.0-31.0); MEAN CORPUSCULAR HGB CONC 33.3 G/DL (33.0-37.0); MEAN CORPUSCULAR VOLUME 88.6 FL (80.0-94.0); MEAN PLATELET VOLUME 9.6 FL (7.4-10.4); PLATELET COUNT 163 /CUMM (130-400); RBC DISTRIBUTION WIDTH 13.8 % (11.5-14.5); RED BLOOD CELL CT 4.77 /CUMM (4.70-6.10); WHITE BLOOD CELL COUNT 10.7 /CUMM (4.8-10.8)
--- NOTE | 2018-01-13 08:14 | PN- Housestaff ---
Prachi HICKEY,Sujata 01/13/18 0814: Subjective Follow-up For: Acute hypoxic respiratory failure Plueral effusion Tele-Events Since Last Visit: A. fib, 85, 0.08, no overnight events Subjective: T-max 100, patient still complaining of right sided chest pain especially when he coughs or takes a deep breath. No overnight events Review of Systems Constitutional: Reports: see HPI. Cardiovascular: Denies: see HPI. Objective Last 24 Hrs of Vital Signs/I&O Vital Signs Date Time Temp Pulse Resp B/P B/P Pulse O2 O2 Flow FiO2 Mean Ox Delivery Rate 01/13 0702 98.2 88 20 120/72 94 01/13 0548 91 118/72 01/13 0000 93 Nasal 3.0L Cannula 01/12 2301 100.0 109 22 116/66 93 01/12 2159 100 122/70 01/12 2158 100 122/70 01/12 1431 98.1 100 20 122/70 98 Nasal 3.0L Cannula 01/12 1248 136/70 01/12 0933 140/78 01/12 0933 140/78 01/12 0933 140/68 Intake & Output 01/13 1600 01/13 0800 01/13 0000 Intake Total 440 500 Output Total 775 800 Balance -335 -300 Intake, Oral 440 500 Output, Urine 775 800 Patient 292 lb Weight Physical Exam General Appearance: Alert, Oriented X3, Cooperative, No Acute Distress Neck: Supple, No JVD Cardiovascular: Normal S1, Normal S2, Afib Lungs: decreased breath sounds in the right lower lung base Abdomen: Normal Bowel Sounds, Soft, No Tenderness Neurological: Normal Speech Extremities: No Clubbing, No Cyanosis, No Edema Vascular: Normal Pulses Assessment/Plan Assessment: Patient is 72 year old male with past medical history significant for diabetes mellitus, atrial fibrillation on warfarin, obstructive sleep apnea noncompliant with CPAP, right-sided heart failure, pulmonary hypertension, interstitial lung disease not on home oxygen who presented to ED with chief complain of cough associated with hemoptysis, right-sided chest pain and shortness of breath pulseox 71 at home. Problem list Cough with hemoptysis due to community-acquired infection versus neoplasm versus pulmonary infarction Atrial fibrillation with therapeutic INR Interstitial lung disease Acute hypoxic respiratory failure Diabetes mellitus Plan Follow-up sputum culture Blood culture negative Legionella and strep test urine antigen negative lateral decubitus chest x-ray showed a small layering right-sided pleural effusion Start subcu Lovenox for anticoagulation ID consult appreciated Follow-up cardiology and pulmonary recommendation Age adjusted d-dimer negative for DVT Venous Doppler ultrasound negative for DVT Continue ceftriaxone and azithromycin IV Accu-Chek readings run in high 200 will increase NovoLog sliding scale to high- dose Continue Levimir 32 daily Continue home medication DVT prophylaxis Alps Code full Problem List: 1. Pneumonia 2. Shortness of breath Pain Ratin Pain Location: right side of the chest Pain Goal: Pain 4 or less Pain Plan: Pathway Tomorrow's Labs & Rationales: CBC BEP Gloria Willingham 01/13/18 1050: Attending MD Review Statement Attending Statement Attending MD Statement: examined this patient, discuss w/resident/PA/LOAN DOCUMENTATION SPECIALIST, agreed w/resident/PA/LOAN DOCUMENTATION SPECIALIST, discussed with family, reviewed EMR data (avail), discussed with nursing, discussed with case mgmt, reviewed images, amended to note Attending Assessment/Plan: 72 o/m with acute hypoxic respiratroy failure on admission is being treated for community acquired pnenumonia. Patient says he c/o pleuritic chest pain, Leukocytosis 13>>11>>10, Chest xray with small right sided layered effusion not amnebale to tap as per IR. Apreciate ID consult, transition to PO abx. Continue follow pulmonary recommendations. ILD cont supportive therapy Lymphadenopathy might benefit from EUS in future. Outpatient PET scan once infection resolves. afib on anticoagulation, resume warfarin INR 1.6. lovenox bridge, rate controlled on metoprolol and cardizem. Cardiology Dr Alejandro following. rest cont current care plan of care d/fri patient bedside, gi/dvt prophyalxis full code. DISCHARGE FOLLOW UP Pulmoanry Dr Judge in [address] Alejandro in 2 weeks of discharge
[2018-01-13 08:19] LABS: PT 17.7 SEC (9.4-12.5)
[2018-01-13 08:42] VITALS: BP 143/80
--- NOTE | 2018-01-13 09:46 | PN- Pulmonary ---
Subjective HPI/Critical Care Issues: DOing well, stable NO sig fever Feels much improved DId Objective Current Medications: Current Medications Sig/Shavon Start time Last Medication Dose Route Stop Time Status Admin Acetaminophen 650 MG Q6P PRN 01/10 1700 AC 01/13 PO 0313 Albuterol Sulfate 3 ML Q4H PRN 01/10 1700 AC INH Azithromycin 500 MG DAILY@1600 01/11 1600 AC 01/12 Sodium Chloride 250 ML IV 1700 Ceftriaxone Sodium 1,000 MG DAILY@1600 01/11 1600 AC 01/12 IV 1700 Digoxin 0.25 MG DAILY 01/11 0900 AC 01/13 PO 0838 Diltiazem HCl 30 MG Q8 01/12 1400 AC 01/13 PO 0548 Furosemide 40 MG DAILY 01/11 09 AC 01/13 PO 0838 Gabapentin 300 MG TID PRN 01/10 1700 AC 01/10 PO 1845 Heparin Sodium 25,000 UNIT Q24H 01/12 1830 DC 01/12 (Porcine) IV 01/13 0600 2203 Sodium Chloride 500 ML Insulin Aspart 0 TIDAC 01/11 1700 AC 01/13 SC 0839 Insulin Detemir 32 UNITS DAILY 01/11 0900 AC 01/13 SC 0838 Losartan Potassium 25 MG DAILY 01/11 09 AC 01/13 PO 0838 Magnesium Oxide 400 MG BID 01/12 06 AC 01/13 PO 0838 Metoprolol Succinate 150 MG QPM 01/12 2100 AC 01/12 PO 2159 Tamsulosin HCl 0.4 MG DAILY 01/11 09 AC 01/13 PO 0838 Vital Signs & I&O Last 24 Hrs of Vitals and I&O: Vital Signs Date Time Temp Pulse Resp B/P B/P Pulse O2 O2 Flow FiO2 Mean Ox Delivery Rate 01/13 0842 88 143/80 94 Nasal 2.0L Cannula 01/13 0702 98.2 88 20 120/72 94 01/13 0548 91 118/72 01/13 0000 93 Nasal 3.0L Cannula 01/12 2301 100.0 109 22 116/66 93 01/12 2159 100 122/70 01/12 2158 100 122/70 01/12 1431 98.1 100 20 122/70 98 Nasal 3.0L Cannula 01/12 1248 136/70 Intake & Output 01/13 1600 01/13 0800 01/13 0000 Intake Total 440 500 Output Total 775 800 Balance -335 -300 Intake, Oral 440 500 Output, Urine 775 800 Patient 292 lb Weight Impression/Plan Impression/Plan Impression/Plan: CT IN 08/21 IMPRESSION: 1. There are no central segmental pulmonary emboli or thrombi. 2. There are multifocal interstitial changes, which may be consistent with interstitial lung disease, or inflammatory or infectious processes. These correspond to findings on the recent chest x-ray. There are small right and trace left pleural effusions. There is mild cardiomegaly. 3. There are enlarged mediastinal and subcarinal lymph nodes. VTE: Negative. DICTATED BY: Sylvester Cline MD DATE/TIME DICTATED:09/03/171804 PATIENT: ELAINE DELACRUZ PRESENT AGE: 72 PATIENT ACCOUNT NO: [id number] : 45 LOCATION: [facility] ORDERING PHYSICIAN: Elaine Reyes MD SERVICE DATE: 01/10/18-110 EXAM TYPE: CAT - CTA CHEST-PULMONARY EMBOLISM PULMONARY ARTERIES: No central or segmental pulmonary emboli. THORACIC AORTA: No aneurysm or dissection. LUNG: Pleural-based dense irregular lobulated airspace opacification is noted at superior segment of right lower lobe of the lung, measures 7.8 x 5.5 cm at its maximum transverse by anteroposterior dimension. Differential includes infection versus neoplasm or pulmonary infarct. The remainder of the lung mauricio show nonspecific linear prominent interstitial lung markings, may represent interstitial edema, evolving fibrosis, interstitial spread of neoplasm and less likely to be interstitial infiltrate. Few subpleural cystic changes are also noted predominantly at both upper lobes. The tracheobronchial tree appeared patent. PLEURA: Small amount of right-sided pleural effusion is present, appears slightly loculated posteromedially at superior to mid hemithorax. MEDIASTINUM: Normal heart size. No pericardial effusion. There are multiple shotty middle mediastinal, prevascular, right paratracheal lymph nodes present. Few shotty right infrahilar lymph nodes are also noted. No evidence of septal bowing or right heart strain. CHEST WALL/AXILLA: No axillary or internal mammary lymphadenopathy. OSSEOUS STRUCTURES: No acute or suspicious osseous abnormality. UPPER ABDOMEN: Unremarkable. No reflux of contrast into the hepatic veins to suggest elevated right heart pressures. When compared to most recent prior CT of the chest done on 09/03/2017, the right lower lobar pleural-based mass appears new. The size of the right-sided pleural effusion appears to have mildly increased while the left-sided pleural effusion is no longer present. IMPRESSION: 1. No CT evidence of pulmonary embolism. 2. Interval development of pleural-based dense irregular lobulated airspace opacification is noted at superior segment of right lower lobe of the lung, may represent infection versus neoplasm or pulmonary infarct. 3. Persistent stable nonspecific diffuse linear interstitial prominence and nonspecific shotty mediastinal lymph nodes, similar to prior study dated 09/03/2017. 4. Mild interval increase in size of the right-sided pleural effusion and interval resolution of the left-sided pleural effusion and interval development of few shotty right infrahilar lymph nodes. VTE: Negative DATE/TIME DICTATED:01/10/181301 General Appearance: Alert, Oriented X3, Cooperative, No Acute Distress Skin: No Rashes, No Breakdown, No Significant Lesion Skin Temp/Moisture Exam: Warm/Dry HEENT: Atraumatic, PERRLA, EOMI, Mucous Membr. moist/pink Neck: Supple Cardiovascular: Normal S1, Normal S2, No Murmurs, irregular irregular Lungs: bilateral diffuse fine crackles Abdomen: Normal Bowel Sounds, Soft, No Tenderness Extremities: No Clubbing, No Cyanosis, Normal Pulses, +1 bilateral pedal edema MPRESSION This is a gentleman with morbid obesity, previous diagnosis sleep apnea not on CPAP therapy, atrial fibrillation on anticoagulation, diabetes, morbid obesity, cirrhosis of the liver with previous alcohol abuse, previous hepatitis C infection, carpal tunnel syndrome, thrombocytopenia, previous history of significant smoking with previous CT scans being followed by Dr. Deshawn Estrada, with CT suggestive of nonspecific interstitial pneumonitis with previous workup for inflammatory and vasculitis negative, rheum work up neg now with His issues include * Clinically improving New rt lower lobe infiltrate consistant with rt lower lobe pneumona clinically, rt effusion small needs eval if worse * Interstitial lung disease which appears to be nonspecific ILD which has been present and seems to be slowly progressing in the recent past year causing to have hypoxemia on exertion. * Significant mediastinal and subcarinal lymphadenopathy, needs ebus * Previous diastolic dysfunction, afib on warfarin, now has clinical features sugg of fluid overload * Sig pulm htn due ot diastolic dz and prob untreated larisa * Previous CT scan suggestive of cirrhosis of the liver with portal hypertension * Bilateral pedal edema, * No clinical evidence suggestive of significant COPD exacerbation. Patient has interstitial lung disease predominantly. He does have recurrent bronchitis in the past, with pneumonia and parapneumonic effusion history RECOMMENDATION * COnt abx * sputum culture * Diuresis today IV lasix one dose * Will assess for effusions in am to see if he has a sizable one for a diagnostic tap * Hold warfarin and transition to heparin if INR is less than 1.5 * Patient would require an outpatient PET scan as he has significant lymphadenopathy and eventually might require bronchoscopy with endobronchial ultrasound-guided biopsy of his lymph nodes (biopsy of this lung probably may be challinging for dx of ild as his pulmonary artery pressures are sig high from his echocardiogram) * WOuld need reeval for LARISA in the future
--- NOTE | 2018-01-13 13:32 | PN- Infect Dx ---
Subjective Subjective: T-max 100. He feels improved with decreased right axillary pain and decreased shortness of breath. Objective Last 24 Hrs of Vital Signs/I&O Vital Signs Date Time Temp Pulse Resp B/P B/P Pulse O2 O2 Flow FiO2 Mean Ox Delivery Rate 01/13 0842 88 143/80 94 Nasal 2.0L Cannula 01/13 0702 98.2 88 20 120/72 94 01/13 0548 91 118/72 01/13 0000 93 Nasal 3.0L Cannula 01/12 2301 100.0 109 22 116/66 93 01/12 2159 100 122/70 01/12 2158 100 122/70 01/12 1431 98.1 100 20 122/70 98 Nasal 3.0L Cannula Intake & Output 01/13 1600 01/13 0800 01/13 0000 Intake Total 440 500 Output Total 775 800 Balance -335 -300 Intake, Oral 440 500 Output, Urine 775 800 Patient 292 lb Weight Physical Exam Other Physical Findings: He appears comfortable in no acute distress Lungs decreased breath sounds at the right base Heart regular rhythm with no murmur Extremities no cyanosis, clubbing or edema Results Last 24 Hours of Lab Results: Laboratory Tests 01/13 01/13 0645 0300 Chemistry Sodium (137 - 145 mmol/L) 135 L Potassium (3.5 - 5.1 mmol/L) 4.0 Chloride (98 - 107 mmol/L) 98 Carbon Dioxide (22 - 30 mmol/L) 27 Anion Gap (5 - 16) 10 BUN (9 - 20 mg/dL) 11 Creatinine (0.7 - 1.2 mg/dL) 0.5 L Estimated GFR (>60 ml/min) > 60 BUN/Creatinine Ratio (7 - 25 %) 22.0 Coagulation PT (9.4 - 12.5 SEC) 17.7 H INR (0.90 - 1.17) 1.62 H APTT (25 - 37 SEC) 35 Hematology CBC w Diff NO MAN DIFF REQ WBC (4.8 - 10.8 /CUMM) 10.7 RBC (4.70 - 6.10 /CUMM) 4.77 Hgb (14.0 - 18.0 G/DL) 14.1 Hct (42 - 52 %) 42.3 MCV (80.0 - 94.0 FL) 88.6 MCH (27.0 - 31.0 PG) 29.5 MCHC (33.0 - 37.0 G/DL) 33.3 RDW (11.5 - 14.5 %) 13.8 Plt Count (130 - 400 /CUMM) 163 MPV (7.4 - 10.4 FL) 9.6 Gran % (42.2 - 75.2 %) 60.2 Lymphocytes % (20.5 - 51.1 %) 21.8 Monocytes % (1.7 - 9.3 %) 13.2 H Eosinophils % (0 - 5 %) 3.5 Basophils % (0.0 - 2.0 %) 1.3 Absolute Granulocytes (1.4 - 6.5 /CUMM) 6.4 Absolute Lymphocytes (1.2 - 3.4 /CUMM) 2.3 Absolute Monocytes (0.10 - 0.60 /CUMM) 1.4 H Absolute Eosinophils (0.0 - 0.7 /CUMM) 0.4 Absolute Basophils (0.0 - 0.2 /CUMM) 0.1 Last 24 Hours of Nish Results: No recent cultures Recent Imaging Studies: Decubitus x-ray January 12 reveals a layering small right pleural effusion Assessment/Plan ID Impression: Improving, with a low-grade temperature overnight but with his white blood cell count continuing to decrease, on Ceftriaxone and Azithromycin, Day 3 of treatment for a right lower lobe pneumonia. He has a small right pleural effusion, which likely represents a parapneumonic effusion, given his clinical improvement. The CT scan did suggest the possibility of an underlying neoplasm, and he will require follow-up imaging. Suggestion: 1. Further evaluation/outpatient follow-up per Pulmonary for possible underlying neoplasm 2. Continue Ceftriaxone and Azithromycin
[2018-01-13 15:24] VITALS: BP 132/74
--- NOTE | 2018-01-13 18:01 | ECHOCARDIOGRAM REPORT ---
ELAINE DELACRUZ Age: 72 : 1945 Gender: M Exam Date: 01/12/2018 16:53 Exam Location: [address] Ht (in): 71 Wt (lb): 299 BSA: 2.67 BP: 122 / 70 Ordering Physician: Linda García MD Referring Physician: Jd Alejandro MD Technologist: Lissa Carty [facility] [[email or web address]] Room Number: 181 Indications: AFIB/FLUTTER Rhythm: Atrial fibrillation Technical Quality: Fair FINDINGS Left Ventricle Normal size left ventricle. Normal left ventricular wall thickness. No obvious regional wall motion abnormalities. Normal left ventricular ejection fraction visually estimated at.60%. Right Ventricle Normal right ventricular size and function. Right Atrium Mild to moderate right atrial dilatation. Left Atrium Moderate left atrial dilatation. Mitral Valve Mildly calcified mitral valve annulus. Mildly thickened mitral valve leaflets. Mild mitral regurgitation Aortic Valve Trileaflet aortic valve. Diffuse mild thickening of the aortic valve cusps with mildly reduced excursion. No hemodynamically significant aortic stenosis. Trace aortic regurgitation. Tricuspid Valve Structurally normal tricuspid valve. Trace tricuspid regurgitation. Moderate pulmonary hypertension. Right ventricular systolic pressure estimated to be elevated at 51 mmHg. Pulmonic Valve Pulmonic valve not well visualized, grossly normal. No pulmonic regurgitation. Pericardium No pericardial effusion. Great Vessels Normal size aortic root. Dilated inferior vena cava. CONCLUSIONS Normal size left ventricle. Normal left ventricular wall thickness. No obvious regional wall motion abnormalities. Normal left ventricular ejection fraction visually estimated at.60%. Normal right ventricular size and function. Mild to moderate right atrial dilatation. Moderate left atrial dilatation. Mild mitral regurgitation. No hemodynamically significant aortic stenosis. Trace aortic regurgitation. Trace tricuspid regurgitation. Moderate pulmonary hypertension. Dilated inferior vena cava. Jd Alejandro M.D. (Electronically Signed) Final Date: 13 January 2018 18:01 MEASUREMENTS (Male / Female) Normal Values 2D ECHO LV Diastolic Diameter PLAX 5.0 cm 4.2 - 5.9 / 3.9 - 5.3 cm LV Systolic Diameter PLAX 2.9 cm 2.1 - 4.0 cm LV Fractional Shortening PLAX 42.0 % 25 - 46 % LV Ejection Fraction 2D Teich 72.8 % IVS Diastolic Thickness 0.9 cm LVPW Diastolic Thickness 1.0 cm LV Relative Wall Thickness 0.4 RV Internal Dim ED PLAX 3.5 cm 1.9 - 3.8 cm LVOT Diameter 2.3 cm Aortic Root Diameter 3.3 cm LA Systolic Diameter LX 5.5 cm 3.0 - 4.0 / 2.7 - 3.8 cm LA Volume 86.0 cm 18 - 58 / 22 - 52 cm Ascending Aorta Diameter 3.3 cm DOPPLER AV Peak Velocity 172.0 cm/s AV Peak Gradient 11.8 mmHg AV Mean Velocity 123.0 cm/s AV Mean Gradient 7.0 mmHg AV Velocity Time Integral 30.6 cm LVOT Peak Velocity 122.0 cm/s LVOT Peak Gradient 6.0 mmHg LVOT Mean Velocity 86.4 cm/s LVOT Mean Gradient 3.0 mmHg LVOT Velocity Time Integral 22.6 cm LVOT Stroke Volume 93.9 cm AV Area Cont Eq vti 3.1 cm AV Area Cont Eq pk 2.9 cm MV Peak Velocity 119.0 cm/s MV Peak Gradient 5.7 mmHg MV Mean Velocity 58.0 cm/s MV Mean Gradient 2.0 mmHg Mitral E Point Velocity 124.0 cm/s MV PHT Velocity 123.0 cm/s MV Deceleration Sampson 447.0 cm/s MV Pressure Half Time 82.6 ms MV Area PHT 2.7 cm MV Deceleration Time 158.0 ms TR Peak Velocity 339.0 cm/s TR Peak Gradient 46.0 mmHg Right Atrial Pressure 5.0 mmHg Pulmonary Artery Systolic Pressu 51.0 mmHg Right Ventricular Systolic Press 51.0 mmHg PV Peak Velocity 103.0 cm/s PV Peak Gradient 4.2 mmHg PV Mean Velocity 64.9 cm/s PV Mean Gradient 2.0 mmHg PV Velocity Time Integral 16.0 cm LV E' Lateral Velocity 13.5 cm/s Mitral E to LV E' Lateral Ratio 9.2 LV E' Septal Velocity 10.1 cm/s Mitral E to LV E' Septal Ratio 12.3
[2018-01-13 20:58] VITALS: BP 134/76
[2018-01-14 07:07] VITALS: BP 146/108
--- NOTE | 2018-01-14 07:10 | PN- Housestaff ---
Prachi HICKEY,Sujata 01/14/18 0710: Subjective Follow-up For: Acute hypoxic respiratory failure Plueral effusion Tele-Events Since Last Visit: A flutter, 84, 0.1, no overnight events Subjective: Patient was seen and examined at bedside, he denies any complaints, no overnight events, vitals are stable Review of Systems Constitutional: Reports: see HPI. Objective Last 24 Hrs of Vital Signs/I&O Vital Signs Date Time Temp Pulse Resp B/P B/P Pulse O2 O2 Flow FiO2 Mean Ox Delivery Rate 01/14 1442 90 130/70 01/14 1403 98.1 90 18 130/70 94 Nasal 2.0L Cannula 01/14 1208 90 Room Air Room Air 01/14 0800 Nasal 2.0L Cannula 01/14 0753 90 120/62 01/14 0753 90 120/62 01/14 0750 90 120/62 01/14 0707 97.7 90 16 146/108 95 Nasal 4.0L Cannula 01/14 0602 88 146/108 01/135 Nasal 2.0L Cannula 01/13 2058 98.4 95 18 134/76 95 Nasal Cannula 01/14 2052 114 134/76 01/14 2052 114 134/76 01/13 1600 94 Nasal 2.0L Cannula Intake & Output 01/14 1600 01/14 0800 01/14 0000 Intake Total 750 240 360 Output Total 450 1650 Balance 750 -210 -1290 Intake, IV 30 Intake, Oral 720 240 360 Output, Urine 450 1650 Patient 292 lb Weight Weight Bed scale Measurement Method Physical Exam General Appearance: Alert, Oriented X3, Cooperative, No Acute Distress HEENT: Atraumatic, PERRLA, EOMI, Mucous Membr. moist/pink Cardiovascular: Normal S1, Normal S2 Lungs: decreased breath sounds on the right side Abdomen: Normal Bowel Sounds, Soft, No Tenderness Neurological: Normal Speech, Strength at 5/5 X4 Ext, Normal Tone, Sensation Intact, Cranial Nerves 3-12 NL Extremities: No Clubbing, No Cyanosis, No Edema Vascular: Normal Pulses Assessment/Plan Assessment: Patient is 72 year old male with past medical history significant for diabetes mellitus, atrial fibrillation on warfarin, obstructive sleep apnea noncompliant with CPAP, right-sided heart failure, pulmonary hypertension, interstitial lung disease not on home oxygen who presented to ED with chief complain of cough associated with hemoptysis, right-sided chest pain and shortness of breath pulseox 71 at home. Problem list Cough with hemoptysis due to community-acquired infection versus neoplasm versus pulmonary infarction Atrial fibrillation with therapeutic INR Interstitial lung disease Acute hypoxic respiratory failure Diabetes mellitus Plan Follow-up sputum culture Follow-up ultrasound of the chest to check if the patient will need ultrasound guided thoracocentesis if he has considerable amount of pleural effusion Blood culture negative Legionella and strep test urine antigen negative lateral decubitus chest x-ray showed a small layering right-sided pleural effusion Start subcu Lovenox for anticoagulation ID recommendations appreciated Follow-up cardiology and pulmonary recommendation DC ceftriaxone and azithromycin Started p.o. azithromycin 500 daily for 3 more days Accu-Chek readings run in high 200 will increase NovoLog sliding scale to high- dose Continue Levimir 32 daily She will need outpatient workup for LARISA and PET scan Continue home medication DVT prophylaxis Alps Code full Problem List: 1. Hemoptysis 2. Pneumonia 3. Acute respiratory failure with hypoxia Pain Ratin Pain Location: N/A Pain Goal: Remain pain free Pain Plan: Pathway Tomorrow's Labs & Rationales: CBC BEP Gloria Willingham 01/14/18 1320: Attending MD Review Statement Attending Statement Attending MD Statement: examined this patient, discuss w/resident/PA/SENIOR DIRECTOR OF STRATEGY, agreed w/resident/PA/SENIOR DIRECTOR OF STRATEGY, discussed with family, reviewed EMR data (avail), discussed with nursing, discussed with case mgmt, reviewed images, amended to note Attending Assessment/Plan: 72 o/m with acute hypoxic respiratroy failure on admission is being treated for community acquired pnenumonia right sided. Patient with overall clinical improvement. WBC stable. PO abx. Oxygen weaned down to 1L. Lymphadenopathy might benefit from EBUS in future. Outpatient PET scan once infection resolves. Afib rate controlled on anticoagulation, resumed warfarin. lovenox bridge, rate controlled on metoprolol and cardizem. Cardiology Dr Alejandro following. Discharge home with Po abx and if USG chest negative. DISCHARGE FOLLOW UP Pulmoanry Dr Judge in [address] Alejandro in 2 weeks of discharge
[2018-01-14 08:11] LABS: ABSOLUTE BASOPHIL COUNT 0 /CUMM (0.0-0.2); ABSOLUTE EOSINOPHIL COUNT 0.4 /CUMM (0.0-0.7); ABSOLUTE GRANULOCYTE CT 6.6 /CUMM (1.4-6.5); ABSOLUTE LYMPH COUNT 2.3 /CUMM (1.2-3.4); ABSOLUTE MONOCYTE COUNT 1.2 /CUMM (0.10-0.60); BASOPHIL % 0.4 % (0.0-2.0); EOSINOPHIL % 3.6 % (0-5); GRANULOCYTE % 62.4 % (42.2-75.2); HEMATOCRIT 46.4 % (42-52); MEAN CORPUSCULAR HGB 29.4 PG (27.0-31.0); MEAN CORPUSCULAR HGB CONC 33.2 G/DL (33.0-37.0); MEAN CORPUSCULAR VOLUME 88.6 FL (80.0-94.0); MEAN PLATELET VOLUME 9.4 FL (7.4-10.4); PLATELET COUNT 150 /CUMM (130-400); RBC DISTRIBUTION WIDTH 13.7 % (11.5-14.5); RED BLOOD CELL CT 5.24 /CUMM (4.70-6.10); WHITE BLOOD CELL COUNT 10.6 /CUMM (4.8-10.8)
[2018-01-14 08:17] LABS: PT 16.1 SEC (9.4-12.5)
--- NOTE | 2018-01-14 11:08 | PN- Infect Dx ---
Subjective Subjective: Afebrile without complaints. He has no further chest pain and notes a minimal, nonproductive cough. His shortness of breath has also improved. Objective Last 24 Hrs of Vital Signs/I&O Vital Signs Date Time Temp Pulse Resp B/P B/P Pulse O2 O2 Flow FiO2 Mean Ox Delivery Rate 01/14 0800 Nasal 2.0L Cannula 01/14 0753 90 120/62 01/14 0753 90 120/62 01/14 0750 90 120/62 01/14 0707 97.7 90 16 146/108 95 Nasal 4.0L Cannula 01/14 06 88 146/108 01/13 2115 Nasal 2.0L Cannula 01/13 2058 98.4 95 18 134/76 95 Nasal Cannula 01/14 2052 114 134/76 01/14 2052 114 134/76 01/13 1600 94 Nasal 2.0L Cannula 01/13 1524 98.3 96 20 132/74 94 Nasal Cannula 01/13 1413 96 136/80 Intake & Output 01/14 1600 01/14 0800 01/14 0000 Intake Total 240 360 Output Total 450 1650 Balance -210 -1290 Intake, Oral 240 360 Output, Urine 450 1650 Patient 292 lb Weight Weight Bed scale Measurement Method Physical Exam Other Physical Findings: He appears comfortable in no acute distress Lungs decreased breath sounds at the right base Heart regular rhythm with no murmur Extremities no cyanosis, clubbing or edema Results Last 24 Hours of Lab Results: Laboratory Tests 01/14 0655 Chemistry Sodium (137 - 145 mmol/L) 136 L Potassium (3.5 - 5.1 mmol/L) 4.3 Chloride (98 - 107 mmol/L) 97 L Carbon Dioxide (22 - 30 mmol/L) 29 Anion Gap (5 - 16) 10 BUN (9 - 20 mg/dL) 10 Creatinine (0.7 - 1.2 mg/dL) 0.5 L Estimated GFR (>60 ml/min) > 60 BUN/Creatinine Ratio (7 - 25 %) 20.0 Coagulation PT (9.4 - 12.5 SEC) 16.1 H INR (0.90 - 1.17) 1.47 H Hematology CBC w Diff NO MAN DIFF REQ WBC (4.8 - 10.8 /CUMM) 10.6 RBC (4.70 - 6.10 /CUMM) 5.24 Hgb (14.0 - 18.0 G/DL) 15.4 Hct (42 - 52 %) 46.4 MCV (80.0 - 94.0 FL) 88.6 MCH (27.0 - 31.0 PG) 29.4 MCHC (33.0 - 37.0 G/DL) 33.2 RDW (11.5 - 14.5 %) 13.7 Plt Count (130 - 400 /CUMM) 150 MPV (7.4 - 10.4 FL) 9.4 Gran % (42.2 - 75.2 %) 62.4 Lymphocytes % (20.5 - 51.1 %) 22.1 Monocytes % (1.7 - 9.3 %) 11.5 H Eosinophils % (0 - 5 %) 3.6 Basophils % (0.0 - 2.0 %) 0.4 Absolute Granulocytes (1.4 - 6.5 /CUMM) 6.6 H Absolute Lymphocytes (1.2 - 3.4 /CUMM) 2.3 Absolute Monocytes (0.10 - 0.60 /CUMM) 1.2 H Absolute Eosinophils (0.0 - 0.7 /CUMM) 0.4 Absolute Basophils (0.0 - 0.2 /CUMM) 0 Last 24 Hours of Nish Results: Blood cultures January 10 negative Assessment/Plan ID Impression: Doing well, with continued overall improvement, with temperatures and white blood cell count essentially normal on Ceftriaxone and Azithromycin, Day 4 of treatment for a right lower lobe pneumonia, complicated by a parapneumonic effusion. The CT scan did raise the possibility of an underlying neoplasm, and he will require follow-up imaging. Suggestion: 1. Further evaluation/outpatient follow-up per Pulmonary for possible underlying neoplasm 2. Discontinue Ceftriaxone 3. Change Azithromycin to 500 mg p.o. every 24 hours for 3 more days
[2018-01-14 14:03] VITALS: BP 130/70
--- NOTE | 2018-01-14 14:03 | PN- Pulmonary ---
Subjective HPI/Critical Care Issues: Afebrile without complaints. He has no further chest pain and notes a minimal, nonproductive cough. His shortness of breath has also improved. Objective Current Medications: Current Medications Sig/Shavon Start time Last Medication Dose Route Stop Time Status Admin Acetaminophen 650 MG .STK-MED ONE 01/14 0121 DC PO 01/14 0122 Acetaminophen 650 MG Q6P PRN 01/10 1700 01/14 PO 0122 Albuterol Sulfate 3 ML Q4H PRN 01/10 1700 AC INH Azithromycin 500 MG DAILY 01/14 1315 AC PO 01/16 0901 Azithromycin 500 MG DAILY@1600 01/11 1600 [place] 01/13 Sodium Chloride 250 ML IV 1742 Ceftriaxone Sodium 1,000 MG DAILY@1600 01/11 1600 [place] 01/13 IV 1742 Digoxin 0.25 MG DAILY 01/11 09 AC 01/14 PO 0753 Diltiazem HCl 30 MG Q8 01/12 1400 AC 01/14 PO 0602 Furosemide 40 MG DAILY 01/11 09 01/14 PO 0753 Gabapentin 300 MG TID PRN 01/10 1700 AC 01/10 PO 1845 Insulin Aspart 0 TIDAC 01/11 1700 01/14 SC 1205 Insulin Detemir 32 UNITS DAILY 01/11 09 01/14 SC 0746 Losartan Potassium 25 MG DAILY 01/11 0900 AC 01/14 PO 0750 Magnesium Oxide 400 MG BID 01/12 0600 AC 01/14 PO 0753 Metoprolol Succinate 150 MG QPM 01/12 2100 AC 01/13 PO 2052 Patient Medication 1 ED ONE ONE 01/14 1230 [facility] ED 01/14 1231 Patient Medication 1 ED ONE ONE 01/13 1630 [facility] 01/13 1631 Tamsulosin HCl 0.4 MG DAILY 01/11 09 01/14 PO 0753 Vital Signs & I&O Last 24 Hrs of Vitals and I&O: Vital Signs Date Time Temp Pulse Resp B/P B/P Pulse O2 O2 Flow FiO2 Mean Ox Delivery Rate 01/14 1208 90 Room Air Room Air 01/14 0800 Nasal 2.0L Cannula 01/14 0753 90 120/62 01/14 0753 90 120/62 01/14 0750 90 120/62 01/14 0707 97.7 90 16 146/108 95 Nasal 4.0L Cannula 01/14 0602 88 146/108 01/13 2115 Nasal 2.0L Cannula 01/13 2058 98.4 95 18 134/76 95 Nasal Cannula 01/13 205 114 134/76 01/14 2052 114 134/76 01/13 1600 94 Nasal 2.0L Cannula 01/13 1524 98.3 96 20 132/74 94 Nasal Cannula 01/13 1413 96 136/80 Intake & Output 01/14 1600 01/14 0800 01/14 0000 Intake Total 240 360 Output Total 450 1650 Balance -210 -1290 Intake, Oral 240 360 Output, Urine 450 1650 Patient 292 lb Weight Weight Bed scale Measurement Method Impression/Plan Impression/Plan Impression/Plan: CT IN 08/21 IMPRESSION: 1. There are no central segmental pulmonary emboli or thrombi. 2. There are multifocal interstitial changes, which may be consistent with interstitial lung disease, or inflammatory or infectious processes. These correspond to findings on the recent chest x-ray. There are small right and trace left pleural effusions. There is mild cardiomegaly. 3. There are enlarged mediastinal and subcarinal lymph nodes. VTE: Negative. DICTATED BY: Sylvester Cline MD DATE/TIME DICTATED:09/03/171804 PATIENT: ELAINE DELACRUZ PRESENT AGE: 72 PATIENT ACCOUNT NO: [id number] : 45 LOCATION: [facility] ORDERING PHYSICIAN: Elaine Reyes MD SERVICE DATE: 01/10/18-1101 EXAM TYPE: CAT - CTA CHEST-PULMONARY EMBOLISM PULMONARY ARTERIES: No central or segmental pulmonary emboli. THORACIC AORTA: No aneurysm or dissection. LUNG: Pleural-based dense irregular lobulated airspace opacification is noted at superior segment of right lower lobe of the lung, measures 7.8 x 5.5 cm at its maximum transverse by anteroposterior dimension. Differential includes infection versus neoplasm or pulmonary infarct. The remainder of the lung mauricio show nonspecific linear prominent interstitial lung markings, may represent interstitial edema, evolving fibrosis, interstitial spread of neoplasm and less likely to be interstitial infiltrate. Few subpleural cystic changes are also noted predominantly at both upper lobes. The tracheobronchial tree appeared patent. PLEURA: Small amount of right-sided pleural effusion is present, appears slightly loculated posteromedially at superior to mid hemithorax. MEDIASTINUM: Normal heart size. No pericardial effusion. There are multiple shotty middle mediastinal, prevascular, right paratracheal lymph nodes present. Few shotty right infrahilar lymph nodes are also noted. No evidence of septal bowing or right heart strain. CHEST WALL/AXILLA: No axillary or internal mammary lymphadenopathy. OSSEOUS STRUCTURES: No acute or suspicious osseous abnormality. UPPER ABDOMEN: Unremarkable. No reflux of contrast into the hepatic veins to suggest elevated right heart pressures. When compared to most recent prior CT of the chest done on 09/03/2017, the right lower lobar pleural-based mass appears new. The size of the right-sided pleural effusion appears to have mildly increased while the left-sided pleural effusion is no longer present. IMPRESSION: 1. No CT evidence of pulmonary embolism. 2. Interval development of pleural-based dense irregular lobulated airspace opacification is noted at superior segment of right lower lobe of the lung, may represent infection versus neoplasm or pulmonary infarct. 3. Persistent stable nonspecific diffuse linear interstitial prominence and nonspecific shotty mediastinal lymph nodes, similar to prior study dated 09/03/2017. 4. Mild interval increase in size of the right-sided pleural effusion and interval resolution of the left-sided pleural effusion and interval development of few shotty right infrahilar lymph nodes. VTE: Negative DATE/TIME DICTATED:01/10/181301 General Appearance: Alert, Oriented X3, Cooperative, No Acute Distress Skin: No Rashes, No Breakdown, No Significant Lesion Skin Temp/Moisture Exam: Warm/Dry HEENT: Atraumatic, PERRLA, EOMI, Mucous Membr. moist/pink Neck: Supple Cardiovascular: Normal S1, Normal S2, No Murmurs, irregular irregular Lungs: bilateral diffuse fine crackles Abdomen: Normal Bowel Sounds, Soft, No Tenderness Extremities: No Clubbing, No Cyanosis, Normal Pulses, +1 bilateral pedal edema MPRESSION This is a gentleman with morbid obesity, previous diagnosis sleep apnea not on CPAP therapy, atrial fibrillation on anticoagulation, diabetes, morbid obesity, cirrhosis of the liver with previous alcohol abuse, previous hepatitis C infection, carpal tunnel syndrome, thrombocytopenia, previous history of significant smoking with previous CT scans being followed by Dr. Deshawn Estrada, with CT suggestive of nonspecific interstitial pneumonitis with previous workup for inflammatory and vasculitis negative, rheum work up neg now with His issues include * Clinically improving New rt lower lobe infiltrate consistant with rt lower lobe pneumona clinically, rt effusion small needs eval if still presentg * Sig diuresis with prob mild fluid overload * Interstitial lung disease which appears to be nonspecific ILD which has been present and seems to be slowly progressing in the recent past year causing to have hypoxemia on exertion. * Significant mediastinal and subcarinal lymphadenopathy, needs ebus * Previous diastolic dysfunction, afib on warfarin, now has clinical features sugg of fluid overload * Sig pulm htn due ot diastolic dz and prob untreated larisa * Previous CT scan suggestive of cirrhosis of the liver with portal hypertension * Bilateral pedal edema, * No clinical evidence suggestive of significant COPD exacerbation. Patient has interstitial lung disease predominantly. He does have recurrent bronchitis in the past, with pneumonia and parapneumonic effusion history * HEp c not treated with high viral load with radiological evidence of cirrhosis needs follow up RECOMMENDATION * COnt abx ok with po * sputum culture * Ultrasound guided tap for diagnostic purpose if able today * Diuresis today IV lasix one dose today if able * Wean oxygen off, and needs out pt eval * Patient would require an outpatient PET scan as he has significant lymphadenopathy and eventually might require bronchoscopy with endobronchial ultrasound-guided biopsy of his lymph nodes (biopsy of this lung probably may be challinging for dx of ild as his pulmonary artery pressures are sig high from his echocardiogram) * WOuld need reeval for LARISA in the future
--- NOTE | 2018-01-14 16:34 | ULTRASOUND REPORT ---
EXAMINATION: US PLEURAL EFFUSION CLINICAL INFORMATION: 72-year-old male with right pleural effusion. Evaluate for empyema. COMPARISON: None TECHNIQUE: Limited ultrasound of the right chest was performed at bedside. FINDINGS: Ultrasound imaging of the right chest revealed small simple appearing pleural effusion. No septations are identified. This would be amenable to thoracentesis if clinically indicated. CONCLUSION: Small simple right pleural effusion identified. This would be amenable to thoracentesis if clinically indicated.
[2018-01-14 21:33] VITALS: BP 142/80
[2018-01-15 06:21] VITALS: BP 132/68
--- NOTE | 2018-01-15 07:08 | PN- Housestaff ---
Prachi HICKEY,Sujata 01/15/18 0707: Subjective Follow-up For: Acute hypoxic respiratory failure Plueral effusion Tele-Events Since Last Visit: Atrial flutter, PT, 0.1, no overnight events Subjective: Patient was seen and examined, denies any complaints, will be going today for diagnostic thoracocentesis, he was on heparin drip overnight which was stopped at 4 AM before thoracocentesis Review of Systems Constitutional: Reports: see HPI. Objective Last 24 Hrs of Vital Signs/I&O Vital Signs Date Time Temp Pulse Resp B/P B/P Pulse O2 O2 Flow FiO2 Mean Ox Delivery Rate 01/15 1418 98.1 91 20 124/70 93 Room Air 01/15 1303 92 118/60 01/15 0805 88 132/68 01/15 0805 88 132/68 01/15 0805 88 132/68 01/15 0800 94 Nasal 1.0L Cannula 01/15 0634 88 132/68 01/15 0621 98.7 88 20 132/68 93 Nasal Cannula 01/15 0000 Nasal 1.0L Cannula 01/14 2208 90 142/80 01/14 2207 90 142/80 01/14 2133 98.2 92 20 142/80 93 Nasal Cannula Intake & Output 01/15 1600 01/15 0800 01/15 0000 Intake Total 400 180 Output Total 490 418 6160 Balance -250 -100 -1470 Intake, Oral 400 180 Output, Urine 794 090 2799 Patient 287 lb 287 lb Weight Weight Bed scale Measurement Method Physical Exam General Appearance: Alert, Oriented X3, Cooperative, No Acute Distress HEENT: Atraumatic, PERRLA, EOMI, Mucous Membr. moist/pink Cardiovascular: Normal S1, Normal S2, No Murmurs Lungs: Clear to Auscultation Abdomen: Normal Bowel Sounds, Soft, No Tenderness Neurological: Normal Gait, Normal Speech, Strength at 5/5 X4 Ext, Normal Tone, Sensation Intact, Cranial Nerves 3-12 NL, Reflexes 2+ Extremities: No Clubbing, No Cyanosis, No Edema Assessment/Plan Assessment: Assessment: Patient is 72 year old male with past medical history significant for diabetes mellitus, atrial fibrillation on warfarin, obstructive sleep apnea noncompliant with CPAP, right-sided heart failure, pulmonary hypertension, interstitial lung disease not on home oxygen who presented to ED with chief complain of cough associated with hemoptysis, right-sided chest pain and shortness of breath pulseox 71 at home. Problem list Cough with hemoptysis due to community-acquired infection versus neoplasm versus pulmonary infarction Atrial fibrillation with therapeutic INR Interstitial lung disease Acute hypoxic respiratory failure Diabetes mellitus Plan Follow-up sputum culture Pleural fluid looks accident with increased WBC and LDH in addition to increased RBCs which might be hemorrhagic versus traumatic. Differential diagnosis includes parapneumonic versus malignant Follow-up on cytology and microbiology pleural fluid Blood culture negative Legionella and strep test urine antigen negative lateral decubitus chest x-ray showed a small layering right-sided pleural effusion Start subcu Lovenox for anticoagulation ID recommendations appreciated Follow-up cardiology and pulmonary recommendation Continue p.o. azithromycin 500 daily for 3 more days Accu-Chek readings run in high 200 will increase NovoLog sliding scale to high- dose Continue Levimir 32 daily It is a stable to be discharged home today to follow-up with his PCP on the results of the pleural tap She will need outpatient workup for LARISA and PET scan Continue home medication DVT prophylaxis Alps Code full Problem List: 1. Pleural effusion 2. Pneumonia Pain Ratin Pain Location: N/A Pain Goal: Remain pain free Pain Plan: Pathway Tomorrow's Labs & Rationales: n/a MaulikGloria 01/15/18 1128: Attending MD Review Statement Attending Statement Attending MD Statement: examined this patient, discuss w/resident/PA/WATCH CRYSTAL GRINDER, agreed w/resident/PA/WATCH CRYSTAL GRINDER, discussed with family, reviewed EMR data (avail), discussed with nursing, discussed with case mgmt, reviewed images, amended to note Attending Assessment/Plan: Patient going for USG chest. Will follow results from thoracentesis. Overall clinical improvement. Thoracocentesis results suggestive of serosangineous exudative fluid with ph 7.31. Gram stain and culture sent. Discussed results with pulmonary which is ok for discharge to home today with outpatient follow up with Dr Judge.
[2018-01-15 07:48] LABS: PTT 29 SEC (25-37)
[2018-01-15 07:55] LABS: ABSOLUTE BASOPHIL COUNT 0.1 /CUMM (0.0-0.2); ABSOLUTE EOSINOPHIL COUNT 0.4 /CUMM (0.0-0.7); ABSOLUTE GRANULOCYTE CT 6.8 /CUMM (1.4-6.5); ABSOLUTE LYMPH COUNT 2.5 /CUMM (1.2-3.4); ABSOLUTE MONOCYTE COUNT 1.4 /CUMM (0.10-0.60); BASOPHIL % 0.5 % (0.0-2.0); EOSINOPHIL % 3.2 % (0-5); GRANULOCYTE % 61.1 % (42.2-75.2); HEMATOCRIT 43.1 % (42-52); MEAN CORPUSCULAR HGB 29.8 PG (27.0-31.0); MEAN CORPUSCULAR HGB CONC 34.2 G/DL (33.0-37.0); MEAN PLATELET VOLUME 10.6 FL (7.4-10.4); PLATELET COUNT 168 /CUMM (130-400); RBC DISTRIBUTION WIDTH 13.4 % (11.5-14.5); RED BLOOD CELL CT 4.95 /CUMM (4.70-6.10); WHITE BLOOD CELL COUNT 11.2 /CUMM (4.8-10.8)
[2018-01-15] MEDS ORDERED: COUMADIN5 M2 PO ×2 (11:15→13:32)
[2018-01-15] MEDS ORDERED: AZITHROMYCIN500 M3 PO ×2 (11:15→13:32)
[2018-01-15] MEDS ORDERED: TOPROL XL100 M1 PO ×2 (11:21→13:32)
[2018-01-15] MEDS ORDERED: CARDIZEM30 M1 PO ×2 (11:21→13:32)
--- NOTE | 2018-01-15 12:16 | RADIOLOGY REPORT ---
EXAMINATION:\H\ \N\XR CHEST CLINICAL INFORMATION: 72-year-old male, status post right-sided thoracentesis done earlier this morning. For follow up. COMPARISON: Chest radiograph done on 01/12/2018, 01/10/[address] of the chest done on 01/10/2018. TECHNIQUE: Frontal view of the chest was obtained. FINDINGS: Previously documented right-sided pleural effusion is no longer visualized. There is no evidence of any right-sided pneumothorax on this patient with prior ultrasound-guided thoracentesis done this morning. Persistent nonspecific pleural-based opacity seen at right mid lung field is still present. The remainder of the lung mauricio are clear. The cardiomediastinal silhouette is within normal limits. IMPRESSION: 1. No evidence of any right-sided pneumothorax on this patient with ultrasound-guided thoracentesis done earlier this morning. 2. Previously documented right-sided pleural effusion is no longer present. 3. Previously documented nonspecific right mid lung peripheral airspace opacity is still present.
--- NOTE | 2018-01-15 12:50 | PN- Cardiology ---
Subjective Subjective: Status post right thoracentesis this morning. Complaining of some discomfort at the thoracentesis site. Acceptable ventricular response to atrial fibrillation on telemetry. Objective Vital Signs and I&Os Vital Signs Date Time Temp Pulse Resp B/P B/P Pulse O2 O2 Flow FiO2 Mean Ox Delivery Rate 01/15 0805 88 132/68 01/15 0805 88 132/68 01/15 0805 88 132/68 01/15 0800 94 Nasal 1.0L Cannula 01/15 0634 88 132/68 01/15 0621 98.7 88 20 132/68 93 Nasal Cannula 01/15 0000 Nasal 1.0L Cannula 01/14 2208 90 142/80 01/14 2207 90 142/80 01/14 2133 98.2 92 20 142/80 93 Nasal Cannula 01/14 1442 90 130/70 01/14 1403 98.1 90 18 130/70 94 Nasal 2.0L Cannula Intake & Output 01/15 1600 01/15 0800 01/15 0000 01/14 1600 01/14 0800 01/14 0000 Intake Total 400 180 750 240 360 Output Total 500 7835 251 4721 Balance -100 -1470 750 -210 -1290 Intake, IV 30 Intake, Oral 400 180 720 240 360 Output, Urine 500 3590 332 4301 Patient 287 lb 287 lb 292 lb Weight Weight Bed scale Bed scale Measurement Method Physical Exam: Well-developed, morbidly obese elderly male in mild respiratory distress with oxygen in place. Vital signs: See above. HEENT: Normocephalic, atraumatic, EOMI, moist mucous membranes. Neck: No JVD, no bruits. Lungs: Decreased breath sounds bilaterally, especially at the bases. Heart: S1, S2 (both distant) and irregularly, irregular. Abdomen: Soft, nontender, positive bowel sounds. Extremities: No edema. Current Medications: Current Medications Sig/Shavon Start time Last Medication Dose Route Stop Time Status Admin Acetaminophen 650 MG .STK-MED ONE 01/14 2026 DC PO 01/14 2027 Acetaminophen 650 MG Q6P PRN 01/10 1700 AC 01/15 PO 1204 Albuterol Sulfate 3 ML Q4H PRN 01/10 1700 AC INH Azithromycin 500 MG DAILY 01/14 1315 AC 01/15 PO 01/16 0901 0806 Azithromycin 500 MG DAILY@1600 06/10 1600 DC 01/13 Sodium Chloride 250 ML IV 1742 Ceftriaxone Sodium 1,000 MG DAILY@1600 01/11 1600 DC 01/13 IV 1742 Digoxin 0.25 MG DAILY 01/11 0900 AC 01/15 PO 0805 Diltiazem HCl 30 MG Q8 01/12 1400 AC 01/15 PO 0634 Furosemide 20 MG ONCE ONE 01/14 1500 DC 01/14 IV 01/14 1501 1603 Furosemide 40 MG DAILY 01/11 0900 AC 01/15 PO 0805 Gabapentin 300 MG TID PRN 01/10 1700 AC 01/10 PO 1845 Heparin Sodium 25,000 UNIT Q24H 01/14 1730 DC 01/14 (Porcine) IV 01/15 0400 1758 Sodium Chloride 500 ML Insulin Aspart 0 TIDAC 01/11 1700 AC 01/15 SC 1206 Insulin Detemir 32 UNITS DAILY 01/11 0900 AC 01/15 SC 0745 Losartan Potassium 25 MG DAILY 01/11 0900 AC 01/15 PO 0805 Magnesium Oxide 400 MG BID 01/12 0600 AC 01/15 PO 0806 Metoprolol Succinate 150 MG QPM 01/12 2100 AC 01/14 PO 2208 Tamsulosin HCl 0.4 MG DAILY 01/11 0900 AC 01/15 PO 0805 Results Last 48 Hrs of Labs/Mics: Laboratory Tests 01/15/18 1020: Pleural pH 7.39 01/15/18 1020: Fluid WBC 5830 H, Fld Mesothelial Cells , Fld Total RBCs Counted 55961 H 01/15/18 1020: Lymphocytes 41, % Normal PMNs 45, Misc Hematology Test , Phlebotomy Draw Site RT THORACENTESIS, Fluid Glucose 246, Fluid Total Protein 4.6, Fluid Albumin 2.1, Fluid LDH 2093, Fluid Amylase < 30 01/15/18 0618: Anion Gap 11, Estimated GFR > 60, BUN/Creatinine Ratio 22.0, Lactate Dehydrogenase 609, Albumin 3.0 L, APTT 29, CBC w Diff NO MAN DIFF REQ, RBC 4.95 , MCV 87.0, MCH 29.8, MCHC 34.2, RDW 13.4, MPV 10.6 H, Gran % 61.1, Lymphocytes % 22.8, Monocytes % 12.4 H, Eosinophils % 3.2, Basophils % 0.5, Absolute Granulocytes 6.8 H, Absolute Lymphocytes 2.5, Absolute Monocytes 1.4 H, Absolute Eosinophils 0.4, Absolute Basophils 0.1 01/15/18 0000: APTT Cancelled 01/14/18 1719: Fluid WBC Cancelled, Fld Total RBCs Counted Cancelled 01/14/18 1719: Fluid Albumin Cancelled 01/14/18 0655: Anion Gap 10, Estimated GFR > 60, BUN/Creatinine Ratio 20.0, PT 16.1 H, INR 1.47 H, CBC w Diff NO MAN DIFF REQ, RBC 5.24, MCV 88.6, MCH 29.4, MCHC 33.2, RDW 13.7, MPV 9.4, Gran % 62.4, Lymphocytes % 22.1, Monocytes % 11.5 H, Eosinophils % 3.6, Basophils % 0.4, Absolute Granulocytes 6.6 H, Absolute Lymphocytes 2.3, Absolute Monocytes 1.2 H, Absolute Eosinophils 0.4, Absolute Basophils 0 Recent Imaging Studies: CXR 01/15/2018: 1. No evidence of any right-sided pneumothorax on this patient with ultrasound- guided thoracentesis done earlier this morning. 2. Previously documented right-sided pleural effusion is no longer present. 3. Previously documented nonspecific right mid lung peripheral airspace opacity is still present. Assessment/Plan Assessment/Plan [id number] w/ hx of obesity, fmr tob use, LARISA w/o CPAP 2/2 noncompliance, ILD, HTN, DM, & permanent AF on AC w/ beta yeni/digoxin for rate control who presented to the ED 01/10/2018 w/ a 3 day c/o progressive SOB, bld-tinged sputum, & worsening O2 sats that dipped into the low 70% range on Friday, 04/2018 a.m. w/ assoc initial constant R sided back pain that subsequently radiated around to his R chest that was also constant, but had exacerbations w/ positional change. He did not note any exacerbation w/ deep inspiration. Acute respiratory failure likely 2/2 community-acquired PNA w/ a pleuritic component possibly 2/2 an empyema, parapneumonic effusion, malignancy, etc. Status post right thoracentesis earlier with no evidence of pneumothorax on CXR. The ventricular response to his age fibrillation is acceptable on his present regimen of metoprolol succinate 150 mg daily, digoxin 0.25 mg daily, and diltiazem 30 mg 3 times daily. Recommendations: * Continue on telemetry. * Outpatient PET scan as per pulmonary medicine. * DVT prophylaxis. Continue telemetry? Yes
--- NOTE | 2018-01-15 13:01 | ULTRASOUND REPORT ---
PROCEDURE: Thoracentesis CLINICAL INFORMATION: Pleural Effusion COMPARISON: Chest ultrasound 01/14/2018 and CTA chest 01/10/2018 TECHNIQUE: Direct ultrasound guided thoracentesis using a 5 Croatian Yueh catheter. FINDINGS: Informed consent was obtained from the patient prior to the procedure. During this process, the procedure alternatives were explained, along with the intended outcome and benefits. The risks of the procedure, as well as the risk of not doing the procedure, was discussed. The patient was given the opportunity to ask questions regarding the procedure and appeared competent to make medical decisions. A signed consent form which documents this discussion was placed in the medical record. A timeout procedure was performed. Ultrasound evaluation of the chest for pleural fluid was performed. A small pleural effusion is noted on the right side. Using standard interventional and sterile techniques, lidocaine was used to anesthetize the region. A 5 Croatian Yueh catheter was introduced into the right pleural fluid using standard safety needle technique. Approximately 130 mL of cloudy mildly serosanguineous fluid was removed until drainage ceased. The catheter was then removed. Good hemostasis was achieved. The patient tolerated the procedure well. A sterile dressing was placed. The patient was discharged from the department in stable condition. Patient scheduled for post procedure followup x-ray. COMPLICATIONS: None. IMPRESSION: Successful ultrasound-guided thoracentesis yielding 130 mL's of fluid.
--- NOTE | 2018-01-15 13:27 | Patient Discharge Instructions ---
Discharge Instructions General Discharge Information Special Instructions: Please follow up with PCP within one week after discahrge Please follow up with Dr. Judge lung doctor within one week after discharge Please followup with Dr. Alejandro cardiology after discharge Please take antibotic as prescribed Acute Coronary Syndrome Inclusion Criteria At DC or during hospital stay patient has or had the following: ACS DIAGNOSIS No Discharge Core Measures Meds if any: Prescribed or Continued at Discharge Meds if any: NOT Prescribed or Continued at Discharge Congestive Heart Failure Inclusion Criteria At DC or during hospital stay patient has or had the following: CHF DIAGNOSIS No Discharge Core Measures Meds if any: Prescribed or Continued at Discharge Meds if any: NOT Prescribed or Continued at Discharge Cerebrovascular accident Inclusion Criteria At DC or during hospital stay patient has or had the following: CVA/TIA Diagnosis No Discharge Core Measures Meds if any: Prescribed or Continued at Discharge Meds if any: NOT Prescribed or Continued at Discharge Venous thromboembolism Inclusion Criteria VTE Diagnosis No VTE Type NONE VTE Confirmed by (Test) NONE Discharge Core Measures - Per Current guidelines, there needs to be overlap - treatment for the first 5 days of Warfarin therapy. - If discharged on Warfarin prior to 5 days of - overlap therapy, the patient will need to be - assessed for post discharge needs including - *Post discharge parental anticoagulation - *Warfarin and/or parental anticoagulation education - *Follow up date to check INR post discharge At least 5 days overlap therapy as Inpatient No Meds if any: Prescribed or Continued at Discharge Note: Overlap Therapy is Warfarin and Anticoagulant Meds if any: NOT Prescribed or Continued at Discharge
--- NOTE | 2018-01-15 13:37 | PN- Pulmonary ---
Subjective HPI/Critical Care Issues: Doing well stable s/p tap exudate no evidence of empyema Objective Current Medications: Current Medications Sig/Shavon Start time Last Medication Dose Route Stop Time Status Admin Acetaminophen 650 MG .STK-MED ONE 01/14 2026 DC PO 01/14 2027 Acetaminophen 650 MG Q6P PRN 01/10 1700 AC 01/15 PO 1204 Albuterol Sulfate 3 ML Q4H PRN 01/10 1700 AC INH Azithromycin 500 MG DAILY 01/14 1315 AC 01/15 PO 01/16 0901 0806 Digoxin 0.25 MG DAILY 01/11 0900 AC 01/15 PO 0805 Diltiazem HCl 30 MG Q8 01/12 1400 AC 01/15 PO 1303 Furosemide 20 MG ONCE ONE 01/14 1500 DC 01/14 IV 01/14 1501 1603 Furosemide 40 MG DAILY 01/11 0900 AC 01/15 PO 0805 Gabapentin 300 MG TID PRN 01/10 1700 AC 01/10 PO 1845 Heparin Sodium 25,000 UNIT Q24H 01/14 1730 DC 01/14 (Porcine) IV 01/15 0400 1758 Sodium Chloride 500 ML Insulin Aspart 0 TIDAC 01/11 1700 AC 01/15 SC 1206 Insulin Detemir 32 UNITS DAILY 01/11 0900 AC 01/15 SC 0745 Losartan Potassium 25 MG DAILY 01/11 0900 AC 01/15 PO 0805 Magnesium Oxide 400 MG BID 01/12 0600 AC 01/15 PO 0806 Metoprolol Succinate 150 MG QPM 01/12 2100 AC 01/14 PO 2208 Tamsulosin HCl 0.4 MG DAILY 01/11 0900 AC 01/15 PO 0805 Vital Signs & I&O Last 24 Hrs of Vitals and I&O: Vital Signs Date Time Temp Pulse Resp B/P B/P Pulse O2 O2 Flow FiO2 Mean Ox Delivery Rate 01/15 1303 92 118/60 01/15 0805 88 132/68 01/15 0805 88 132/68 01/15 0805 88 132/68 01/15 0800 94 Nasal 1.0L Cannula 01/15 0634 88 132/68 01/15 0621 98.7 88 20 132/68 93 Nasal Cannula 01/15 0000 Nasal 1.0L Cannula 01/15 2208 90 142/80 01/14 2207 90 142/80 06/13 2133 98.2 92 20 142/80 93 Nasal Cannula 01/14 1442 90 130/70 01/14 1403 98.1 90 18 130/70 94 Nasal 2.0L Cannula Intake & Output 01/15 1600 01/15 0800 01/15 0000 Intake Total 400 180 Output Total 500 1650 Balance -100 -1470 Intake, Oral 400 180 Output, Urine 500 1650 Patient 287 lb 287 lb Weight Weight Bed scale Measurement Method Impression/Plan Impression/Plan Impression/Plan: General Appearance: Alert, Oriented X3, Cooperative, No Acute Distress Skin: No Rashes, No Breakdown, No Significant Lesion Skin Temp/Moisture Exam: Warm/Dry HEENT: Atraumatic, PERRLA, EOMI, Mucous Membr. moist/pink Neck: Supple Cardiovascular: Normal S1, Normal S2, No Murmurs, irregular irregular Lungs: bilateral diffuse fine crackles Abdomen: Normal Bowel Sounds, Soft, No Tenderness Extremities: No Clubbing, No Cyanosis, Normal Pulses, +1 bilateral pedal edema MPRESSION This is a gentleman with morbid obesity, previous diagnosis sleep apnea not on CPAP therapy, atrial fibrillation on anticoagulation, diabetes, morbid obesity, cirrhosis of the liver with previous alcohol abuse, previous hepatitis C infection, carpal tunnel syndrome, thrombocytopenia, previous history of significant smoking with previous CT scans being followed by Dr. Deshawn Estrada, with CT suggestive of nonspecific interstitial pneumonitis with previous workup for inflammatory and vasculitis negative, rheum work up neg now with His issues include * Clinically improving New rt lower lobe infiltrate consistant with rt lower lobe pneumona clinically, rt effusion small s/p tap exudate path pending and no evidence of empyema * Interstitial lung disease which appears to be nonspecific ILD which has been present and seems to be slowly progressing in the recent past year causing to have hypoxemia on exertion. * Significant mediastinal and subcarinal lymphadenopathy, needs ebus * Previous diastolic dysfunction, afib on warfarin, now has clinical features sugg of fluid overload * Sig pulm htn due ot diastolic dz and prob untreated larisa * Previous CT scan suggestive of cirrhosis of the liver with portal hypertension * Bilateral pedal edema, * No clinical evidence suggestive of significant COPD exacerbation. Patient has interstitial lung disease predominantly. He does have recurrent bronchitis in the past, with pneumonia and parapneumonic effusion history RECOMMENDATION * COnt abx po * REsume anticoag * PT is aware to follow up with me and phone number given to him, As his current pulm md is retiring * Patient would require an outpatient PET scan as he has significant lymphadenopathy and eventually might require bronchoscopy with endobronchial ultrasound-guided biopsy of his lymph nodes (biopsy of this lung probably may be challinging for dx of ild as his pulmonary artery pressures are sig high from his echocardiogram) * WOuld need reeval for LARISA in the future
[2018-01-15 14:18] VITALS: BP 124/70
--- NOTE | 2018-01-15 15:11 | Discharge Summary ---
Visit Information Visit Dates Admission Date: 01/10/18 Discharge Date: 01/15/18 Hospital Course Course Attending Physician: Gloria Willingham MD Primary Care Physician: Brittnee Sterling MD Hospital Course: 72 year old male with past medical history significant for diabetes mellitus, atrial fibrillation on warfarin, obstructive sleep apnea noncompliant with CPAP, right-sided heart failure, pulmonary hypertension, interstitial lung disease not on home oxygen who presented to ED with chief complain of cough associated with hemoptysis, right-sided chest pain and shortness of breath pulseox 71 at home CTA chest: 1. No CT evidence of pulmonary embolism. 2. Interval development of pleural-based dense irregular lobulated airspace opacification is noted at superior segment of right lower lobe of the lung, may represent infection versus neoplasm or pulmonary infarct. 3. Persistent stable nonspecific diffuse linear interstitial prominence and nonspecific shotty mediastinal lymph nodes, similar to prior study dated 09/03/2017. 4. Mild interval increase in size of the right-sided pleural effusion and interval resolution of the left-sided pleural effusion and interval development of few shotty right infrahilar lymph nodes. Lower extremity Doppler: No evidence of deep venous thrombosis involving the bilateral lower extremities. Chest ultrasound: Small simple right pleural effusion identified. This would be amenable to thoracentesis if clinically indicated. Echo: Normal size left ventricle. Normal left ventricular wall thickness. No obvious regional wall motion abnormalities. Normal left ventricular ejection fraction visually estimated at.60%. Normal right ventricular size and function. Mild to moderate right atrial dilatation. Moderate left atrial dilatation. Mild mitral regurgitation. No hemodynamically significant aortic stenosis. Trace aortic regurgitation. Trace tricuspid regurgitation. Moderate pulmonary hypertension. Dilated inferior vena cava. Patient was admitted to telemetry for treatment of the following condition: #Cough with hemoptysis due to community-acquired infection with the possibility of neoplasm , small right pleural effusion: Patient was continuously monitored on telemetry, he was treated with IV ceftriaxone and azithromycin, pulmonology and ID were onboard. Patient had ultrasound-guided thoracocentesis and it showed:Pleural fluid looks exudate with increased WBC and LDH in addition to increased RBCs which might be hemorrhagic versus traumatic. Differential diagnosis includes parapneumonic versus malignant Will need to follow-up on cytology and microbiology pleural fluid to rule out malignancy Patient was discharged on p.o. azithromycin for 2 more days #Atrial fibrillation with therapeutic INR: Initially his warfarin had to be held for the thoracocentesis, patient was treated with IV heparin drip for short time till he got the thoracocentesis, he was discharged on his home dose of warfarin Interstitial lung disease Acute on chronic hypoxic respiratory failure: Most likely due to pneumonia Diabetes mellitus: He was monitored with fingerstick glucose, will continue with home dose of Levemir 62 daily, in addition to NovoLog sliding scale Patient will need outpatient evaluation for possible underlying neoplasm Follow-up pleural fluid cytology DVT prophylaxis Alps Code full Allergies: Coded Allergies: No Known Allergies (09/03/17) Disposition Summary Disposition Principal Diagnosis: Pneumonia, pleural effusion Additional Diagnosis: A. fib Discharge Disposition: home or self care Discharge Instructions General Discharge Information Code Status: Full Code Patient's Diet: Consistent carbohydrate Patient's Activity: As tolerated Follow-Up Instructions/Appts: Please follow up with PCP within one week after discahrge Please follow up with Dr. Judge lung doctor within one week after discharge Please followup with Dr. Alejandro cardiology after discharge Please take antibotic as prescribed Medications at Discharge Discharge Medications: Stop taking the following medications: Metoprolol Succinate (Metoprolol Succinate) 100 MG TAB.ER.24H ORAL Every night Qty = 60 Warfarin Sodium (Coumadin) (Unknown Strength) TABLET ORAL DAILY Continue taking these medications: Digoxin (Digoxin) 250 MCG TABLET 1 Tablet ORAL DAILY Qty = 90 Comments: Last Taken: 01/15/18 Time: 8:05 AM Glipizide (Glipizide) 10 MG TABLET 1 Tablet ORAL Every Morning Qty = 90 Comments: NOT GIVEN IN HOSPITAL Valsartan (Valsartan) 80 MG TABLET 1 Tablet ORAL DAILY Qty = 90 Comments: Last Taken: 01/15/18 Time: 08:05 AM (COZAAR 25MG GIVEN) Insulin Lispro (Humalog Kwikpen U-100) 100 UNIT/ML INSULN.PEN 9 Units Inject into fatty tissue BEFORE MEALS AND AT BEDTIME Qty = 15 Comments: Last Taken: 01/15/18 Time: 12:00 PM (GIVEN PER SS) Insulin Glargine,Hum.rec.anlog (Lantus Solostar) 100 UNIT/ML (3 ML) INSULN.PEN 32 Units Inject into fatty tissue Every Morning Qty = 15 Comments: Last Taken: 01/15/18 Time: 8:05 AM (LEVIMER GIVEN) Oxycodone HCl/Acetaminophen (Oxycodone-Acetaminophen 5-325) 5 MG-325 MG TABLET 1 Tablet ORAL THREE TIMES A DAY NEEDED as needed for PAIN Qty = 90 Comments: NOT GIVEN IN HOSPITAL. Trazodone HCl (Trazodone HCl) 100 MG TABLET 1 Tablet ORAL Every night Qty = 90 Comments: NOT GIVEN IN HOSPITAL Gabapentin (Gabapentin) 300 MG CAPSULE 1 Capsule ORAL THREE TIMES DAILY as needed for NERVE PAIN Qty = 90 Comments: Last Taken: 01/10/18 Time: 6 PM Levocetirizine Dihydrochloride (Levocetirizine Dihydrochloride) 5 MG TABLET 1 Tablet ORAL Every night Qty = 90 Comments: NOT GIVEN IN HOSPITAL Fluticasone/Vilanterol (Breo Ellipta 200-25 Mcg INH) 200 MCG-25 MCG/DOSE BLST.W.DEV 1 PUFF Inhale through mouth Every Morning Qty = 60 Comments: NOT GIVEN IN HOSPITAL Ipratropium [place] (Ipratropium [place]) 21 MCG (0.03 %) SPRAY 2 Lester Both sides of nose As Directed as needed for NASAL CONGESTION Qty = 30 Comments: NOT GIVEN IN HOSPTIAL Saxagliptin (Onglyza) 5 MG TABLET 1 Tablet ORAL Every Morning Qty = 30 Comments: NOT GIVEN IN HOSPITAL Multiple Vitamin (Multivitamins) 1 EACH TABLET 1 Tablet ORAL DAILY Comments: NOT GIVEN IN HOSPITAL Furosemide (Lasix) 40 MG TABLET 1 Tablet ORAL DAILY Qty = 30 Comments: Last Taken: 01/15/18 Time: 08:05 AM Magnesium Oxide (Magnesium Oxide) (Unknown Strength) TABLET Unknown Dose ORAL Every Morning Comments: Last Taken: 01/15/18 Time: 08:05 AM Tamsulosin HCl (Tamsulosin HCl) 0.4 MG CAP.ER.24H 1 Capsule ORAL DAILY Qty = 90 Comments: Last Taken: 01/15/18 Time: 08:05 AM Alprazolam (Alprazolam) 0.5 MG TABLET 1 Tablet ORAL 2 x Daily as needed as needed for ANXIETY Qty = 60 Comments: NOT GIVEN IN HOSPITAL. Start taking the following new medications: Azithromycin (Azithromycin) 500 MG TABLET 500 Milligram ORAL DAILY Qty = 2 No Refills Instructions: . Comments: Last Taken: 01/15/18 Time: 08:05 AM Warfarin Sodium (Coumadin) 5 MG TABLET 1 Tablet ORAL DAILY Qty = 30 No Refills Instructions: . Comments: NOT GIVEN IN HOSPITAL WAS ON HEPARIN DRIP. Metoprolol Succ XL (Toprol XL) 100 MG TAB.ER.24H 150 Milligram ORAL Every night Qty = 30 No Refills Instructions: . Comments: Last Taken: 01/14/18 Time: 10 PM Diltiazem HCl (Cardizem) 30 MG TABLET 30 Milligram ORAL EVERY 8 HOURS Qty = 90 No Refills Instructions: . Comments: Last Taken: 01/15/18 Time: 2 PM Copies To: Hallie HICKEY,Brittnee Andres Attending MD Review Statement Documenting Attending: Gloria Willingham MD Other Findings: 72 o/m with acute hypoxic respiratroy failure on admission is treated for community acquired pnenumonia right sided and complicated with parapneumopnic effusion s/p thoracocentesis. Lymphadenopathy might benefit from EBUS in future. Outpatient PET scan once infection resolves. Afib rate controlled on anticoagulation warfarin. rate controlled on metoprolol and cardizem. Cardiology Dr Alejandro following. Discharge home with Po abx. FOLLOW Pleural fluid cytology as outpatient with Dr Judge. DISCHARGE FOLLOW UP Pulmoanry Dr Judge in 2 weeks of discharge Card[address] Dr Alejandro in 2 weeks of discharge
--- NOTE | 2018-01-15 16:44 | PN- Infect Dx ---
Subjective Subjective: Afebrile. He complains of fatigue but denies any chest pain, shortness of breath or cough status post right thoracentesis earlier today. Objective Last 24 Hrs of Vital Signs/I&O Vital Signs Date Time Temp Pulse Resp B/P B/P Pulse O2 O2 Flow FiO2 Mean Ox Delivery Rate 01/15 1418 98.1 91 20 124/70 93 Room Air 01/15 1303 92 118/60 01/15 0805 88 132/68 01/15 0805 88 132/68 01/15 0805 88 132/68 01/15 0800 94 Nasal 1.0L Cannula 01/15 0634 88 132/68 01/15 0621 98.7 88 20 132/68 93 Nasal Cannula 01/15 0000 Nasal 1.0L Cannula 01/14 2208 90 142/80 01/14 2207 90 142/80 01/14 2133 98.2 92 20 142/80 93 Nasal Cannula Intake & Output 01/15 1600 01/15 0800 01/15 0000 Intake Total 400 180 Output Total 607 097 7864 Balance -250 -100 -1470 Intake, Oral 400 180 Output, Urine 483 875 6570 Patient 287 lb 287 lb Weight Weight Bed scale Measurement Method Physical Exam Other Physical Findings: He appears comfortable in no acute distress Lungs decreased breath sounds at the right base Heart irregular rhythm with no murmur Extremities no cyanosis, clubbing or edema Results Last 24 Hours of Lab Results: Laboratory Tests 01/15 01/15 01/15 01/15 1020 1020 1020 UNK Hematology Lymphocytes (%) 41 % Normal PMNs (%) 45 Misc Hematology Test (%) Miscellaneous Flow Cytometry Specimen Pending Phlebotomy Draw Site RT THORACENTESIS Other Body Source Fluid WBC (0 - 5 /CUMM) 5830 H Fld Mesothelial Cells (%) Fld Total RBCs Counted (0 /CUMM) 55399 H Fluid Glucose (mg/dL) 246 Fluid Total Protein (g/dL) 4.6 Fluid Albumin (g/dL) 2.1 Fluid LDH (U/L) 2093 Fluid Amylase (U/L) < 30 Pleural pH (PH) 7.39 01/15 01/15 01/14 0618 0000 1719 Chemistry Sodium (137 - 145 mmol/L) 135 L Potassium (3.5 - 5.1 mmol/L) 4.0 Chloride (98 - 107 mmol/L) 96 L Carbon Dioxide (22 - 30 mmol/L) 27 Anion Gap (5 - 16) 11 BUN (9 - 20 mg/dL) 11 Creatinine (0.7 - 1.2 mg/dL) 0.5 L Estimated GFR (>60 ml/min) > 60 BUN/Creatinine Ratio (7 - 25 %) 22.0 Lactate Dehydrogenase (313 - 618 U/L) 609 Albumin (3.5 - 5.0 g/dL) 3.0 L Coagulation APTT (25 - 37 SEC) 29 Cancelled Hematology CBC w Diff NO MAN DIFF REQ WBC (4.8 - 10.8 /CUMM) 11.2 H RBC (4.70 - 6.10 /CUMM) 4.95 Hgb (14.0 - 18.0 G/DL) 14.7 Hct (42 - 52 %) 43.1 MCV (80.0 - 94.0 FL) 87.0 MCH (27.0 - 31.0 PG) 29.8 MCHC (33.0 - 37.0 G/DL) 34.2 RDW (11.5 - 14.5 %) 13.4 Plt Count (130 - 400 /CUMM) 168 MPV (7.4 - 10.4 FL) 10.6 H Gran % (42.2 - 75.2 %) 61.1 Lymphocytes % (20.5 - 51.1 %) 22.8 Monocytes % (1.7 - 9.3 %) 12.4 H Eosinophils % (0 - 5 %) 3.2 Basophils % (0.0 - 2.0 %) 0.5 Absolute Granulocytes (1.4 - 6.5 /CUMM) 6.8 H Absolute Lymphocytes (1.2 - 3.4 /CUMM) 2.5 Absolute Monocytes (0.10 - 0.60 /CUMM) 1.4 H Absolute Eosinophils (0.0 - 0.7 /CUMM) 0.4 Absolute Basophils (0.0 - 0.2 /CUMM) 0.1 Other Body Source Fluid WBC Cancelled Fld Total RBCs Counted Cancelled 01/14 1719 Other Body Source Fluid Albumin Cancelled Last 24 Hours of Nish Results: Right pleural fluid culture pending, with gram stain revealing many white blood cells and no organisms Recent Imaging Studies: Chest x-ray postthoracentesis is negative for any pneumothorax; persistent nonspecific pleural-based opacity of the right lung field is still present Assessment/Plan ID Impression: Stable, with temperatures remaining normal and white blood cell count still mildly elevated, now on Azithromycin alone, Day 5 of treatment for a right lower lobe pneumonia, complicated by an effusion, status post thoracentesis earlier today revealing an exudate, which is consistent with a parapneumonic effusion. Suggestion: 1. Further evaluation for possible underlying neoplasm as an outpatient per Pulmonary 2. Follow-up pleural fluid cytology 3. Continue Azithromycin for 2 more days
== END 2018-01-15 17:00 | DRG 193 ==
LOC: ERH 09:09 → 1NO 14:21 → ERHI 14:21 → ENRESERV 15:05 → ENTRNSPT 16:22 → EDTRNSPT 16:31 → EDTRNSPTSTS 16:31 → 1NO 16:40 → CMPTRNSPT 17:07 → 1NO 17:35 → ENPENDDIS 01-15 13:37 → 1NO 01-15 17:00
PROVIDERS: Emergency Medicine; Radiology Vascular & Interventional Radiology; Student in an Organized Health Care Education/Training Program
PROC: 0W993ZZ Drainage of Right Pleural Cavity, Percutaneous Approach (ICD-10-PCS; principal; 2018-01-15)
DX: J18.9 Pneumonia, unspecified organism (principal); J96.01 Acute respiratory failure with hypoxia; R04.2 Hemoptysis; Z68.41 Body mass index [BMI] 40.0-44.9, adult; J90 Pleural effusion, not elsewhere classified; Z79.01 Long term (current) use of anticoagulants; E11.40 Type 2 diabetes mellitus with diabetic neuropathy, unspecified; Z79.4 Long term (current) use of insulin; Z79.84 Long term (current) use of oral hypoglycemic drugs; G47.33 Obstructive sleep apnea (adult) (pediatric); I50.812 Chronic right heart failure; I27.20 Pulmonary hypertension, unspecified; E66.01 Morbid (severe) obesity due to excess calories; I48.2 Chronic atrial fibrillation; I48.91 Unspecified atrial fibrillation; F41.9 Anxiety disorder, unspecified; M19.90 Unspecified osteoarthritis, unspecified site; Z91.19 Patient's noncompliance with other medical treatment and regimen
CPT/HCPCS: 1NP; 87075; 36415; 36592; 71045; 71046; 81001; 82436; 87040; 87070; 87449; 87450; 88184; 88305; 93005; 93010; 93306; 93970; J0456; J0696; J1644; J1940; J7040; J7508

== ENCOUNTER 2018-03-10 19:21 | Inpatient (IN) | payer OTHER, MEDICARE ==
[~2018-03-10] VITALS: Ht 180.3 cm; Wt 120.0 kg
[~2018-03-10 19:21] MED LIST changes: +ALPRAZOLAM0.5 M4 PO; +AZITHROMYCIN500 M3 PO; +CARDIZEM30 M1 PO; +COUMADIN7.5 M1 PO; +MAGNESIUM OXID420 M1 PO; +TAMSULOSIN HCL0.4 M1 PO; +TOPROL XL100 M1 PO
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
[2018-03-10 21:06] LABS: ABSOLUTE BASOPHIL COUNT 0 /CUMM (0.0-0.2); ABSOLUTE EOSINOPHIL COUNT 0.2 /CUMM (0.0-0.7); ABSOLUTE LYMPH COUNT 1.6 /CUMM (1.2-3.4); ABSOLUTE MONOCYTE COUNT 1.1 /CUMM (0.10-0.60); BASOPHIL % 0.3 % (0.0-2.0); EOSINOPHIL % 2.4 % (0-5); GRANULOCYTE % 70.6 % (42.2-75.2); MEAN CORPUSCULAR HGB 29.4 PG (27.0-31.0); MEAN CORPUSCULAR HGB CONC 33.5 G/DL (33.0-37.0); MEAN CORPUSCULAR VOLUME 87.8 FL (80.0-94.0); MEAN PLATELET VOLUME 9.7 FL (7.4-10.4); PLATELET COUNT 122 /CUMM (130-400); WHITE BLOOD CELL COUNT 9.9 /CUMM (4.8-10.8)
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
[2018-03-10 23:40] VITALS: BP 130/68
--- NOTE | 2018-03-10 23:43 | CT SCAN REPORT ---
EXAMINATION: CT MAXILLOFACIAL WITH CONTRAST CLINICAL INFORMATION: Redness of nose. Conjunctival injection. Evaluate for cellulitis, cavernous sinus thrombus. COMPARISON: None TECHNIQUE: Multidetector helical imaging was performed in the axial plane with generation of coronal and sagittal reformatted images. The examination was performed after the administration of 95 mL of Optiray 320 intravenous contrast DLP: 622 mGy-cm FINDINGS: FRONTAL SINUSES AND DRAINAGE PATHWAYS: Normal. MAXILLARY SINUSES AND DRAINAGE PATHWAYS: Minimal mucoperiosteal thickening bilaterally. The drainage pathways are patent. ETHMOID SINUSES: Normal. SPHENOID SINUSES AND DRAINAGE PATHWAYS: Normal. ADDITIONAL RELEVANT FINDINGS: The ostiomeatal complexes are well-aerated. The lamina papyracea are intact. The nasal passages are clear. The carotid canals are normally covered by bone. The ethmoid roofs are symmetric. The temporal mandibular joints are well aligned. There is mild right periorbital soft tissue swelling, with faint right preseptal edema noted. No post septal extension of inflammation. No retro-orbital inflammation. The globes are symmetric. The extraocular muscles are intact. Symmetric appearance of the cavernous sinuses. The visualized mastoid air cells are clear. Limited evaluation demonstrates no acute intracranial findings. IMPRESSION: Mild inflammatory changes in the right periorbital region which may represent preseptal cellulitis. No post septal extension of inflammation. No evidence of cavernous sinus thrombosis.
[2018-03-11] MEDS ORDERED: LOSARTAN POTASS50 M1 PO (00:16)
[2018-03-11] MEDS ORDERED: WARFARIN SODIU7.5 M1 PO (00:16)
[2018-03-11] MEDS ORDERED: COUMADIN5 M2 PO (00:17)
[2018-03-11 00:43] LABS: PT 25.6 SEC (9.4-12.5)
[2018-03-11 06:46] VITALS: BP 146/70
--- NOTE | 2018-03-11 07:28 | PN- Housestaff ---
See Addendum Melody Bravo 03/11/18 0728: Subjective Follow-up For: Facial cellulitis Subjective: Patient was seen and examined at bedside. He says the pain in his nose is not better. He also complains of burning with the eyedrops. He endorses photophobia. However, he denies any visual changes, painful eye movement, excessive tearing of the eyes, headache radiation of the pain anywhere else on his face. He denies fever, chills, nausea, vomiting, spreading of the swelling or erythema. Review of Systems Constitutional: Reports: see HPI. Objective Last 24 Hrs of Vital Signs/I&O Vital Signs Date Time Temp Pulse Resp B/P B/P Pulse O2 O2 Flow FiO2 Mean Ox Delivery Rate 03/11 815 83 146/70 03/11 0815 83 146/70 03/11 0814 83 146/70 03/11 0646 97.9 83 18 146/70 95 Room Air 03/11 0640 83 146/70 03/10 2340 98.3 91 20 130/68 93 Room Air 03/10 2256 92.0 95 18 139/59 97 07 1959 Room Air 03/10 1943 99.3 100 18 110/75 93 Room Air Intake & Output 03/11 1600 03/11 0800 03/11 0000 Intake Total 610 0 Output Total 600 Balance 10 0 Intake, IV 130 Intake, Oral 480 0 Number 0 Bowel Movements Output, Urine 600 Patient 265 lb Weight Weight Bed scale Measurement Method Physical Exam General Appearance: Alert, Oriented X3, Cooperative, No Acute Distress Skin: No Rashes Skin Temp/Moisture Exam: Warm/Dry Sepsis Skin Exam (color): Normal for Ethnicity HEENT: Atraumatic, PERRLA, All extraocular movements intact erythema in the nose , with a minor skin breakdown in the left nostril tenderness in the nasolabial folds b/ conjuctival injection, no active discharge, no tenderness to palpation in the supraorbital, infraorbital region, no tenderness in the region of frontal and maxilary sinuses Neck: Supple Cardiovascular: Regular Rate, Normal S1, Normal S2 Lungs: Clear to Auscultation Abdomen: Soft, No Tenderness Extremities: No Edema, Normal Pulses Assessment/Plan Assessment: Mr Vu is a 72M with a PMH of IDDM, Afib on Coumadin, Hep C (follows Dr Street), LARISA, COPD vs ILD (pt unsure of diagnosis but follows Dr Judge) who comes in for a 5 day history of nasal swelling, tenderness, b/l eye redness and discharge. The patient got a cut on belen inside of his nose while shaving his nose hair. He reports photophobia and burining in his eyes. However, he does not report any acute visual changes. On examination, there is oozing of blood from the right nostril. There is diffuse erythema on the nose along with some tenderness. Visual acuity is normal and extraocular movements are intact. No obvious discharge from the eyes. Notably, he has had multiple episodes of cellulitis in the past, with history of surgical excision of questionable cellulitis from his face by a surgeon. The patient is afebrile. White blood count is not raised. A maxillofacial CT scan in the ED yesterday revealed preseptal cellulitis. Problems: 1. Preseptal cellulits secondary top trauma 2. Thrombocytpenia 3. PMH as above PLAN: 1. Preseptal cellulitis -The patient is on IV Unasyn 3g q6 -We gave him one dose of Vancomycin given the risk of MRSA due to repeated episodes of cellulitis -We have requested an Ophthalmology consult. Will follow up on recommendations -ID consult if he worsens -We will send blood cultures for a possible MRSA -Nasal surveillance cultures due today, will follow up on the report 2. IDDM - Novolog SS/AccuChek/Levemir 16U BID adjusted from home dose -ENDO consult if neccessary 3.Afib on coumadin - Daily INR and dose coumadin 5mg or per INR. - Patient is taking 5mg Warfarin on TuTatSun, and 7.5mg on MWF. DVT Ppx IV access Full code - Problem List: 1. Facial cellulitis Pain Ratin Pain Location: nose Pain Goal: Pain 4 or less Pain Plan: pathway Tomorrow's Labs & Rationales: cbc, bep, blood cultures Gloria Willingham 03/11/18 1033: Attending MD Review Statement Attending Statement Attending MD Statement: examined this patient, discuss w/resident/PA/GUIDEMAN, agreed w/resident/PA/GUIDEMAN, discussed with family, reviewed EMR data (avail), discussed with nursing, discussed with case mgmt, reviewed images, amended to note Attending Assessment/Plan: Agree with above. Ophtalmology consult. iv abx. Nasal surveillance. Control hyperglycemia. monitor labs.
[2018-03-11 08:22] LABS: ABSOLUTE BASOPHIL COUNT 0 /CUMM (0.0-0.2); ABSOLUTE EOSINOPHIL COUNT 0.3 /CUMM (0.0-0.7); ABSOLUTE GRANULOCYTE CT 5.3 /CUMM (1.4-6.5); ABSOLUTE LYMPH COUNT 1.9 /CUMM (1.2-3.4); BASOPHIL % 0.3 % (0.0-2.0); EOSINOPHIL % 3.9 % (0-5); GRANULOCYTE % 62.1 % (42.2-75.2); HEMATOCRIT 42.5 % (42-52); MEAN CORPUSCULAR HGB CONC 34.1 G/DL (33.0-37.0); MEAN PLATELET VOLUME 12.2 FL (7.4-10.4); RBC DISTRIBUTION WIDTH 14.8 % (11.5-14.5); RED BLOOD CELL CT 4.83 /CUMM (4.70-6.10); WHITE BLOOD CELL COUNT 8.5 /CUMM (4.8-10.8)
[2018-03-11 09:29] LABS: PLATELET COUNT 93 /CUMM (130-400)
[2018-03-11 14:07] VITALS: BP 134/84
[2018-03-11 15:56] LABS: PT 21.5 SEC (9.4-12.5)
[2018-03-11 20:56] VITALS: BP 170/90
[2018-03-12 06:28] VITALS: BP 136/80
--- NOTE | 2018-03-12 08:01 | PN- Housestaff ---
Meldoy Bravo 03/12/18 0800: Subjective Follow-up For: facial cellulitis Subjective: Patient was seen and examined at bedside. The erythema on his nose has improved from yesterday. He says he does have photophobia, though his eyes are stil burning. He reports the pain in his nose is persistent. He reported he scratched his leg yesterday and got a minor cut. However, he denies fever, chiils, palpiattions, nausea, vomimting. Review of Systems Constitutional: Reports: see HPI. Objective Last 24 Hrs of Vital Signs/I&O Vital Signs Date Time Temp Pulse Resp B/P B/P Pulse O2 O2 Flow FiO2 Mean Ox Delivery Rate 03/12 806 88 132/76 03/12 08 88 132/76 03/12 08 88 132/76 03/12 0628 99.8 90 18 136/80 93 03/12 0531 90 136/80 03/11 2102 96 170/90 03/11 2102 96 170/90 03/11 2056 98.8 96 18 170/90 96 Room Air 03/11 1407 98.2 88 18 134/84 94 Room Air 03/11 1308 77 Intake & Output 03/12 1600 03/12 0800 03/12 0000 Intake Total 720 640 Output Total 1725 Balance 720 -1085 Intake, IV 240 620 Intake, Oral 480 20 Number 0 0 Bowel Movements Output, Urine 1725 Physical Exam General Appearance: Alert, Oriented X3, Cooperative, No Acute Distress HEENT: Nasal erythema with crusting present b/l conjuntivsl injection,, EOMI Neck: Supple Cardiovascular: Regular Rate, Normal S1, Normal S2 Lungs: Clear to Auscultation Abdomen: Soft, No Tenderness Assessment/Plan Assessment: Mr Vu is a 72M with a PMH of IDDM, Afib on Coumadin, Hep C (follows Dr Street), LARISA, COPD vs ILD (pt unsure of diagnosis but follows Dr Judge) who comes in for a 6 day history of nasal swelling, tenderness, b/l eye redness and discharge. The patient got a cut on the inside of his nose while shaving his nose hair. He reports photophobia and burining in his eyes. However, he does not report any acute visual changes. On examination, there is diffuse erythema on the nose along with some tenderness. Visual acuity is normal and extraocular movements are intact. No obvious discharge from the eyes. However, B/L conjunctival injectionis present. Notably, he has had multiple episodes of cellulitis in the past, with history of surgical excision of questionable cellulitis from his face by a surgeon. The patient is afebrile. White blood count is not raised. A maxillofacial CT scan in the ED yesterday revealed preseptal cellulitis. Problems: 1. Preseptal cellulits secondary top trauma 2. Thrombocytpenia 3. PMH as above PLAN: 1. Preseptal cellulitis -The patient is on IV Unasyn 3g q6 -We gave him one dose of Vancomycin given the risk of MRSA due to repeated episodes of cellulitis -We have requested an Ophthalmology consult. agrees with the plan. -Nasal surveillance cultures due today, will follow up on the report -We can discharge the patient on Augmentin 875 PO BID 2. IDDM - Novolog SS/AccuChek/Levemir 16U BID adjusted from home dose -ENDO consult if neccessary 3.Afib on coumadin - Daily INR and dose coumadin 5mg or per INR. - Patient is taking 5mg Warfarin on Tue,[place], Sat and Sun, and 7.5mg on MWF. DVT Ppx IV access Full code Problem List: 1. Facial cellulitis 2. Afib 3. Insulin dependent diabetes mellitus Pain Ratin Pain Location: nose Pain Goal: Pain 4 or less Pain Plan: pathway Tomorrow's Labs & Rationales: Gloria Jett 03/12/18 1017: Attending MD Review Statement Attending Statement Attending MD Statement: examined this patient, discuss w/resident/PA/FIELD INSTALLER, agreed w/resident/PA/FIELD INSTALLER, discussed with family, reviewed EMR data (avail), discussed with nursing, discussed with case mgmt, reviewed images, amended to note Attending Assessment/Plan: Patient with pmh of DM with insulin dependent, neuropathy, BPH, hypertension comes with preseptal cellultiis and started on iv unasyn. Ophthalmology consulted and no acute intervention planned with continuation of antibiotics. Patient does have pets at home including cats and dogs. He is feeling better with iv unasyn and can be changed to augmentin PO at discharge. Patient can resume home meds including gabapentin for DM neuropathy and Tamsulosin/flomax for BPH. Patient with h/o afib rate controlled and on anticoagulation with couamdin mild subtherpeutic at dsicharge. Needs to follow INR outpatient and continue with coumadin. Pateint needs to follow up with PCP in 1 week at discharge.
[2018-03-12 08:06] LABS: ABSOLUTE BASOPHIL COUNT 0 /CUMM (0.0-0.2); ABSOLUTE EOSINOPHIL COUNT 0.4 /CUMM (0.0-0.7); ABSOLUTE GRANULOCYTE CT 5.5 /CUMM (1.4-6.5); ABSOLUTE LYMPH COUNT 1.9 /CUMM (1.2-3.4); ABSOLUTE MONOCYTE COUNT 0.9 /CUMM (0.10-0.60); BASOPHIL % 0.3 % (0.0-2.0); EOSINOPHIL % 4.3 % (0-5); MEAN CORPUSCULAR HGB CONC 34.1 G/DL (33.0-37.0); MEAN PLATELET VOLUME 10.6 FL (7.4-10.4); PLATELET COUNT 117 /CUMM (130-400); RED BLOOD CELL CT 4.78 /CUMM (4.70-6.10); WHITE BLOOD CELL COUNT 8.7 /CUMM (4.8-10.8)
[2018-03-12 08:22] LABS: PT 19.5 SEC (9.4-12.5)
[2018-03-12] MEDS ORDERED: AUGMENTIN 875-1 EACH PO (10:07)
[2018-03-12] MEDS ORDERED: VALSARTAN80 M1 PO (10:17)
[2018-03-12] MEDS ORDERED: COUMADIN5 M2 PO (10:22)
--- NOTE | 2018-03-12 10:27 | Patient Discharge Instructions ---
Discharge Instructions General Discharge Information You were seen/treated for: cellulitis Special Instructions: Please f/u with your PCP within 1 week Please seek imediate medical attention if you develop vision problem or eye swelling Please finish your antibioticcs for a total of 14 days Please follow up with your Primary care physician regarding recheck of your INR, The goal is 2-3 Acute Coronary Syndrome Inclusion Criteria At DC or during hospital stay patient has or had the following: ACS DIAGNOSIS No Discharge Core Measures Meds if any: Prescribed or Continued at Discharge Meds if any: NOT Prescribed or Continued at Discharge Congestive Heart Failure Inclusion Criteria At DC or during hospital stay patient has or had the following: CHF DIAGNOSIS No Discharge Core Measures Meds if any: Prescribed or Continued at Discharge Meds if any: NOT Prescribed or Continued at Discharge Cerebrovascular accident Inclusion Criteria At DC or during hospital stay patient has or had the following: CVA/TIA Diagnosis No Discharge Core Measures Meds if any: Prescribed or Continued at Discharge Meds if any: NOT Prescribed or Continued at Discharge Venous thromboembolism Inclusion Criteria VTE Diagnosis No VTE Type NONE VTE Confirmed by (Test) NONE Discharge Core Measures - Per Current guidelines, there needs to be overlap - treatment for the first 5 days of Warfarin therapy. - If discharged on Warfarin prior to 5 days of - overlap therapy, the patient will need to be - assessed for post discharge needs including - *Post discharge parental anticoagulation - *Warfarin and/or parental anticoagulation education - *Follow up date to check INR post discharge At least 5 days overlap therapy as Inpatient No Meds if any: Prescribed or Continued at Discharge Note: Overlap Therapy is Warfarin and Anticoagulant Meds if any: NOT Prescribed or Continued at Discharge
[2018-03-12 14:00] VITALS: BP 142/80
--- NOTE | 2018-03-12 16:02 | Discharge Summary ---
Visit Information Visit Dates Admission Date: 03/10/18 Discharge Date: 03/12/18 Hospital Course Course Attending Physician: Gloria Willingham MD Primary Care Physician: Hallie HICKEY,Brittnee Andres Hospital Course: Mr. Vu is a 72yo M w/ PMH of DM, COPD/LARISA non-compliant w/ CPAP, hx of Hep C, hx of A-fib on coumadin, OA, Anxiety, was admitted to the [facility] floor for facial cellulitis. On examination at addmission, there was diffuse erthema on the nose extending down to the nasolabial folds. Tenderness was appreciated. The patient also had b/l conjuctival injection, with photophobia. However, EOM were intact and not painful. On admission, Vitals: Stable afebrile, tachycardia 100, RR 18, BP 110/75, 93% RA Labs: -CBC: No leukocytosis/anemia, Thrombocytopenia 122 decreased from baseline 168 in 01/2018. Had similar thrombocytopenia in the past. -CMP: Hyponatremia 130, Hyperglycemia 215. -UA/Microbiology: No previous positive cultures -CT Sinus: Imaging revealed preseptal cellulitis -EKG: NSR w/o significant ST-T abnormalities, unchanged from previous. -Last Echo:01/[address] Alejandro, WNL EF% !. Cellulitis: -Surveillance culture of the nares did not reveal any MRSA -The patient was started on Unasyn 3g q6, and was given one dose of Vancomycin before culture results came back given his extensive past medical history of cellulitis. - He was given Flurbiprofen for his eye symtoms. -Erythema of the nose improved over the next 2 days. Normal saline spary was given for the crusting -Photophobia had resoved on the day of the discharge. He did have a mild conjuctival injection. However, visual acuity was intact and EOM were intact and nt painful. -The patient was dicharged home on Augmentin 875 BID for 11 days, to complete a 14 day course of antibiotics. 2. IDDM - Novolog SS/AccuChek/Levemir 16U BID was adjusted from home dose 3.Afib on coumadin - Patient was taking 5mg Warfarin on e,Fri, Fri and Fri, and 7.5mg on MW. INR was checked daily and Warfarin doses were administered accordingly Home medications for hypertension, hyperlipidemia, BPH were continued. DVT prophylaxis was given at al times. Allergies: Coded Allergies: No Known Allergies (09/03/17) Disposition Summary Disposition Principal Diagnosis: Preseptal cellulitis Additional Diagnosis: None Discharge Disposition: home or self care Discharge Instructions General Discharge Information Code Status: Full Code Patient's Diet: Regular diet Patient's Activity: As tolerated Follow-Up Instructions/Appts: The patient was requested to contnue his antibiotics for 11 day to complete a 14 day course of antibiotics. He was requested to follow up with his PCP to adjust his Warfarin dose to an INR of 2-3 Medications at Discharge Discharge Medications: Stop taking the following medications: Azithromycin (Azithromycin) 500 MG TABLET ORAL DAILY Qty = 2 Continue taking these medications: Digoxin (Digoxin) 250 MCG TABLET 1 Tablet ORAL DAILY Qty = 90 Comments: Last Taken: 03/12/18 Time: 8:00 AM Glipizide (Glipizide) 10 MG TABLET 1 Tablet ORAL Every Morning Qty = 90 Comments: NOT GIVEN IN HOSPITAL Insulin Lispro (Humalog Kwikpen U-100) 100 UNIT/ML INSULN.PEN 9 Units SC BEFORE MEALS AND AT BEDTIME Qty = 15 Comments: Last Taken: 03/11/18 Time: 12:00 PM (NOVOLOG GIVEN PER SS) Insulin Glargine,Hum.rec.anlog (Lantus Solostar) 100 UNIT/ML (3 ML) INSULN.PEN 32 Units SC Every Morning Qty = 15 Comments: Last Taken: 03/12/18 Time: 8:00 AM (LEVEMIR GIVEN) Oxycodone HCl/Acetaminophen (Oxycodone-Acetaminophen 5-325) 5 MG-325 MG TABLET 1 Tablet ORAL THREE TIMES A DAY NEEDED as needed for PAIN Qty = 90 Comments: NOT GIVEN IN HOSPITAL. Trazodone HCl (Trazodone HCl) 100 MG TABLET 1 Tablet ORAL Every night Qty = 90 Comments: Last Taken: 03/11/18 Time: 9:00 PM Gabapentin (Gabapentin) 300 MG CAPSULE 1 Capsule ORAL THREE TIMES DAILY as needed for NERVE PAIN Qty = 90 Comments: NOT GIVEN IN HOSPTIAL Levocetirizine Dihydrochloride (Levocetirizine Dihydrochloride) 5 MG TABLET 1 Tablet ORAL Every night Qty = 90 Comments: NOT GIVEN IN HOSPITAL Fluticasone/Vilanterol (Breo Ellipta 200-25 Mcg INH) 200 MCG-25 MCG/DOSE BLST.W.DEV 1 PUFF Inhale through mouth Every Morning Qty = 60 Comments: NOT GIVEN IN HOSPITAL Ipratropium S[place]igent (Ipratropium S[place]igent) 21 MCG (0.03 %) SPRAY [address] [place] Both sides of nose As Directed as needed for NASAL CONGESTION Qty = 30 Comments: NOT GIVEN IN HOSPTIAL Saxagliptin (Onglyza) 5 MG TABLET 1 Tablet ORAL Every Morning Qty = 30 Comments: NOT GIVEN IN HOSPITAL Multiple Vitamin (Multivitamins) 1 EACH TABLET 1 Tablet ORAL DAILY Comments: NOT GIVEN IN HOSPITAL Furosemide (Lasix) 40 MG TABLET 1 Tablet ORAL DAILY Qty = 30 Comments: Last Taken: 03/12/18 Time: 8:00 AM Magnesium Oxide (Magnesium Oxide) (Unknown Strength) TABLET 400 Milligram ORAL Every Morning Comments: Last Taken: 03/12/18 Time: 08:00 AM Tamsulosin HCl (Tamsulosin HCl) 0.4 MG CAP.ER.24H 1 Capsule ORAL DAILY Qty = 90 Comments: Last Taken: 03/12/18 Time: 08:00 AM Alprazolam (Alprazolam) 0.5 MG TABLET 1 Tablet ORAL 2 x Daily as needed as needed for ANXIETY Qty = 60 Comments: NOT GIVEN IN HOSPITAL Metoprolol Succ XL (Toprol XL) 100 MG TAB.ER.24H 150 Milligram ORAL Every night Qty = 30 Instructions: . Comments: Last Taken: 03/11/18 Time: 9:00 PM Diltiazem HCl (Cardizem) 30 MG TABLET 30 Milligram ORAL EVERY 8 HOURS Qty = 90 Instructions: . Comments: Last Taken: 03/12/18 Time: 1:30 PM Warfarin Sodium (Warfarin Sodium) 7.5 MG TABLET 1 Tablet ORAL MWF Comments: Last Taken: 03/11/18 Time: 5:00 PM Valsartan (Valsartan) 80 MG TABLET 1 Tablet ORAL DAILY Qty = 30 Comments: Last Taken: 03/12/18 Time: 8:00 AM (RECEIVED 50MG COZAAR) Warfarin Sodium (Coumadin) 5 MG TABLET 1 Tablet ORAL SEE INSTRUCTIONS Qty = 30 Instructions: TAKE 1 TAB ON TUE,THURS,SAT,SUN Comments: NOT GIVEN IN HOSPITAL Start taking the following new medications: Amoxicillin/Potassium Clav (Augmentin 875-125 Tablet) 875 MG-125 MG TABLET 875 Tablet ORAL TWICE DAILY Days = 11 No Refills Comments: NOT GIVEN IN HOSPITAL Copies To: Hallie HICKEY,Brittnee Andres Attending MD Review Statement Documenting Attending: Maulik HICKEY,Gloria Other Findings: Patient with pmh of DM with insulin dependent, neuropathy, BPH, hypertension comes with preseptal cellultiis and started on iv unasyn. Ophthalmology consulted and no acute intervention planned with continuation of antibiotics. Patient does have pets at home including cats and dogs. He is feeling better with iv unasyn and can be changed to augmentin PO at discharge. Patient can resume home meds including gabapentin for DM neuropathy and Tamsulosin/flomax for BPH. Patient with h/o afib rate controlled and on anticoagulation with couamdin mild subtherpeutic at dsicharge. Needs to follow INR outpatient and continue with coumadin. Pateint needs to follow up with PCP in 1 week at discharge.
== END 2018-03-12 15:00 | DRG 603 ==
LOC: ERH 19:21 → 2NB 22:32 → ERHI 22:32 → 2NB 23:44 → ENPENDDIS 03-12 14:26 → 2NB 03-12 15:00
PROVIDERS: Hospitalist; Internal Medicine
DX: L03.211 Cellulitis of face (principal); L03.213 Periorbital cellulitis; F41.9 Anxiety disorder, unspecified; Z79.01 Long term (current) use of anticoagulants; I10 Essential (primary) hypertension; J44.9 Chronic obstructive pulmonary disease, unspecified; G47.33 Obstructive sleep apnea (adult) (pediatric); Z86.19 Personal history of other infectious and parasitic diseases; M19.90 Unspecified osteoarthritis, unspecified site; Z91.19 Patient's noncompliance with other medical treatment and regimen; H10.9 Unspecified conjunctivitis; D69.6 Thrombocytopenia, unspecified; H53.143 Visual discomfort, bilateral; I48.2 Chronic atrial fibrillation; Z79.4 Long term (current) use of insulin; Z79.84 Long term (current) use of oral hypoglycemic drugs; E11.40 Type 2 diabetes mellitus with diabetic neuropathy, unspecified; N40.0 Benign prostatic hyperplasia without lower urinary tract symptoms
CPT/HCPCS: 2NBP; 84133; 84300; 36415; 36592; 81003; 82436; 82570; 87040; 96374; J1650; J3370; J7040; J7508